=== PATIENT | male | born 1970 | race Caucasian/White ===

== ENCOUNTER 2019-03-24 16:16 | Observation (INO) | payer OTHER, MEDICAID, SELFPAY ==
[2019-03-24] VITALS (9 sets, daily range): BP systolic 95–128; BP diastolic 59–90; PULSE 60–90; RESP 11–18; TEMP 36.4–36.7; O2SAT 96–100
--- NOTE | 2019-03-24 18:31 | ED_ITS ---
HPI - Abdominal Pain General Chief Complaint: Abdominal Pain Stated Complaint: anal pain,insides dont feel good Time Seen by Provider: 03/24/19 18:14 Source: patient Mode of arrival: ambulatory Limitations: no limitations History of Present Illness HPI narrative: Patient is a 1 or a 48-year-old male who presents with multiple complaints including pain with hemorrhoids. He has had ongoing pain for at least 2 years but worse over last 10 days. He has used warm Parra preparation H, he says it is just not getting any better. He has been having some bloody mucousy stools which is not abnormal for him. He has a history of irritable bowel syndrome. He has pain from his upper abdomen to his toes not has also bee n ongoing for 2 years not any worse. He has had very little to eat or drink over last 5 days. In fact he said he has only had a pt of water today and yesterday. He says he does not have any constipation but he does have diarrhea. He has not had any fevers chills Related Data Previous Rx's Medication Instructions Recorded acetaminophen 1,000 mg PO Q6H #30 cap 03/24/19 amoxicillin-pot clavulanate 1 tab PO Q12H #10 tab 03/24/19 oxycodone See Rx Instructions .ROUTE 03/24/19 .COMPLEX PRN #14 tab Allergies Allergy/AdvReac Type Severity Reaction Status Date / Time No Known Drug Allergies Allergy Verified 03/24/19 20:15 Review of Systems Review of Systems Narrative: GENERAL: Denies chills, fatigue, malaise, fever, sweats, travel HEENT: Denies sinus pain, ear pain, sore throat, difficulty swallowing, neck pain RESPIRATORY: Denies dyspnea, cough, wheezing, hemoptysis, sputum. CARDIOVASCULAR: Denies chest pain, palpitations, orthopnea, edema GASTROINTESTINAL: See HPI : Denies dysuria, frequency, incontinence, hematuria, urinary retention, flank pain. MUSCULOSKELETAL: Denies weakness, joint pain, or bony pain SKIN: No rash, no erythema, no pruritus NEUROLOGIC: Denies weakness, dizziness, headache, numbness, change in speech, confusion PSYCHIATRIC: No concerning psychosocial issues. 12 point review of systems is negative except for those stated above and HPI [facility] Medical History Irritable bowel syndrome (Acute) Exam Initial Vital Signs Initial Vital Signs: Vital Signs Temperature 98.1 F 03/24/19 16:26 Pulse Rate 90 03/24/19 16:26 Respiratory Rate 18 03/24/19 16:26 Blood Pressure 121/86 03/24/19 16:26 Pulse Oximetry 100 03/24/19 16:26 GENERAL: Well-appearing, well-nourished and in no acute distress. HEENT: Head atraumatic,EOMI, pupils reactive, face symmetric CARDIOVASCULAR: Regular rate and rhythm without murmurs, rubs or gallops. RESPIRATORY: Breath sounds equal bilaterally, no wheezes rales or rhonchi. ABDOMEN: Soft, nontender. Normoactive bowel sounds all 4 quadrants. No guarding or rebound. RECTAL: External hemorrhoids tender on exam noted not thrombosed no gross blood is Hemoccult-negative no stool EXTREMITIES: Normal range of motion, no clubbing or edema. Neurovascularly intact NEUROLOGICAL: Alert and oriented x4.Normal gait and speech. SKIN: Warm, dry, no laceration, no petechiae, no rashes or lesions. Course Orders Ordered: ED Orders 03/24/19 18:32 CT abdomen pelvis w con Stat 03/24/19 18:55 Complete Blood Count AUTO DIFF Stat Comprehensive Metabolic Panel Stat Lipase Stat Discontinued Medications Acetaminophen (Tylenol) 325 mg PO NOW PRN PRN Reason: Pain, Mild (1-3) Bupivacaine HCl/Epinephrine Bitart (Marcaine 0.25% W/ Epi (Pf)) 5 ml SUBCUT NOW ONE Stop: 03/24/19 20:26 Last Admin: 03/24/19 20:43 Dose: Not Given Documented by: IGNACIA Bupivacaine HCl/Epinephrine Bitart (Sensorcaine 0.25% W/ Epi (Pf)) 30 ml INJ INTRA-OP ONE Stop: 03/24/19 20:42 Last Admin: 03/24/19 23:19 Dose: 30 ml Documented by: KIMBER Fentanyl (Sublimaze) 50 mcg IV Q5MIN PRN PRN Reason: Pain, Moderate (4-6) Hydromorphone HCl (Dilaudid) 1 mg IV NOW ONE Stop: 03/24/19 20:21 Last Admin: 03/24/19 20:23 Dose: 1 mg Documented by: EDA Hydromorphone HCl (Dilaudid) 0.5 mg IV Q5MIN PRN PRN Reason: Pain, Moderate (4-6) Sodium Chloride (Normal Saline 0.9%) 1,000 mls @ 1,000 mls/hr IV CONT BECKI Last Infusion: 03/24/19 20:21 Dose: 0 mls/hr Documented by: Admin: 03/24/19 19:00 Dose: 1,000 mls/hr Documented by: EDA Ceftriaxone Sodium/Dextrose (Rocephin) 1 gm in 50 mls @ 100 mls/hr IV NOW ONE Stop: 03/24/19 20:49 Last Infusion: 03/24/19 21:05 Dose: 0 mls/hr Documented by: Admin: 03/24/19 20:23 Dose: 100 mls/hr Documented by: EDA Metronidazole (Flagyl) 500 mg in 100 mls @ 100 mls/hr IV NOW ONE Stop: 03/24/19 22:51 Last Infusion: 03/24/19 22:57 Dose: 0 mls/hr Documented by: Admin: 03/24/19 22:51 Dose: 100 mls/hr Documented by: CHANI Ceftriaxone Sodium/Dextrose (Rocephin) 1 gm in 50 mls @ 100 mls/hr IV NOW ONE Stop: 03/24/19 22:22 Last Infusion: 03/24/19 22:50 Dose: 0 mls/hr Documented by: Admin: 03/24/19 22:40 Dose: 100 mls/hr Documented by: CHANI Lactated Ringer's (Lactated Ringers) 1,000 mls @ 42 mls/hr IV NOW ONE Stop: 03/25/19 22:00 Last Infusion: 03/25/19 00:15 Dose: 42 mls/hr Documented by: Admin: 03/24/19 22:13 Dose: 42 mls/hr Documented by: STEPHANIE Lactated Ringer's (Lactated Ringers) 1,000 mls @ 42 mls/hr IV CONT [facility] Ketorolac Tromethamine (Toradol) 30 mg IV NOW ONE Stop: 03/24/19 20:17 Last Admin: 03/24/19 20:20 Dose: 30 mg Documented by: EDA Lidocaine HCl (Urojet) 5 ml TOP NOW ONE Stop: 03/24/19 20:17 Last Admin: 03/24/19 20:20 Dose: 5 ml Documented by: EDA Metoclopramide HCl (Reglan) 10 mg IV NOW PRN PRN Reason: Nausea And Vomiting Ondansetron HCl (Zofran) 4 mg IV NOW PRN PRN Reason: Nausea And Vomiting Oxycodone/Acetaminophen (Percocet 5/325) 1 tab PO Q30MIN PRN PRN Reason: Mild or moderate pain Consultations Consultation #1: Dr. Domínguez, surgery updated on patient's symptoms CT results. Appears to be. periAnal abscess. Will come to ED to see and evaluate request rectal tray another supply at bedside. Time: 20:27 Vital Signs Vital signs: Vital Signs - 8 hr 03/24/19 18:18 03/24/19 20:32 Pulse Rate 74 68 Respiratory Rate 18 16 Blood Pressure [Right Arm] 119/86 125/71 Pulse Oximetry 100 98 MDM - Abdominal Pain Lab Data Attestation: I reviewed the patient's lab results. Result diagrams: 03/24/19 18:55 03/24/19 18:55 Labs: Lab Results 03/24/19 03/24/19 Range/Units 18:55 18:55 WBC 7.2 (4.5-11.0) X10^3/uL RBC 5.00 (4.5-5.9) X10^6/uL Hgb 14.3 (13.5-17.5) g/dL Hct 42.0 (41-53) % MCV 84.1 (80-100) fL MCH 28.6 (26-34) PG MCHC 34.0 (30-36) % RDW 13.7 (11.6-14.8) % Plt Count 187 (150-400) X10^3/uL Neut % (Auto) 75.4 H (50-75) % Lymph % (Auto) 13.3 L (25-40) % [place] % (Auto) 9.7 (3-14) % Eos % (Auto) 0.9 L (2-4) % Baso % (Auto) 0.7 (0-2) % Neut # (Auto) 5400 (4637-0487) /uL Lymph # (Auto) 1000 L (8107-4724) /uL [place] # (Auto) 700 (0-900) /uL Eos # (Auto) 100 (0-450) /uL Baso # (Auto) 100 (0-100) /uL Sodium 139 (137-145) mmol/L Potassium 3.2 L (3.4-5.1) mmol/L Chloride 98 (98-107) mmol/L Carbon Dioxide 28 (22-32) mmol/L BUN 14 (9-20) mg/dL Creatinine 1.00 (0.66-1.25) mg/dL Estimated GFR > 60.0 (>60) mL/min BUN/Creatinine Ratio 14.0 (6-22) Glucose 106 H (70-100) mg/dL Calcium 8.7 (8.4-10.2) mg/dL Total Bilirubin 0.7 (0.2-1.3) mg/dL AST 37 (17-59) IU/L ALT 45 (21-72) IU/L Alkaline Phosphatase 100 (38-126) U/L Total Protein 7.3 (6.3-8.2) g/dL Albumin 3.8 (3.5-5.0) g/dL Globulin 3.5 (1.7-4.1) g/dL Albumin/Globulin Ratio 1.1 (1.0-2.8) Lipase 73 (23-300) U/L MDM Narrative Medical decision making narrative: Patient is given a dose Dilaudid and antibiotics. Surgery in the ED to see and evaluate he has reviewed CT actually perirectal abscess. Patient will be going to the OR. Discharge Plan Departure Patient Disposition: Admitted as Observation Clinical Impression: Abscess of rectum Discharge Date/Time: 03/24/19 22:00 Admit Date/Time: 03/24/19 21:34 Admit Provider: Agapito Akbar
--- NOTE | 2019-03-24 18:32 | DI.CT.S_ITS ---
PROCEDURE: CT ABDOMEN PELVIS W CON INDICATIONS: ab pain all over TECHNIQUE: After the administration of intravenous contrast, 5 mm thick sections acquired from the diaphragm to the symphysis. 5 mm coronal and sagittal reformats were acquired. For radiation dose reduction, the following was used: automated exposure control, adjustment of mA and/or kV according to patient size. COMPARISON: [facility], , ABDOMEN ACUTE SERIES, 03/25/2016, 19:18. FINDINGS: Image quality: Excellent. ABDOMEN: Lung bases: Lung bases are clear. Heart size is normal. Solid organs: Liver is normal in size and enhancement. Gallbladder wall is not thickened. Biliary system is non dilated. Pancreas enhances normally. Spleen is normal in size and enhancement. No adrenal nodules. Kidneys demonstrate normal size and enhancement, without hydronephrosis. A 2 mm nonobstructing stone is incidentally noted within the right kidney, as on series 2 image 42. Peritoneum and bowel: There is focal distal colonic wall thickening seen. Surrounding inflammatory changes are seen. There is a left perianal abscess seen that measures up to 4.2 cm AP. This measures 1.7 cm transversely and 2.1 cm AP. Moderate surrounding inflammatory changes are seen. No definite small bowel wall thickening can be seen. There is a small to moderate amount of free fluid seen within the pelvis. No free air is seen. Nodes and vessels: No retroperitoneal or mesenteric adenopathy by size criteria. Aorta and inferior vena cava are normal in size. Miscellaneous: No ventral hernias. PELVIS: Genitourinary: Bladder wall thickness is normal. Miscellaneous: No inguinal hernias or adenopathy. Bones: No suspicious bony lesions. No vertebral body compression fractures. IMPRESSION: Distal colitis. There is a left perianal abscess seen. Given the appearance and age of the patient, concern is raised for ulcerative colitis. However, please correlate with infectious causes. Ischemia is considered to be less likely. A moderate amount of free fluid can be seen within the pelvis. No intraperitoneal abscess can be seen at this time. Please consider short-term followup. Incidental note is made of: 2 mm nonobstructing right-sided kidney stone Dictated by: Getachew Myers M.D. on 03/24/2019 at 19:56 Approved by: Getachew Myers M.D. on 03/24/2019 at 20:04
[2019-03-24] MEDS: SODIUM CHLORIDE 0.9% 1,000 ML 1000 ML IV (19:00)
[2019-03-24 19:12] LABS: Add Manual Diff / Slide Review NO; Basophils Absolute Auto 100 /uL (0-100); Basophils Percent Auto 0.7 % (0-2); Eosinophils Absolute Auto 100 /uL (0-450); Eosinophils Percent Auto 0.9 % (2-4); Hemoglobin 14.3 g/dL (13.5-17.5); Lymphocytes Absolute Auto 1000 /uL (1100-4500); Lymphocytes Percent Auto 13.3 % (25-40); Mean Corpuscular Hemoglobin 28.6 PG (26-34); Mean Corpuscular Volume 84.1 fL (80-100); Monocytes Absolute Auto 700 /uL (0-900); Monocytes Percent Auto 9.7 % (3-14); Neutrophils Absolute Auto 5400 /uL (1500-7000); Neutrophils Percent Auto 75.4 % (50-75); Platelet Count 187 X10^3/uL (150-400); Red Cell Distribution Width 13.7 % (11.6-14.8); White Blood Cell Count 7.2 X10^3/uL (4.5-11.0)
[2019-03-24 19:32] LABS: Alanine Aminotransferase 45 IU/L (21-72); Albumin 3.8 g/dL (3.5-5.0); Albumin Globulin Ratio 1.1 (1.0-2.8); Alkaline Phosphatase 100 U/L (38-126); Aspartate Aminotransferase 37 IU/L (17-59); Bilirubin Total 0.7 mg/dL (0.2-1.3); Blood Urea Nitrogen 14 mg/dL (9-20); Calcium 8.7 mg/dL (8.4-10.2); Carbon Dioxide 28 mmol/L (22-32); Chloride 98 mmol/L (98-107); Estimated Glomerular Filt Rate > 60.0 mL/min (>60); Globulin 3.5 g/dL (1.7-4.1); Glucose 106 mg/dL (70-100); HEMOLYSIS < 15 (0-50); Lipase 73 U/L (23-300); Potassium 3.2 mmol/L (3.4-5.1); Sodium 139 mmol/L (137-145); Total Protein 7.3 g/dL (6.3-8.2)
[2019-03-24] MEDS: KETOROLAC 60 MG/2 ML VIAL 30 MG IV (20:20)
[2019-03-24] MEDS: LIDOCAINE 2% (UROJET) 5 ML GEL TOP (20:20)
[2019-03-24] MEDS: CEFTRIAXONE 1 GM/50 ML FROZ.PIGGY IV ×2 (20:23→22:40)
[2019-03-24] MEDS: HYDROMORPHONE 1 MG INJ IV (20:23)
--- NOTE | 2019-03-24 21:50 | PC.NURSE ---
report to KNIT TUBING DYERSUN Gregory
--- NOTE | 2019-03-24 21:52 | P.HP_ITS ---
History of Present Illness History of Present Illness Date Patient Seen: 03/24/19 Time Patient Seen: 21:52 Chief complaint: anal pain,insides dont feel good Narrative: 48-year-old male with history of ulcerative colitis presented to the emergency department this evening with 1 week of progressive anal pain. Pain is significantly worse with bowel movements. Over the last few days has been becoming significantly worse and today was marked with patient unable to function normally. No difficulty with incontinence of gas stool or liquids In ED WBC 7, CT demonstrated a large complex perirectal abscess. Patient History Medical History Irritable bowel syndrome (Acute) Meds Home Medications and Allergies Allergies Allergy/AdvReac Type Severity Reaction Status Date / Time No Known Drug Allergies Allergy Verified 03/24/19 20:15 Review of Systems Constitutional Constitutional: Denies fever(s) Eyes Eyes: Denies bulging eyes ENT Ears, Nose, Mouth, and Throat: No lip swelling Cardiovascular Cardiovascular: Denies generalize swelling Respiratory Respiratory: Denies stridor Gastrointestinal Gastrointestinal: Denies coffee ground emesis Musculoskeletal Musculoskeletal: Denies loss of height Integumentary/Breasts Skin/Breast: Denies wounds Neurologic Neurologic: Denies abnormal speech and Denies confusion Psychiatric Psychiatric: Denies confusion and Denies tactile hallucinations Endocrine Endocrine: Denies deepening of the voice Hematologic/Lymphatic Hematologic/Lymphatic: Denies lymphadenopathy Allergic/Immunologic Allergic/Immunologic: Denies lip swelling Exam Vital Signs (past 8 hours): - 03/24/19 16:26 03/24/19 18:18 03/24/19 20:32 Temperature 98.1 F Pulse Rate 90 74 68 Respiratory Rate 18 18 16 Blood Pressure 121/86 Blood Pressure [Right Arm] 119/86 125/71 Pulse Oximetry 100 100 98 03/24/19 21:43 Temperature Pulse Rate 60 Respiratory Rate 17 Blood Pressure Blood Pressure [Right Arm] 117/73 Pulse Oximetry 97 Oxygen Delivery Method Room Air Const General: cooperative and healthy appearing Orientation: alert [facility] Head: normal to inspection Nose: nares normal Mouth: oral mucosae normal and lip normal Eyes Eyelids: eyelids normal Conjunctivae: conjunctivae normal Sclera: sclerae normal Neck Neck: supple and other (No thyromegally) Chest Chest: other (LCTAB , regular respiratory effort) Cardio Rhythm: regular rhythm Heart Sounds: S1 normal, S2 normal, no gallops, no murmurs and no rubs GI Other: Abdomen soft minimally tender nondistended. Anus with obvious swelling on left lateral aspect -this is tender to touch appears to be fairly medial within the canal. Unable to obtain good exam due to patient discomfort Skin General: no rashes or lesions noted Neuro General: alert and awake Psych Appearance: grossly normal Affect: normal affect Objective Labs Result Diagrams: 03/24/19 18:55 03/24/19 18:55 Labs: Laboratory Results - last 24 hr 03/24/19 03/24/19 18:55 18:55 WBC 7.2 RBC 5.00 Hgb 14.3 Hct 42.0 MCV 84.1 MCH 28.6 MCHC 34.0 RDW 13.7 Plt Count 187 Neut % (Auto) 75.4 H Lymph % (Auto) 13.3 L [place] % (Auto) 9.7 Eos % (Auto) 0.9 L Baso % (Auto) 0.7 Neut # (Auto) 5400 Lymph # (Auto) 1000 L [place] # (Auto) 700 Eos # (Auto) 100 Baso # (Auto) 100 Sodium 139 Potassium 3.2 L Chloride 98 Carbon Dioxide 28 BUN 14 Creatinine 1.00 Estimated GFR > 60.0 BUN/Creatinine Ratio 14.0 Glucose 106 H Calcium 8.7 Total Bilirubin 0.7 AST 37 ALT 45 Alkaline Phosphatase 100 Total Protein 7.3 Albumin 3.8 Globulin 3.5 Albumin/Globulin Ratio 1.1 Lipase 73 Assessment & Plan Assessment & Plan narrative: 48-year-old man with ulcerative colitis presents with perirectal abscess, significantly tender and complexity of the abscess makes drainage in the ED unwise. By imaging the abscess appears to be intersphincteric, hence I discussed with patient both the possibility of draining seton ends as well as the possibility of primary fistulotomy depending on what is identified. I discussed the small but real risk of incontinence after anal surgery, I discussed the potential for further surgery if the abscess is complex and involves fistula in ANO Plan: To OR this evening for exam under anesthesia, drainage of perirectal abscess, possible placement of seton, possible fistulotomy Has received 1 g of ceftriaxone in ED, should get an additional 1 g for total of 2 g, as well as 500 mg of metronidazole Position prone wojciech-knife Anesthesia-general Risks of surgery including bleeding, infection, need for further surgery, injury to anal sphincter, risk of incontinence all discussed Patient ready to proceed
[2019-03-24] MEDS: LACTATED RINGERS 1,000 ML 42 ML IV (22:13)
[2019-03-24] MEDS: metroNIDAZOLE 500 MG/100 ML PIGGYBACK 100 MG IV (22:51)
--- NOTE | 2019-03-24 23:12 | SUR.OPER ---
Prone on padded OR bed, head in foam head support, gel chest rolls, gel pad under knees, pillow under lower legs, toes free of pressure, arms secured on padded arm boards at <90 degrees abduction. Safety belt at thigh.
[2019-03-24] MEDS: BUPIVACAINE 0.25% W/ EPI 30 ML VIAL INJ (23:19)
--- NOTE | 2019-03-24 23:50 | PM.OP.1 ---
Operative Date/Time/Diagnoses Date of procedure: 03/24/19 Time of procedure: 23:50 Pre-op diagnosis: Perirectal abscess Post-op diagnosis: other (Intrasphincteric posterior/left perirectal abscess) Procedure & Clinicians Procedure: 1) exam under anesthesia 2) incision and drainage of intersphincteric perirectal abscess via internal sphincterotomy Same procedure as scheduled: Yes Indications: 48-year-old man with ulcerative colitis presented to the ED with 7 days of project grass of anal pain, on imaging found to have a large perirectal abscess. Upon close inspected this appeared to be primarily on the left side and appeared to be in the intersphincteric space. Due to patient discomfort he was taken to the operating room for further exploration and drainage, no attempted ED drainage was made Surgeon: Agapito Akbar Click Yes if Unassisted: Yes Anesthesia Type: General Operative Notes Findings: 1) purulent intersphincteric perirectal abscess - moderately large Closure Type: not applicable Specimen(s): none sent Estimated Blood Loss (mL): 10 Procedure in detail: Patient was taken to the operating room he was intubated without incident he was placed in prone wojciech-knife position utilizing Elfego frame. The buttock was taped open. He was prepped and draped in usual sterile fashion. Upon digital rectal exam there is area of fluctuance and fullness along the left posterior aspect of of the rectum. There was no firmness with palpation of the bilateral ischial fossa or posterior deep rectal space. A sayer retractor was inserted into the anus the mucosa was inspected circumferentially. To the left of midline on the posterior aspect of the rectal mucosa just inferior/distal to the dentate line a small tract was identified - by compressing the abscess cavity pus was readily was expressed through this tract. 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 A probe was inserted through this tract into the abscess cavity. Using electrocautery over the probe a small incision was made superiorly/in the direction of the dentate line -a large amount of pus erupted from the area -suction catheter was then placed through the small mucosal incision into the abscess cavity further draining it. At this point I was able to inspect the anatomy more clearly inserting my small finger into the cavity I was able to clearly palpate the external sphincter further lateral and posterior to abscess cavity -this confirmed an intersphincteric abscess. I then elected to better drain the abscess cavity into the rectum via a internal sphincterotomy. The initial vertically oriented incision through the mucosa of the rectum was somewhat enlarged and approximately 1 cm of the fibers of the internal sphincter were incised with Bovie cautery. this more widely drained the cavity. The cavity was then irrigated with normal saline. Hemostasis was confirmed. Using 0.25% bupivacaine with epinephrine a perianal block was performed. Absorbent pad and underwear was placed on the patient Extubated and brought to PACU without incident Complications: none Post-operative Condition: stable Disposition: PACU Plan for aftercare: D/c home
--- NOTE | 2019-03-24 23:57 | SUR.PHASEI ---
to pacu sleeping, jaw thrust necessary - resp deep, regular; skin warm and dry. 2345 aroused spontaneously, airway dc'd; denies pain/nausea 2355 Family to bedside. Sitting up, sips of fluids given. Discussed pain med, patient declines. Dr Aguirre here, talking with patient and family.
[2019-03-25 00:03] VITALS: BP 118/81; PULSE 75; RESP 10; O2SAT 99
[2019-03-25 00:06] VITALS: BP 120/80; PULSE 71; RESP 10; O2SAT 98
--- NOTE | 2019-03-25 00:08 | SUR.PHASEI ---
Surgeon spoke to the patient, answered questions. Pt stable, talking, oriented, resp unlabored.
[2019-03-25 00:11] VITALS: BP 121/79; PULSE 70; RESP 11; TEMP 36.6; O2SAT 97
--- NOTE | 2019-03-25 00:32 | SUR.PHASEII ---
0015 Small amount of pale red drainage on ABD; replace and extra one given for at home. Instructions reviewed with patient, mom, and son. Denies pain, nausea, tolerated sips of coke well. Skin warm and dry, resp unlabored. Stable and ready for discharge.
== END 2019-03-25 00:29 | disposition home or self-care (01) ==
LOC: ED 21:31 → AC 21:35
PROVIDERS: Admitting Provider Surgery; Emergency Provider Emergency Medicine; Family Provider Family Medicine; PCP Family Medicine; Visit Provider Surgery
PROC: (CPT 46040; principal; 2019-03-24 22:10)
DX: K61.4 Intrasphincteric abscess (principal); R10.9 Unspecified abdominal pain; K64.9 Unspecified hemorrhoids
CPT/HCPCS: 46275; 36591; 74177; 80053; 83690; 85025; 96361; 96365; 96375; 99220; 99283; 99285; G0378; J1100; J1170; J1885; J2405; J2704; J2710; J3010; Q9967

== ENCOUNTER 2019-03-29 12:55 | Inpatient (IN) | payer OTHER, MEDICAID, SELFPAY ==
[2019-03-29] VITALS (14 sets, daily range): BP systolic 111–136; BP diastolic 70–89; PULSE 60–88; RESP 10–20; TEMP 36.3–37.2; O2SAT 94–100; BMI 23.1
--- NOTE | 2019-03-29 13:35 | ED.ABDPAIN ---
HPI - Abdominal Pain General Chief Complaint: Abdominal Pain Stated Complaint: states maybe herniated disk Time Seen by Provider: 03/29/19 13:23 Source: patient Mode of arrival: Ambulatory History of Present Illness HPI narrative: 48-year-old male nonsmoker with history of ulcer colitis presents with family in the chief complaint of recurrence of perirectal pain. He has significant discomfort with bowel movements and the development of a painful lump next to his anus. He denies any fever chills nor nausea or vomiting. He last ate at about 930 this morning. He was seen and evaluated under similar circumstances on March 24 and was taken to the OR for incision and drainage of a presumed perirectal abscess. Patient was discharged home on antibiotics. Patient has history ulcerative colitis that is relatively under control per the patient MD complaint: other Onset (ago): day(s) Pain Consistency: constant Severity: moderate Quality: stabbing Radiation: none Migration to: no migration Relieving factors: nothing Associated symptoms: denies other symptoms Related Data Previous Rx's Medication Instructions Recorded acetaminophen 1,000 mg PO Q6H #30 cap 03/24/19 amoxicillin-pot clavulanate 1 tab PO Q12H #10 tab 03/24/19 oxycodone 5 mg tablet 5 mg PO Q4-6H PRN #14 tab 03/25/19 Allergies Allergy/AdvReac Type Severity Reaction Status Date / Time No Known Drug Allergies Allergy Verified 03/24/19 20:15 Review of Systems Constitutional Constitutional: Denies chills, Denies fatigue, Denies fever(s), Denies frequent falls, Denies lethargy and Denies weakness Eyes Eyes: Denies change in vision, Denies eye discharge, Denies irritation and Denies loss of vision ENT Ears, Nose, Mouth, and Throat: Denies change in voice, Denies dizziness, Denies neck pain, Denies sore throat and Denies throat swelling Cardiovascular Cardiovascular: Denies chest pain, Denies irregular heart rhythm, Denies lightheadedness, Denies palpitations, Denies dyspnea, Denies dyspnea on exertion and Denies orthopnea Respiratory Respiratory: Denies cough, Denies dyspnea, Denies dyspnea on exertion and Denies wheezing Gastrointestinal Gastrointestinal: Denies abdominal pain, Denies change in bowel habits, Denies diarrhea, Denies nausea and Denies vomiting Genitourinary Genitourinary: Denies hematuria, Denies flank pain, Denies urinary incontinence and Denies urinary urgency Musculoskeletal Musculoskeletal: Denies back pain, Denies muscle weakness, Denies neck pain, Denies numbness and Denies tingling Integumentary/Breasts Skin/Breast: Denies pruritus, Denies erythema, Denies rash and Denies wounds Neurologic Neurologic: Denies behavioral changes, Denies confusion, Denies dizziness, Denies frequent falls, Denies loss of vision, Denies numbness, Denies tingling and Denies weakness Psychiatric Psychiatric: Denies anxiety, Denies behavioral changes, Denies confusion, Denies depression, Denies homicidal ideation and Denies suicidal ideation Endocrine Endocrine: Denies fatigue, Denies flushing and Denies palpitations Hematologic/Lymphatic Hematologic/Lymphatic: Denies easy bruising Allergic/Immunologic Allergic/Immunologic: Denies urticaria, Denies throat swelling and Denies wheezing [facility] Medical History Irritable bowel syndrome (Acute) Social History Smoking Status: Never smoker alcohol intake: never Exam Narrative Exam Narrative: GEN: AOx3 and in mild distress EYES: Pupils are equal, round, and reactive to light and accommodation. Extraoccular muscles are intact bilaterally. There is no subconjunctival hemorrhage or exudate. CHEST: Lungs are clear to auscultation bilaterally and free of wheezes, rales, or rhonchi. Heart rate is regular rhythm, there are no murmurs, clicks, rubs, or gallops. There is no chest wall tenderness. ABD: Abdomen is soft and nontender. There is no guarding or rebound. Bowel sounds are normal in all 4 quadrants. There is no mass or organomegaly. RECTAL: painful indurated region to Right of anus. Rectal exam results in foul smelling purlent fluid EXT: Full painless ROM of all extremities with no loss of sensation or strength. SKIN: Warm, pink, and dry. No erythema or rash Initial Vital Signs Initial Vital Signs: Vital Signs Temperature 97.9 F 03/29/19 13:22 Pulse Rate 71 03/29/19 13:22 Respiratory Rate 18 03/29/19 13:22 Blood Pressure 136/89 03/29/19 13:22 Pulse Oximetry 98 03/29/19 13:22 Course Orders Ordered: ED Orders 03/29/19 14:00 Basic Metabolic Panel Stat Complete Blood Count AUTO DIFF Stat Fentanyl (Sublimaze) 50 mcg IV Q5MIN PRN PRN Reason: Pain, Moderate (4-6) Hydromorphone HCl (Dilaudid) 0.5 mg IV Q5MIN PRN PRN Reason: Pain, Moderate (4-6) Lactated Ringer's (Lactated Ringers) 1,000 mls @ 125 mls/hr IV CONT BECKI Last Admin: 03/29/19 17:31 Dose: 125 mls/hr Documented by: JOAN Lactated Ringer's (Lactated Ringers) 1,000 mls @ 42 mls/hr IV CONT BECKI Meperidine HCl (Demerol) 25 mg IV Q5MIN PRN PRN Reason: Pain or shivering Metoclopramide HCl (Reglan) 10 mg IV NOW PRN PRN Reason: Nausea And Vomiting Ondansetron HCl (Zofran) 4 mg IV NOW PRN PRN Reason: Nausea And Vomiting Discontinued Medications Hydromorphone HCl (Dilaudid) 0.5 mg IV NOW ONE Stop: 03/29/19 13:42 Last Admin: 03/29/19 14:00 Dose: 0.5 mg Documented by: EDA Sodium Chloride (Normal Saline 0.9%) 1,000 mls @ 1,000 mls/hr IV BOLUS ONE Stop: 03/29/19 14:40 Last Infusion: 03/29/19 15:19 Dose: 0 mls/hr Documented by: Admin: 03/29/19 14:00 Dose: 1,000 mls/hr Documented by: EDA Consultations Consultation #1: call to Gen Surgery, he was C patient the bedside and admit for return to surgery Vital Signs Vital signs: Vital Signs - 8 hr 03/29/19 13:22 03/29/19 14:00 Temperature 97.9 F Pulse Rate 71 61 Respiratory Rate 18 16 Blood Pressure 136/89 Blood Pressure [Right Arm] 122/83 Pulse Oximetry 98 100 MDM - Abdominal Pain Lab Data Result diagrams: 03/29/19 14:00 03/29/19 14:00 Labs: Lab Results 03/29/19 03/29/19 Range/Units 14:00 14:00 WBC 8.0 (4.5-11.0) X10^3/uL RBC 4.72 (4.5-5.9) X10^6/uL Hgb 13.5 (13.5-17.5) g/dL Hct 40.3 L (41-53) % MCV 85.5 (80-100) fL MCH 28.6 (26-34) PG MCHC 33.5 (30-36) % RDW 13.5 (11.6-14.8) % Plt Count 347 (150-400) X10^3/uL Neut % (Auto) 79.0 H (50-75) % Lymph % (Auto) 12.1 L (25-40) % Mcdonald % (Auto) 6.1 (3-14) % Eos % (Auto) 1.9 L (2-4) % Baso % (Auto) 0.9 (0-2) % Neut # (Auto) 6300 (7040-9249) /uL Lymph # (Auto) 1000 L (6922-1328) /uL Mcdonald # (Auto) 500 (0-900) /uL Eos # (Auto) 200 (0-450) /uL Baso # (Auto) 100 (0-100) /uL Sodium 137 (137-145) mmol/L Potassium 3.8 (3.4-5.1) mmol/L Chloride 99 (98-107) mmol/L Carbon Dioxide 26 (22-32) mmol/L BUN 11 (9-20) mg/dL Creatinine 1.00 (0.66-1.25) mg/dL Estimated GFR > 60.0 (>60) mL/min BUN/Creatinine Ratio 11.0 (6-22) Glucose 95 (70-100) mg/dL Calcium 8.8 (8.4-10.2) mg/dL Discharge Plan Departure Patient Disposition: Admitted As Inpatient Clinical Impression: Abscess of rectum Discharge Date/Time: 03/29/19 16:36 Admit Date/Time: 03/29/19 14:41 Admit Provider: Kike Quick
[2019-03-29] MEDS: SODIUM CHLORIDE 0.9% 1,000 ML 1000 ML IV (14:00)
[2019-03-29] MEDS: HYDROMORPHONE 0.5 MG INJ IV (14:00)
[2019-03-29 14:14] LABS: Add Manual Diff / Slide Review NO; Basophils Absolute Auto 100 /uL (0-100); Basophils Percent Auto 0.9 % (0-2); Eosinophils Absolute Auto 200 /uL (0-450); Eosinophils Percent Auto 1.9 % (2-4); Hematocrit 40.3 % (41-53); Hemoglobin 13.5 g/dL (13.5-17.5); Lymphocytes Absolute Auto 1000 /uL (1100-4500); Lymphocytes Percent Auto 12.1 % (25-40); Mean Corpuscular HGB Conc 33.5 % (30-36); Mean Corpuscular Hemoglobin 28.6 PG (26-34); Mean Corpuscular Volume 85.5 fL (80-100); Monocytes Absolute Auto 500 /uL (0-900); Monocytes Percent Auto 6.1 % (3-14); Neutrophils Absolute Auto 6300 /uL (1500-7000); Platelet Count 347 X10^3/uL (150-400); Red Blood Cell Count 4.72 X10^6/uL (4.5-5.9); Red Cell Distribution Width 13.5 % (11.6-14.8)
[2019-03-29 14:26] LABS: Blood Urea Nitrogen 11 mg/dL (9-20); Calcium 8.8 mg/dL (8.4-10.2); Carbon Dioxide 26 mmol/L (22-32); Chloride 99 mmol/L (98-107); Estimated Glomerular Filt Rate > 60.0 mL/min (>60); Glucose 95 mg/dL (70-100); HEMOLYSIS < 15 (0-50); Potassium 3.8 mmol/L (3.4-5.1); Sodium 137 mmol/L (137-145)
--- NOTE | 2019-03-29 16:12 | PC.NURSE ---
report to vadim lopez on inpatient unit
[2019-03-29] MEDS: LACTATED RINGERS 1,000 ML 125 ML IV (17:31)
--- NOTE | 2019-03-29 17:52 | PC.ADMIT ---
[address] [place] [address] Admission Note: The patient,Kei Javed,48 y/o, was given written information regarding hospital policies, unit procedures and contact persons. Patient's smoking status: Never smoker. Vital Signs - 8 hr 03/29/19 13:22 03/29/19 14:00 03/29/19 16:19 Temperature 97.9 F Pulse Rate 71 61 69 Respiratory Rate 18 16 17 Blood Pressure 136/89 Blood Pressure [Right Arm] 122/83 130/82 Pulse Oximetry 98 100 100 03/29/19 16:42 Temperature 98.3 F Pulse Rate 63 Respiratory Rate 18 Blood Pressure 135/85 Blood Pressure [Right Arm] Pulse Oximetry 100 1630: Admitted to room 225 from ED. Awake, alert, and oriented. Ambulating in room, independently, steady gait. Oriented to room, environment, and plan of care. NPO status. IVF initiated. SCDs placed. Mother Flavia at bedside providing supportive care. Call light within reach.
--- NOTE | 2019-03-29 19:52 | PM.HP.1 ---
History of Present Illness History of Present Illness Date Patient Seen: 03/29/19 Time Patient Seen: 11:20 Chief complaint: states maybe herniated disk Narrative: Patient is a gentleman who had an urgent exam under anesthesia and drainage of an intersphincteric abscess by Dr. Akbar on 03/24/2019. He presented the ER with worsening pain and swelling. Is in a slightly different location. Digital exam was performed by the ER doctor report pus draining from the anus. I was asked to see him. The patient states that he has been diagnosed in the past with ulcerative colitis. He has had blood per rectum for 23 years he says. He was supposed to be on medications but could not afford them. He never really completed his treatment or continued his treatment for ulcerative colitis. He states that the diagnosis is made in [place] with biopsies of his colon. Patient History Medical History Irritable bowel syndrome (Acute) Social History Smoking Status: Never smoker alcohol intake: never Family & Social History Social History: Prior Living Arrangements House Safety & Behavioral: Feels Safe in Current Yes Environment Tobacco & Substance use: Smoking Status stop smoking 10 years ago alcohol intake stop drinking as it was making his stool bloody Substance Use Type marijuana Meds Home Medications and Allergies Home Medications Medication Instructions Recorded Confirmed Type acetaminophen 1,000 mg PO Q6H #30 cap 03/24/19 03/29/19 Rx amoxicillin-pot clavulanate 1 tab PO Q12H #10 tab 03/24/19 03/29/19 Rx oxycodone 5 mg tablet 5 mg PO Q4-6H PRN #14 tab 03/25/19 03/29/19 Rx Allergies Allergy/AdvReac Type Severity Reaction Status Date / Time No Known Drug Allergies Allergy Verified 03/24/19 20:15 Review of Systems Review of Systems Narrative: No visual difficulties. Has lost some teeth. No trouble swallowing. No cough or cold at this time. No heart problems or chest pain. He has been tested and is allergic to wheat and milk products both of which cause and diarrhea. No seizures or blackouts. His chronic diarrhea and colitis have disabled him. No history of gallbladder disease. Exam Vital Signs (past 8 hours): - 03/29/19 13:22 03/29/19 14:00 03/29/19 16:19 Temperature 97.9 F Pulse Rate 71 61 69 Respiratory Rate 18 16 17 Blood Pressure 136/89 Blood Pressure [Right Arm] 122/83 130/82 Pulse Oximetry 98 100 100 03/29/19 16:42 Temperature 98.3 F Pulse Rate 63 Respiratory Rate 18 Blood Pressure 135/85 Blood Pressure [Right Arm] Pulse Oximetry 100 Oxygen Delivery Method Room Air Narrative Exam Narrative: Operative no apparent distress. Eyes nonicteric. Oral mucosa is pink moist no open lesions. Missing a few teeth. No nodes in the neck supraclavicular or axillary areas. He has a large heavy bundy. His lungs are clear to auscultation without rales or rhonchi. Heart regular rate and rhythm without murmur gallop. His abdomen is scaphoid soft nontender without mass. Patient is induration perianal area in tenderness. I did not attempt a digital exam is I plan to taken to the operating room. Objective Labs Result Diagrams: 03/29/19 14:00 03/29/19 14:00 Labs: Laboratory Results - last 24 hr 03/29/19 03/29/19 14:00 14:00 WBC 8.0 RBC 4.72 Hgb 13.5 Hct 40.3 L MCV 85.5 MCH 28.6 MCHC 33.5 RDW 13.5 Plt Count 347 Neut % (Auto) 79.0 H Lymph % (Auto) 12.1 L [place] % (Auto) 6.1 Eos % (Auto) 1.9 L Baso % (Auto) 0.9 Neut # (Auto) 6300 Lymph # (Auto) 1000 L [place] # (Auto) 500 Eos # (Auto) 200 Baso # (Auto) 100 Sodium 137 Potassium 3.8 Chloride 99 Carbon Dioxide 26 BUN 11 Creatinine 1.00 Estimated GFR > 60.0 BUN/Creatinine Ratio 11.0 Glucose 95 Calcium 8.8 Assessment & Plan Assessment and plan (1) History of ulcerative colitis: Problem details: Perianal abscess. Could be a new process versus an undrained old 1. Told him I would examine him under anesthesia and treat his abscess. He may need a seton placed. It is impossible to know to lay examine him. All questions were answered. He appears to understand. Current visit: Yes Status: Acute
--- NOTE | 2019-03-29 20:39 | PC.NURSE ---
Michelle shift note: Patient off the floor to surgery with RN via bed. Awake, alert, consent to be signed in surgery. 2039
[2019-03-29] MEDS: HYDROMORPHONE 2 MG INJ 0.5 MG IV ×4 (22:06→22:36)
[2019-03-29] MEDS: metroNIDAZOLE 500 MG/100 ML PIGGYBACK 100 MG IV (22:15)
--- NOTE | 2019-03-29 22:17 | PM.OP.1 ---
Operative Date/Time/Diagnoses Date of procedure: 03/29/19 Time of procedure: 22:00 Pre-op diagnosis: Perirectal abscess. History of ulcerative colitis. Post-op diagnosis: same (Purulent drainage from the colon. Perirectal abscess) Procedure & Clinicians Procedure: Exam under anesthesia, rigid proctoscopy, drainage of perirectal abscess with seton placement. Collection of specimens for culture Same procedure as scheduled: Yes Indications: Perirectal abscess with purulence rectal drainage Surgeon: Kike Quick Click Yes if Unassisted: Yes Anesthesia Type: General Operative Notes Findings: Left anterior induration with small abscess and fistula in ANO. Drained with seton placement. Esther pus draining from the colon down. Specimen submitted for GI pathogens. Closure Type: not applicable Specimen(s): other (Purulence material for testing) Prosthetic devices, grafts, tissues, transplants, or devices: None Estimated Blood Loss (mL): 25 Procedure in detail: The patient is placed Leticia my prone on the operating room table underwent digital examination. The only area of induration was in the left anterior position. Was just to the left of midline. Circumferential exam however with insertion of bivalve anoscope resulted in an explosive drainage of esther pus. There was so much it was impossible to tell initially where it was coming from. Bleeding ensued shortly thereafter. We suctioned out the area and year gated. It appeared that the drainage was actually from above the rectum. I made a small incision in the indurated area of the perianal skin paralleling his sphincter. With blunt dissection I entered a small abscess which easily connected with an internal fistula. Because of the induration I could not tell how deep this tract was so I placed a seton. I then turned my attention to the bleeding. There was a hemorrhoid that appeared to be bleeding that I over sewed a segment of. I used to a chromic to do this. The bleeding was controlled. I then inserted a rigid proctoscope was clear that pus was coming from above. Was not related renal process as best I could tell. The colon was quite soft immediately above the anal verge circumferentially. There were no areas of induration. Specimens were collected and sent for testing for sexually transmitted diseases as well as C diff and other bacterial pathogens.(the patient has no history of note of anal sexual activity but specimens were submitted and nonetheless.) I really did not have a good view of the mucosa through my proctoscope. I chose not to perform biopsies because I think this patient would be better served with a flexible sigmoidoscopy were visualization of the colon wall would be much improved biopsies could be taken at that time. The proctoscope was removed and dressings were applied the patient tolerated the procedure well. Complications: none Post-operative Condition: stable Disposition: PACU
--- NOTE | 2019-03-29 22:18 | SUR.PHASEI ---
States the he's having trouble relaxing, feels like he needs to have a BM; placed on a bedpan. States that pain is improving to 8/10. See flacc
[2019-03-29] MEDS: LORazepam 2 MG/ML INJ 0.25 MG IV (22:40)
--- NOTE | 2019-03-29 22:59 | SUR.PHASEI ---
States that his pain is 3/10. HOB elevated, drinking fluids, no nausea, repositioned for comfort, skin warm and dry, resp unlabored. Dr. Quick has spoken to the patient at least twice. [id number] Attempted to call report to floor, unable to obtain a nurse.
[2019-03-29 23:25] LABS: Campylobacter Not Detected (Not Detect); Clostridium difficile toxin AB Detected (Not Detect); Cryptosporidium Not Detected (Not Detect); Cyclospora cayetanensis Not Detected (Not Detect); Entamoeba histolytica Not Detected (Not Detect); Enteroaggregative E.coli Not Detected (Not Detect); Enteropathogenic E.coli Not Detected (Not Detect); Enterotoxigenic E.coli It/st Not Detected (Not Detect); Giardia lamblia Not Detected (Not Detect); Plesiomonsa shigelloides Not Detected (Not Detect); Salmonella Not Detected (Not Detect); Shiga-like toxin-prod E.coli Not Detected (Not Detect); Shigella/Enteroinvasive E.coli Not Detected (Not Detect); Vibrio Not Detected (Not Detect); Vibrio cholerae Not Detected (Not Detect); Yersinia enterocolitica Not Detected (Not Detect)
[2019-03-29 23:26] LABS: Adenovirus F 40/41 Not Detected (Not Detect); Astrovirus Not Detected (Not Detect); Norovirus GI/GII Not Detected (Not Detect); Rotavirus A Not Detected (Not Detect)
--- NOTE | 2019-03-29 23:39 | SUR.PHASEI ---
2322 to room 225, bed down and locked, call light within reach. report given to RN on arrival. recommended contact precautions. Pt calm, pain 1/, stable, scant drainage on dressing approx [id number]
[2019-03-30] VITALS (11 sets, daily range): BP systolic 106–145; BP diastolic 61–86; PULSE 58–70; RESP 10–20; TEMP 36.4–37.2; O2SAT 97–100
--- NOTE | 2019-03-30 | PATH_ITS ---
[facility] Accession Number: [id number] . 01 Material submitted: . sigmoid colon - SIGMOID COLON . 01 Clinical history: . SUSPECT C. DIFFICILE . 02 Diagnosis: Sigmoid Colon, Biopsy: Active colitis with ulcer and crypt archtiectural distortion; please see comment. Negative for granulomata, dysplasia or malignancy. V 03/31/2019 0945 Local . 02 Comment: The histologic findings raise a differential diagnosis including infection, drug/toxin-induced injury and, in the appropriate clinical setting, idiopathic inflammatory bowel disease. The clinical suspicion for C. difficile colitis is noted; however, features specific for this entity are not seen in these biopsies. That said, C. difficile colitis cannot be entirely excluded on histologic grounds. Please correlate with clinical and laboratory findings. . 02 Electronically signed: . Jorge Ferrell MD, PhD, Pathologist NPI- [id number] . 01 Gross description: . SIGMOID COLON: Received in formalin are multiple fragment(s) of vick, soft tissue measuring 0.1 x 0.1 x 0.1 cm to 0.3 x 0.2 x 0.2 cm which is entirely submitted and submitted entirely in 1 cassette(s) [place] [place]/30/2019 2119 Local . 02 Pathologist provided ICD-10: K62.6 . 02 CPT . 599283 Performed at: 01 [facility] [address] [facility], [place], [place] [id number] MD Mannie Fulton MD Phone: [phone] Performed at: 02 [facility] [address] [place], [place] [id number] MD Rhonda Pizarro MD Phone: [phone]
[2019-03-30] MEDS: CEFTRIAXONE 2 GM/50 ML FROZ.PIGGY IV (00:21)
--- NOTE | 2019-03-30 03:43 | PC.NURSE ---
Safe hand off from PATTERN DEVELOPER, per pacu pt is on clear liquid diet. Pt arrived via stretcher and was able to ambulate to bed. Pt's post op VSS, lung sounds clear bilaterally. Pt has no complaints of pain or nausea. Lab called at 0100 to give results that patient was positive for CDiff. Pt has had loose runny light brown stool tinged w/ blood. Pt is wearing a pad w/ mesh underwear because of flatulence and stool discharge with flatulence. Pt is standby assist. Pt was educated about CDiff and contact precautions. Pt's call light is in within reach, SCD's are applied bilaterally.
[2019-03-30 05:47] LABS: Add Manual Diff / Slide Review NO; Basophils Absolute Auto 0 /uL (0-100); Basophils Percent Auto 0.2 % (0-2); Eosinophils Absolute Auto 0 /uL (0-450); Hematocrit 39.6 % (41-53); Lymphocytes Absolute Auto 500 /uL (1100-4500); Lymphocytes Percent Auto 5.5 % (25-40); Mean Corpuscular HGB Conc 32.9 % (30-36); Mean Corpuscular Hemoglobin 28.3 PG (26-34); Monocytes Absolute Auto 400 /uL (0-900); Monocytes Percent Auto 3.9 % (3-14); Neutrophils Absolute Auto 9000 /uL (1500-7000); Neutrophils Percent Auto 90.4 % (50-75); Platelet Count 389 X10^3/uL (150-400); Red Cell Distribution Width 13.9 % (11.6-14.8)
[2019-03-30] MEDS: DEXTROSE 5%-0.45% NS 1,000 ML 125 ML IV ×2 (08:55)
[2019-03-30] MEDS: MESALAMINE 800 MG TABLET.DR 1600 MG PO ×3 (08:55→20:44)
--- NOTE | 2019-03-30 11:28 | CM.DANOTE ---
DCP: Case received, EMR reviewed and met with patient. Introduced self and role. Was able to meet with patient and obtain baseline information regarding living situation. Mother, Flavia, also at bedside. DCP assessment/template completed with information currently available. Patient is a 48 year old male who admitted yesterday afternoon via family vehicle. PCP: Dr. Constantino. Payer: confirmed: [facility]/Medicaid. Patient came to the hospital via family vehicle secondary to abdominal/back pain. Patient holds diagnosis of venessa-rectal abscess. Patient has history of colitis as well. Met with him briefly in room. Alert and oriented, mother in room. Lives here in [place], is independent, self employed. Patient is in isolation, potential C-diff. P: DCP to continue to follow closely. Patient should be able to go home when stable, will need to follow up with PCP. According to patient, Dr. Constantino has retired, but has been assigned to new provider in office, Dr. Pandya. Will need to be compliant on medications as well. Janine New RN/Floral Manager
[2019-03-30] MEDS: metroNIDAZOLE 500 MG/100 ML PIGGYBACK 100 MG IV ×2 (14:11)
--- NOTE | 2019-03-30 14:15 | PM.OP.ENDO ---
Operative Date/Time/Diagnoses Date of procedure: 03/30/19 Time of procedure: 14:15 Pre-op diagnosis: The C difficile colitis. History of ulcerative colitis. Post-op diagnosis: same Procedure & Clinicians Study performed: Flexible sigmoidoscopy with biopsy Same procedure as scheduled: Yes Indications: Diagnostic Surgeon: Kike Quick Procedure Notes SCOAP/Timeout: Performed Procedure in detail: Patient was placed in left lateral decubitus position and was given IV sedation consisting fentanyl and Versed. Topical anesthetic was applied is anal verge. This was 2% lidocaine jelly. Scope was inserted and advanced to level of 30 cm. I encountered purulence discharge and what appeared to be pseudomembranes all along the way along with marked inflammation of the colon wall with a complete lack of normal mucosa. Irrigating off the purulence discharge revealed a red substrate without normal mucosal appearance. I took a few random biopsies to determine if this was a combination of ulcerative colitis and C diff or simply C diff colitis. It may actually be difficult to tell. I injected 250 cc of diluted Flagyl into the patient's colon and had him rotate in order to disperse it. The scope was withdrawn. As cultures had been already sent no further testing was done on the discharge. Patient appeared to tolerate the procedure well. Scope withdrawal time: Not applicable Sedation minutes: 10 Findings: other findings (Colitis) Specimen(s): other (Biopsies) Complications: none Post-procedure Recommendations: Continue medication(s) (Flagyl) Plan for aftercare: Continue hospitalization Disposition: PACU (Recovering in the colonoscopy suite)
[2019-03-30] MEDS: fentaNYL 250 MCG/5 ML INJ IV (14:22)
[2019-03-30] MEDS: MIDAZOLAM 5 MG/5 ML VIAL IV (14:23)
--- NOTE | 2019-03-30 14:57 | SUR.PHASEI ---
Pt recovered in the Endo room. VS stable. Pt reported 1/10 rectal and abd pain. IV saline locked. Transferred to the floor. Report called to Paz. Left patient in care of Paz.
[2019-03-30] MEDS: VANCOMYCIN 125 MG CAPSULE PO ×3 (15:00→20:44)
[2019-03-30] MEDS: OXYCODONE/ACETAMINOPHEN 5/325 TABLET 2 TAB PO (20:51)
[2019-03-31] MEDS: OXYCODONE/ACETAMINOPHEN 5/325 TABLET 2 TAB PO ×3 (00:03→10:21)
[2019-03-31 03:49] VITALS: BP 124/76; PULSE 68; RESP 18; TEMP 36.6; O2SAT 100
[2019-03-31] MEDS: DEXTROSE 5%-0.45% NS 1,000 ML 125 ML IV ×3 (04:27→23:03)
[2019-03-31] MEDS: MORPHINE 4 MG/ML INJ IV (04:31)
[2019-03-31 08:00] VITALS: BP 121/76; PULSE 64; RESP 16; TEMP 36.4; O2SAT 100
[2019-03-31] MEDS: VANCOMYCIN 125 MG CAPSULE PO ×4 (09:23→20:34)
[2019-03-31] MEDS: MESALAMINE 800 MG TABLET.DR 1600 MG PO ×3 (09:23→20:33)
--- NOTE | 2019-03-31 12:52 | CM.DPC ---
DCP: continued: case received, EMR reviewed. Met with pt and introduced self and role. Pt clarified the information on his face sheet and in the EMR: He lives alone at [address] He no longer has a phone; by choice he says. His mother Flavia does live in [place] but not with him. She is no longer at the [facility] address. He thinks the land line listed is likely not correct. He has been assigned to Dr. Case/[facility] as Dr. Constantino has retired. He has not had an appt with her yet. Dr. Quick took pt to surgery night of 03/29 for drainage of venessa-rectal abscess and placement of seton. Edoscopy done 03/30 confirms c-diff colitis. P: follow as POC unfolds. Pt is functionally independent at baseline but it is unclear what he may need medically.
[2019-03-31] MEDS: OXYCODONE IR 10 MG TABLET PO ×2 (14:58→19:28)
[2019-03-31 15:10] VITALS: BP 132/78; PULSE 73; RESP 16; TEMP 37.6; O2SAT 100
--- NOTE | 2019-03-31 15:47 | DIET.PN ---
Dietary Progress Note Assessment: 48y M referred to nutrition for wt loss associated c ulcerative colitis dx 2y ago but has been dealing c for 23y. Pt has extensive food allergies, limiting clear and full liquid diet offerings to: apple juice. the list of foods that he can usually safely eat includes: veg: green pea, sweet potato, red and white potato no skin, butternut squash, carrot, carrot, string larsen, iceburg lettuce, garlic fruit: apple (no skin), apple sauce, banana, cantaloupe grain: oats (gf), oat flour, white rice protein: chicken, pork, turkey, shrimp, tuna, tofu Pt current flare r/t cooking pork on a cast iron gerardo containing some hamburger grease (allergen). Led to flu like sx, vomiting and diarrhea. Last meal was oat flour mixed c warm water and apple sauce Friday at 9:30am. Pt has poor dentation r/t malnutrition (lack of vit C and zinc), some safe foods cannot be eaten because they get stuck in teeth and infected. Ht: 187.6cm Wt: 81kg UBW: 85kg BMI 23 Nutrition Dx: Poor nutrition quality of life r/t limited food choices aeb poor dentation, severe ulcerative colitis. Inadequate Protein energy intake r/t limited food choices aeb diet order currently clear liquid only allowing apple juice as an option, last meal was 2d ago. Intervention: 1. Recc low residue diet per direction of surgery team using above mentioned ingredients. 2. Recc MVI c minerals, Calcium and Vit D supps, consider added Vit C and Zinc per esther deficiency r/t dentation. EERs: 100g PRO (1.2 g/kg), 2.8L fluids, 2800kcal (35kcal/kg)
--- NOTE | 2019-03-31 16:06 | PC.NURSE ---
Skin: Having more pain today but didn't like the morphine. Oral meds wearing off at 4 hrs, md notified and see new orders. Pt thinks the orals work better for longer. Radha-area/buttock has been more painful today. Discussed what he would be doing for wound care at d/c. pt didn't know the wound is packed. He did think about it and spoke with his mom who is willing to help him with wound care if needed. He understands MD will make final decisions about what his wound care would be, ect. He seemed satisfied, he just wants to be able to go home at discharge when that time arrives. Pt is taking clear liq w/out problems and has been up in room for the most part indep. Pt reports his diarrhea is much less today and he is having more form to his stool. Resting quietly at the moment. Cont w/poc.
[2019-03-31] MEDS: VANCOMYCIN 500 MG, SODIUM CHLORIDE 0.9% 100 ML PR (18:48)
--- NOTE | 2019-03-31 19:06 | PM.PN.1 ---
Subjective Subjective Date Patient Seen: 03/31/19 Time Patient Seen: 19:06 Interval history: Patient is a gentleman with severe C difficile colitis that may also be made worse by untreated ulcerative colitis. He initially received IV and per rectal Flagyl before starting oral vancomycin. He states he is feeling much better than when he came in but is still having a fair amount of abdominal pain and cramping. He said he actually had a bowel movement today that was stool. It was soft and pudding like. He is tolerating clear liquids well and drinking the supplement. Exam Vital Signs (past 8 hours): - 03/31/19 15:10 Temperature 99.7 F H Pulse Rate 73 Respiratory Rate 16 Blood Pressure 132/78 Pulse Oximetry 100 Oxygen Delivery Method Room Air Oxygen Flow Rate 0 Narrative Exam Narrative: No apparent distress. Lungs are clear. Abdomen is scaphoid and soft. No obvious tenderness. Anal exam seton is in place. There is some edema rounded as expected. Objective Labs Result Diagrams: 03/30/19 05:00 03/29/19 14:00 Assessment & Plan Assessment & Plan narrative: Clinically improving slowly. I gave the patient of 500 mg of vancomycin. It was delighted and 100 cc of saline and I added an additional 100. This was given per rectum in 60 cc aliquots and the patient was placed in trend down steep tendril a Apple rotated to distribute it through the colon. He tolerated this well. I asked him to hold it until he had to have a bowel movement. Continuing the Asacol as well. Do not want to use steroids given the severe nature of his colitis and C diff. Thus far he is tolerating treatment fairly well. Will back off a bit on his IV fluid.
[2019-03-31 19:25] VITALS: BP 131/67; PULSE 80; RESP 16; O2SAT 100
[2019-04-01] VITALS (7 sets, daily range): BP systolic 107–142; BP diastolic 68–78; PULSE 72–99; RESP 16–20; TEMP 36.4–37.8; O2SAT 96–100
[2019-04-01] MEDS: OXYCODONE IR 10 MG TABLET PO ×3 (00:28→08:45)
[2019-04-01 06:08] LABS: Add Manual Diff / Slide Review NO; Basophils Absolute Auto 100 /uL (0-100); Basophils Percent Auto 0.5 % (0-2); Eosinophils Absolute Auto 100 /uL (0-450); Eosinophils Percent Auto 0.7 % (2-4); Hematocrit 38.2 % (41-53); Hemoglobin 12.5 g/dL (13.5-17.5); Lymphocytes Absolute Auto 1200 /uL (1100-4500); Lymphocytes Percent Auto 8.9 % (25-40); Mean Corpuscular HGB Conc 32.7 % (30-36); Mean Corpuscular Hemoglobin 28.2 PG (26-34); Mean Corpuscular Volume 86.4 fL (80-100); Monocytes Absolute Auto 1600 /uL (0-900); Monocytes Percent Auto 11.6 % (3-14); Neutrophils Absolute Auto 10600 /uL (1500-7000); Neutrophils Percent Auto 78.3 % (50-75); Platelet Count 350 X10^3/uL (150-400); Red Blood Cell Count 4.42 X10^6/uL (4.5-5.9); Red Cell Distribution Width 13.4 % (11.6-14.8); White Blood Cell Count 13.6 X10^3/uL (4.5-11.0)
[2019-04-01] MEDS: MESALAMINE 800 MG TABLET.DR 1600 MG PO ×3 (08:45→19:54)
[2019-04-01] MEDS: VANCOMYCIN 125 MG CAPSULE PO ×4 (08:45→19:54)
--- NOTE | 2019-04-01 10:13 | PC.NURSE ---
Addendum entered by Kiana Greer R.N. 04/01/19 14:30: Patient agreeable to shower, did not want to do sitz bath, states it hurts too much to sit. Original Note: Patient rating pain to rectum 2/10, requesting oxycodone, 10mg given. Patient up ambulating indep, voided in bathroom, no stools this shift so far.
[2019-04-01] MEDS: DEXTROSE 5%-0.45% NS 1,000 ML 125 ML IV (11:09)
[2019-04-01] MEDS: ACETAMINOPHEN 325 MG TABLET 650 MG PO ×3 (12:49→23:58)
[2019-04-01] MEDS: LIDOCAINE 5% OINT 35 GM 1 APPLIC TOP ×2 (14:43→19:53)
[2019-04-01] MEDS: OXYCODONE IR 5 MG TABLET PO ×3 (15:40→23:58)
--- NOTE | 2019-04-01 15:59 | DIET.PN ---
Dietary Progress Note Assessment: 48y M referred to nutrition for wt loss associated c ulcerative colitis dx 2y ago but has been dealing c for 23y. Pt is tolerating clear liquid diet, has been advanced to full liquid but cannot eat dairy so limited in choices. For dinner: Ensure Clear, jello, chicken broth and vegetable broth. Pt plans to purchase MVI, Vit C (which doesn't irritate mouth when taking) and Zinc supps. Pt will menu plan from approved food list focusing on adequate PRO. Pt has extensive food allergies and triggers leading to poor nutrition quality of life and malnutrition. Moderate Chronic PCM r/t extensive food avoidances secondary to severe ulcerative colitis aeb poor dentation from esther Vit C and zinc deficiency, 7.5% wt loss in 3 mo, mild to moderate fat and muscle depletion, anal abscess positive for c.diff. Pt has poor dentation r/t malnutrition (lack of vit C and zinc), some safe foods cannot be eaten because they get stuck in teeth and infected. Ht: 187.6cm Wt: 81kg UBW: 85kg BMI 23 Intervention: 1. Recc low residue diet per direction of surgery team, hospital kitchen is aware of food restrictions and can accommodate. 2. Recc MVI c minerals, Calcium and Vit D supps, consider added 500mg Vit C and 50mg Zinc per esther deficiency r/t dentation. EERs: 100g PRO (1.2 g/kg), 2.8L fluids, 2800kcal (35kcal/kg)
[2019-04-01] MEDS: GABAPENTIN 300 MG CAPSULE PO (19:54)
[2019-04-01] MEDS: DEXTROSE 5%-0.45% NS 1,000 ML 80 ML IV (23:58)
[2019-04-02] MEDS: OXYCODONE IR 5 MG TABLET PO (04:01)
[2019-04-02 05:25] VITALS: BP 130/72; PULSE 92; RESP 17; TEMP 37.1; O2SAT 100
[2019-04-02] MEDS: ACETAMINOPHEN 325 MG TABLET 650 MG PO ×3 (06:01→20:07)
[2019-04-02 08:00] VITALS: BP 130/79; PULSE 76; RESP 16; TEMP 36.4; O2SAT 100
[2019-04-02 08:40] LABS: Syphilis AB Cascading Reflex NEGATIVE (Negative)
[2019-04-02] MEDS: VANCOMYCIN 125 MG CAPSULE PO ×4 (09:21→20:07)
[2019-04-02] MEDS: MESALAMINE 800 MG TABLET.DR 1600 MG PO ×3 (09:21→20:07)
[2019-04-02] MEDS: GABAPENTIN 300 MG CAPSULE PO ×2 (09:21→20:07)
[2019-04-02 12:09] VITALS: BP 120/75; PULSE 70; RESP 16; TEMP 36.3; O2SAT 100
[2019-04-02] MEDS: DEXTROSE 5%-0.45% NS 1,000 ML 80 ML IV (12:42)
--- NOTE | 2019-04-02 14:29 | CM.DPC ---
Addendum entered by Peace Lopez LPN 04/02/19 14:49: Clarification: no surgical progress note since 03/31. Original Note: DCP; continued: EMR reviewed. No progress note from general surgical team noted since 04/01. Did check in with SUN Gonzalez. She said Dr. Justice, rounding today for surgery, will be in later today. DCP team will continue to follow and look for surgeon guidance on what may be needed for pt after d/c.
--- NOTE | 2019-04-02 15:05 | PM.PN.1 ---
Subjective Subjective Date Patient Seen: 04/02/19 Time Patient Seen: 12:00 Interval history: No acute events overnight. Three small loose stools reported. No blood or melena reported. Pain well controlled with PO pain med. Exam Vital Signs (past 8 hours): - 04/02/19 08:00 04/02/19 12:09 Temperature 97.5 F L 97.3 F L Pulse Rate 76 70 Respiratory Rate 16 16 Blood Pressure 130/79 120/75 Pulse Oximetry 100 100 Oxygen Delivery Method Room Air Oxygen Flow Rate 0 Narrative Exam Narrative: alert, oriented, comfortable pt doing calisthenics in his room pulm: normal respirations CV: normal rate, no LE edema abd: soft, nondistended, minimal TTP Perianal area: seton in place, no active bleeding or drainage; no stool staining; moderately TTP with moderate perianal edema, no areas of induration or fluctuance peripad with minimal bloody drainage on it Objective Labs Result Diagrams: 04/02/19 15:05 03/29/19 14:00 Labs: Laboratory Results - last 24 hr 03/29/19 03/30/19 21:40 05:00 T.pall Ab(FTA-ABS)Reflex Negative C.trachomatis RNA (TMA) N.gonorrhoeae RNA (TMA) Assessment & Plan Assessment & Plan narrative: 48 yo man with history of untreated IBD, recent I and D of perianal abscess, admitted now with acute C diff infection. WBC normal today; no more loose stool during the day today. Moderate pain, not needing pain meds during the day today. Plan: Continue full liquid diet Dispo planning pending pt is able to tolerate a diet, manage his wound care and bowel movements at home, pain is well controlled on PO pain med, and pt can follow up with GI as outpatient Time Spent With Patient Time with patient: 15-24 minutes Quality VTE Deep Vein Thrombosis/Pulmonary Embolism Present on Admission: No
[2019-04-02 15:24] LABS: Add Manual Diff / Slide Review NO; Basophils Absolute Auto 0 /uL (0-100); Basophils Percent Auto 0.3 % (0-2); Eosinophils Absolute Auto 100 /uL (0-450); Eosinophils Percent Auto 1.3 % (2-4); Hematocrit 38.5 % (41-53); Hemoglobin 13.1 g/dL (13.5-17.5); Lymphocytes Absolute Auto 1400 /uL (1100-4500); Lymphocytes Percent Auto 13.2 % (25-40); Mean Corpuscular HGB Conc 34.1 % (30-36); Mean Corpuscular Hemoglobin 29.2 PG (26-34); Mean Corpuscular Volume 85.6 fL (80-100); Monocytes Absolute Auto 800 /uL (0-900); Monocytes Percent Auto 7.8 % (3-14); Neutrophils Absolute Auto 8200 /uL (1500-7000); Neutrophils Percent Auto 77.4 % (50-75); Platelet Count 393 X10^3/uL (150-400); Red Cell Distribution Width 13.2 % (11.6-14.8); White Blood Cell Count 10.6 X10^3/uL (4.5-11.0)
--- NOTE | 2019-04-02 15:40 | PC.NURSE ---
Addendum entered by Lisa Lozano R.N. 04/02/19 15:52: pt having moderate amount of drainage onto peripads, changed approx 3 times this shift. Original Note: Day Shift- Pt indep in room. He plans to have a shower after any BM's. Voiding qs. Perianal wound has packing with small flexible orange tag sticking out of wound. Pt using venessa-pads to absorb any wound drainage and mesh pads. Skin surrounding intact, not irriated. Placed on and educated pt on use of barrier cream to protect skin around wound. Pt does have a skin tear that is slightly macerated and pink to coccyx. Pt states having burning sensation to anal wound. rated 1-2/10. Pain management plan discussed. Pt had prn Tylenol at 1242. Spoke with Dr. Justice in early afternoon briefly on pt update, regarding packing in wound and no orders to change. will see pt later this afternoon.
[2019-04-02 16:00] VITALS: BP 134/80; PULSE 68; RESP 16; TEMP 36.7; O2SAT 94
[2019-04-02 20:00] VITALS: BP 131/80; PULSE 70; RESP 16; TEMP 36.4; O2SAT 99
[2019-04-02] MEDS: ONDANSETRON 4 MG/2 ML INJ IV (20:07)
[2019-04-03 00:55] VITALS: BP 113/72; PULSE 71; RESP 16; TEMP 36.6; O2SAT 99
[2019-04-03] MEDS: ACETAMINOPHEN 325 MG TABLET 650 MG PO ×2 (02:06→08:40)
[2019-04-03 05:13] VITALS: BP 121/68; PULSE 70; RESP 16; TEMP 36.9; O2SAT 99
[2019-04-03] MEDS: GABAPENTIN 300 MG CAPSULE PO ×2 (08:41→21:16)
[2019-04-03] MEDS: VANCOMYCIN 125 MG CAPSULE PO ×4 (08:41→21:16)
[2019-04-03] MEDS: MESALAMINE 800 MG TABLET.DR 1600 MG PO ×3 (08:41→21:17)
--- NOTE | 2019-04-03 10:13 | PC.NURSE ---
Addendum entered by Marla Alexis R.N. 04/03/19 14:45: Saline locked IV per MD order. Site in L FA yesterday. The only IV med patient is on is Zofran, and he has not required it from me. He said he's fine with having it available PO or SL. Plan is to have rena shift RN check with Dr Quick to see if we can remove IV and leave out. Otherwise will need new IV site, and patient is agreeable if MD says he needs it. Original Note: Shift summary: Awake and alert, oriented X3. Indep with mobility and showering, steady on feet and comes out as a low fall risk. Pain/discomfort well-managed with Tylenol at the time being. Reports slight nausea, denied need for anti-emetic. Has had 1 loose BM this morning, and showered afterwards. Patient has a small orange tab protruding out of the anus. Patient reports Dr Quick said there's no packing in there, that orange tag goes to something that is in there to keep the abscess site from closing up. Wearing venessa-pads w/mesh panties and states drainage from site is fairly minimal and usually yellow in color. States he's tolerating full liquids and would ideally like some more substantial food. Able to make needs known and calls appropriately. Light and belongings in reach.
[2019-04-03 11:00] VITALS: BP 118/71; PULSE 74; RESP 16; TEMP 36.7; O2SAT 99
--- NOTE | 2019-04-03 12:55 | PM.PN.1 ---
Subjective Subjective Date Patient Seen: 04/03/19 Time Patient Seen: 09:00 Interval history: The patient is a gentleman under treatment for C difficile colitis. His abdomen he says feels much better than it did. He still has a fair amount of anal pain related to his abscess. He is having some drainage there. Exam Vital Signs (past 8 hours): - 04/03/19 05:13 04/03/19 11:00 Temperature 98.4 F 98.1 F Pulse Rate 70 74 Respiratory Rate 16 16 Blood Pressure 121/68 118/71 Pulse Oximetry 99 99 Oxygen Delivery Method Room Air Oxygen Flow Rate 0 Narrative Exam Narrative: Excellent respiratory effort. Abdomen is scaphoid soft nontender. No guarding. No hernias. Anal area seton is visible. There is no induration in the perianal tissues. No unusual tenderness. The only tenderness is in the area of the seton. Objective Labs Result Diagrams: 04/02/19 15:05 03/29/19 14:00 Labs: Laboratory Results - last 24 hr 04/02/19 15:05 WBC 10.6 RBC 4.50 Hgb 13.1 L Hct 38.5 L MCV 85.6 MCH 29.2 MCHC 34.1 RDW 13.2 Plt Count 393 Neut % (Auto) 77.4 H Lymph % (Auto) 13.2 L [place] % (Auto) 7.8 Eos % (Auto) 1.3 L Baso % (Auto) 0.3 Neut # (Auto) 8200 H Lymph # (Auto) 1400 [place] # (Auto) 800 Eos # (Auto) 100 Baso # (Auto) 0 Assessment & Plan Assessment and plan (1) Abscess of rectum: Problem details: Continue showers warm Sitz baths. Continue pain management but am weaning narcotics. Current visit: Yes Status: Acute (2) History of ulcerative colitis: Problem details: Continue Asacol Current visit: Yes Status: Acute (3) C. difficile colitis: Problem details: Continue p.o. vancomycin. Current visit: Yes Status: Acute Quality VTE Deep Vein Thrombosis/Pulmonary Embolism Present on Admission: No
[2019-04-03] MEDS: ENOXAPARIN 40 MG/0.4 ML SYRINGE SUBCUT (14:15)
[2019-04-03] MEDS: SODIUM CHLORIDE 0.9% FLUSH 10 ML IV (14:16)
[2019-04-03 15:25] VITALS: BP 127/77; PULSE 68; RESP 18; TEMP 36.8; O2SAT 100
[2019-04-04 00:15] VITALS: BP 125/76; PULSE 63; RESP 16; TEMP 36.9; O2SAT 99
[2019-04-04 06:43] VITALS: BP 132/89; PULSE 58; RESP 16; TEMP 36.9; O2SAT 100
[2019-04-04 07:45] VITALS: BP 123/78; PULSE 62; RESP 14; TEMP 36.9; O2SAT 100
[2019-04-04] MEDS: GABAPENTIN 300 MG CAPSULE PO (09:14)
[2019-04-04] MEDS: MESALAMINE 800 MG TABLET.DR 1600 MG PO (09:14)
[2019-04-04] MEDS: VANCOMYCIN 125 MG CAPSULE PO (09:14)
[2019-04-04] MEDS: ACETAMINOPHEN 325 MG TABLET 650 MG PO (09:15)
[2019-04-04] MEDS: ENOXAPARIN 40 MG/0.4 ML SYRINGE SUBCUT (09:15)
[2019-04-04 11:08] VITALS: BP 117/77; PULSE 68; RESP 16; TEMP 36.5; O2SAT 97
--- NOTE | 2019-04-04 12:29 | PC.NURSE ---
Discharge: IV was dc'd yesterday. Reviewed all d/c instructions thoroughly. Patient already has a follow up appt scheduled for Saturday 04/07, and plans to keep that appt and will schedule further follow-ups as directed. Given script for Oxycodone, all other scripts sent to [facility] (and patient aware of the same). Provided and reviewed lots of education info on C.difficile. Instructed to shower after BM's and sitz bath as directed. Verbalized understanding of all d/c instructions and stated no further questions. All personal belongings collected and sent with patient. Walked out to private vehicle accompanied by nursing staff.
--- NOTE | 2019-04-04 23:28 | P.DS_ITS ---
History of Present Illness History of Present Illness Chief complaint: states maybe herniated disk Narrative: Patient is a gentleman who had an urgent exam under anesthesia and drainage of an intersphincteric abscess by Dr. Akbar on 03/24/2019. He presented the ER with worsening pain and swelling. Is in a slightly different location. Digital exam was performed by the ER doctor report pus draining from the anus. I was asked to see him. The patient states that he has been diagnosed in the past with ulcerative colitis. He has had blood per rectum for 23 years he says. He was supposed to be on medications but could not afford them. He never really completed his treatment or continued his treatment for ulcerative colitis. He states that the diagnosis is made in [place] with biopsies of his colon. Discharge Providers Provider Date of admission: 03/29/19 14:41 Discharge Date: 04/04/19 Consults: 03/29/19 16:49 Consult to Dietitian, Adult Routine Comment: Reason For Exam: weight loss 03/29/19 23:39 Consult to Discharge Planning Routine Comment: Discharge provider: Kike Quick MD Summary Hospital Course Discharge Diagnosis: C difficile colitis acute with hemorrhage and mucosal necrosis. Severe. Ulcerative colitis. Chronic. Untreated. Was begun on medication while hospitalized. Perianal abscess with subacute fistula in ANO. Treated with drainage of abscess and seton placement. Hospital Course: Patient was taken the operating room the day admitted. He had a perianal abscess that was drained and a fistula which was treated with a seton placement. He was also found it to have esther pus and blood draining from his colon. The following morning he underwent a flexible sigmoidoscopy with biopsies. This was consistent with a severe colitis and C diff toxin was found in stool. He was treated for both ulcerative colitis and Clostridium difficile colitis. The latter is suspected to be the cause of his purulence discharge. The ulcerative colitis appears to be and untreated chronic disease process causing him to have chronic blood per rectum. It is most likely source of his low-grade anemia. Status at Discharge Cognitive/behavioral status at discharge: oriented Functional status at discharge: independent ambulation Overall status at discharge: patient is back to baseline (Except for the presence of an anal fistula with seton) Exam Vital Signs (past 8 hours): Oxygen Delivery Method Room Air Oxygen Flow Rate 0 Narrative Exam Narrative: Lungs are clear to auscultation. No rales or rhonchi. Heart regular rate and rhythm without murmur gallop. Abdomen is soft nontender without mass. No hernias. There is mild edema it is anus. Seton is in place. No induration. Objective Labs Result Diagrams: 04/02/19 15:05 03/29/19 14:00 Discharge Plan Discharge Plan Patient Disposition: Home Discharge Med Rec/Prescriptions Prescriptions: New oxycodone 5 mg tablet 5 mg PO Q4H PRN (Reason: pain) Qty: 20 RF: 0 vancomycin 125 mg capsule 125 mg PO QID 10 Days Qty: 40 RF: 0 mesalamine 0.375 gram capsule,extended release 24hr 1.5 gram PO QAM Qty: 120 RF: 2 lidocaine 4 % cream 1 applictn TOP QID PRN (Reason: painful procedure) Qty: 30 RF: 1 Continued oxycodone 5 mg tablet 5 mg PO Q4-6H PRN (Reason: pain) Qty: 14 RF: 0 acetaminophen 500 mg capsule 1,000 mg PO Q6H Qty: 30 RF: 0 Discontinued amoxicillin-pot clavulanate 875-125 mg tablet 1 tab PO Q12H Qty: 10 RF: 0 Follow up/Referrals: Kike Quick MD [Physician] - 1 Week (Please call my office and make an appointment to see me in about a week to 10 days. If you need to reach a doctor on-call please call the office and listen to the entire message. You will be connected with the page fellmongering machine operator the end of the message. Unless she thinks her having a life-threatening problem, please call our office and talk with a doctor before going to the emergency room. We often can save you a trip.) Provider Discharge Instructions Diet: Diet as Tolerated Activity: As tolerated. Do not drive if using narcotics for pain. Skin/Wound/Dressing Care Dressing: Keep a pad between her buttock cheeks to collect any drainage. Shower after bowel movements. Sit in a warm tub of plain water 4 to 6 times a day. You have a small rubber band like loop of material holding open your fistula tract that caused her abscess. Do not pull on it as it will be quite tender. Visit Report/Discharge Packet Instructions: Vancomycin, Oxycodone, Clostridium difficile Infection, DI for Clostridium difficile Infection, Mesalamine (By mouth) Discharges patient from system. Discharge Date/Time: 04/04/19 12:56 Quality VTE Deep Vein Thrombosis/Pulmonary Embolism Present on Admission: No
== END 2019-04-04 12:56 | disposition home or self-care (01) | DRG 226 ==
LOC: ED 13:23 → AC 14:42
PROVIDERS: Surgery; Admitting Provider Specialist; Emergency Provider Emergency Medicine; Family Provider Surgery; Visit Provider Specialist
PROC: 0D9P8ZX Drainage of Rectum, Via Natural or Artificial Opening Endoscopic, Diagnostic (ICD-10-PCS; CPT 45990; principal; 2019-03-29 19:00)
PROC: 0D9P8ZX Drainage of Rectum, Via Natural or Artificial Opening Endoscopic, Diagnostic (ICD-10-PCS; CPT 46040; 2019-03-29 19:00)
PROC: 0DJD8ZZ Inspection of Lower Intestinal Tract, Via Natural or Artificial Opening Endoscopic (ICD-10-PCS; CPT 45378; principal; 2019-03-30 11:45)
DX: K61.2 Anorectal abscess (principal); K64.9 Unspecified hemorrhoids; A04.72 Enterocolitis due to Clostridium difficile, not specified as recurrent; K51.90 Ulcerative colitis, unspecified, without complications; E44.0 Moderate protein-calorie malnutrition; Z68.23 Body mass index [BMI] 23.0-23.9, adult; K60.5 Anorectal fistula; D50.0 Iron deficiency anemia secondary to blood loss (chronic); Z87.891 Personal history of nicotine dependence
CPT/HCPCS: 36415; 45380; 46020; 80048; 85025; 86780; 87070; 87075; 87077; 87205; 87491; 87507; 87591; 96374; 99152; 99283; J0330; J0696; J1100; J1170; J1650; J2060; J2250; J2270; J2405; J2704; J3010; J3370

== ENCOUNTER 2019-05-03 13:52 | Observation (INO) | payer OTHER, MEDICAID, SELFPAY ==
[2019-03-29 16:34] VITALS: BMI 23.1
[2019-05-03] VITALS (20 sets, daily range): BP systolic 96–137; BP diastolic 68–85; PULSE 61–78; RESP 10–20; TEMP 36.5–37.7; O2SAT 95–100; BMI 23.1
[2019-05-03 15:17] LABS: Add Manual Diff / Slide Review NO; Basophils Absolute Auto 100 /uL (0-100); Basophils Percent Auto 0.6 % (0-2); Eosinophils Absolute Auto 100 /uL (0-450); Eosinophils Percent Auto 0.9 % (2-4); Hematocrit 38.5 % (41-53); Hemoglobin 13.2 g/dL (13.5-17.5); Lymphocytes Absolute Auto 1400 /uL (1100-4500); Lymphocytes Percent Auto 13.7 % (25-40); Mean Corpuscular HGB Conc 34.3 % (30-36); Mean Corpuscular Hemoglobin 29.1 PG (26-34); Mean Corpuscular Volume 84.8 fL (80-100); Monocytes Absolute Auto 600 /uL (0-900); Monocytes Percent Auto 5.8 % (3-14); Neutrophils Absolute Auto 7800 /uL (1500-7000); Platelet Count 301 X10^3/uL (150-400); Red Blood Cell Count 4.54 X10^6/uL (4.5-5.9); Red Cell Distribution Width 14.6 % (11.6-14.8); White Blood Cell Count 9.9 X10^3/uL (4.5-11.0)
[2019-05-03 15:24] LABS: BUN Creatinine Ratio 15.6 (6-22); Blood Urea Nitrogen 14 mg/dL (9-20); Calcium 9.3 mg/dL (8.4-10.2); Carbon Dioxide 26 mmol/L (22-32); Chloride 101 mmol/L (98-107); Estimated Glomerular Filt Rate > 60.0 mL/min (>60); Glucose 92 mg/dL (70-100); HEMOLYSIS < 15 (0-50); Potassium 4.1 mmol/L (3.4-5.1); Sodium 138 mmol/L (137-145)
[2019-05-03] MEDS: SODIUM CHLORIDE 0.9% 1,000 ML 100 ML IV (16:32)
--- NOTE | 2019-05-03 16:36 | PM.HP.1 ---
History of Present Illness History of Present Illness Date Patient Seen: 05/03/19 Time Patient Seen: 16:36 Chief complaint: Perianal abscess Narrative: The patient is a gentleman who has developed 2 new pain in his perianal tissues with swelling. His B Myrna exquisitely sensitive. He has an indwelling seton right now and was treated recently for C diff colitis. He is having normal bowel movements and has no abdominal pain. All of his pain is in the perianal area. He has been draining some dark brownish material. Patient History Medical History (Updated 05/03/19 @ 16:38 by Kike Quick MD) Abscess of rectum (Acute) C. difficile colitis (Acute) Irritable bowel syndrome (Acute) Family & Social History Social History: household members other Prior Living Arrangements House Safety & Behavioral: Feels Safe in Current Yes Environment Been Physically Hurt or No Threatened By a Person Suicidal Ideation Description None Suicide Plan Description No Plan Tobacco & Substance use: Smoking Status Never smoker alcohol intake never Substance Use Type marijuana Meds Home Medications and Allergies Home Medications Medication Instructions Recorded Confirmed Type acetaminophen 1,000 mg PO Q6H #30 cap 03/24/19 05/03/19 Rx oxycodone 5 mg tablet 5 mg PO Q4-6H PRN #14 tab 03/25/19 05/03/19 Rx oxycodone 5 mg PO Q4H PRN #20 tab 04/04/19 05/03/19 Rx lidocaine 1 applictn TOP 4-6XD PRN 05/03/19 05/03/19 History mesalamine 1.5 gram PO QID 05/03/19 05/03/19 History Allergies Allergy/AdvReac Type Severity Reaction Status Date / Time latex Allergy Verified 05/03/19 13:08 dairy AdvReac Uncoded 05/03/19 13:08 vanilla AdvReac Uncoded 05/03/19 13:08 Review of Systems Review of Systems Narrative: No breathing issues no cough or cold. No heart problems or chest pain. No black or bloody bowel movements. No seizures or blackouts. Last p.o. intake was 10:00 a.m. last evening. Exam Vital Signs (past 8 hours): - 05/03/19 16:00 Temperature 98.8 F Pulse Rate 66 Respiratory Rate 14 Blood Pressure 125/78 Pulse Oximetry 98 Oxygen Flow Rate 0 Narrative Exam Narrative: Operative no apparent distress. Eyes nonicteric. Lungs clear to auscultation no rales or rhonchi. Heart regular rate and rhythm without murmur gallop. Abdomen is scaphoid soft nontender without mass. Perianal swelling with exquisite tenderness and fluctuance left anterior lateral. Cannot see the seton at this time as patient is too tender to examine. Objective Labs Result Diagrams: 05/03/19 15:04 05/03/19 15:04 Labs: Laboratory Results - last 24 hr 05/03/19 05/03/19 15:04 15:04 WBC 9.9 RBC 4.54 Hgb 13.2 L Hct 38.5 L MCV 84.8 MCH 29.1 MCHC 34.3 RDW 14.6 Plt Count 301 Neut % (Auto) 79.0 H Lymph % (Auto) 13.7 L [place] % (Auto) 5.8 Eos % (Auto) 0.9 L Baso % (Auto) 0.6 Neut # (Auto) 7800 H Lymph # (Auto) 1400 [place] # (Auto) 600 Eos # (Auto) 100 Baso # (Auto) 100 Sodium 138 Potassium 4.1 Chloride 101 Carbon Dioxide 26 BUN 14 Creatinine 0.90 Estimated GFR > 60.0 BUN/Creatinine Ratio 15.6 Glucose 92 Calcium 9.3 Assessment & Plan Assessment & Plan narrative: Recurrent perianal abscess. I would expect the seton to have kept this from happening but the may have an additional tract adjacent to the 1 already present. I have discussed the operation with him. We will taken to the operating room and drain this in deal with the consequences. Quality VTE Deep Vein Thrombosis/Pulmonary Embolism Present on Admission: No
--- NOTE | 2019-05-03 16:43 | PM.PREOP ---
Pre-operative Note Interval Note History & Physical reviewed/Exam performed by Physician: Yes Changes to H&P: No
--- NOTE | 2019-05-03 17:35 | PM.OP.1 ---
Operative Date/Time/Diagnoses Date of procedure: 05/03/19 Time of procedure: 19:14 Pre-op diagnosis: Perianal abscess recurrence Post-op diagnosis: same Procedure & Clinicians Procedure: Anal exam under anesthesia with drainage of abscess and placement of 2 additional setons Same procedure as scheduled: Yes Indications: Perianal abscess Surgeon: Kike Quick Click Yes if Unassisted: Yes Anesthesia Type: General Operative Notes Findings: Abscess on perianal buttock extending to the existing seton. Additionally there was another fistulous tract from the intersphincteric groove to the seton. Abscess located in the left anterior quadrant. Closure Type: not applicable Specimen(s): other (Cultures) Prosthetic devices, grafts, tissues, transplants, or devices: Seton of 2. Tycron Estimated Blood Loss (mL): 15 Blood products transfused: none Procedure in detail: Patient was placed supine on the operating table and underwent general LMA anesthesia. He was placed in lithotomy and prepped and draped in the usual fashion. With compression of a obvious fluctuant left anterior lateral perianal abscess pus drained out of the opening of the existing seton at the intersphincteric groove. I cultured this and then incised on the perianal tissues and drain the abscess. There was an additional area on examination that appeared to be a fistulous tract which easily probed into the same site as the initial seton opening at the intersphincteric groove. There appeared to be very little tissue remaining around that initial seton. I placed at 2nd seton in this additional fistulous tract. There was a great deal of edema in the hemorrhoid in the area. There were no other abnormalities seen. I was very hesitant to definitively do additional treatment because of the patient's history of ulcerative colitis and my concern that we may be dealing with a complication of that. Complications: none Post-operative Condition: stable Disposition: PACU Plan for aftercare: Will refer to GI and colorectal surgery
[2019-05-03] MEDS: LACTATED RINGERS 1,000 ML 42 ML IV ×3 (18:00→22:15)
--- NOTE | 2019-05-03 19:01 | SUR.OPER ---
Lithotomy on padded OR bed, head on pillow, arms secured on padded arm boards at <90 degrees abduction. Legs secured in padded yellow fins stirrups.
--- NOTE | 2019-05-03 19:26 | SUR.PHASEI ---
Report given to SUN Lim. Carina to assume care of pt at this time.
--- NOTE | 2019-05-03 19:27 | SUR.OPER ---
SUIGICAL SITE PACKES WITH FLATS, ABD, AND COVERED WITH POST OP UNDERWEAR
[2019-05-03] MEDS: HYDROMORPHONE 2 MG INJ 0.5 MG IV ×3 (19:39→19:49)
--- NOTE | 2019-05-03 20:08 | SUR.PHASEI ---
Assumed care of pt, pt with nasal airway in and nasal cannula 02, airway out and 02 weaned off. Pt treated for pain to venessa rectal area with dilaudid and ow pain tolerable. Report attempted no RN available TIPPLE TENDER stated she would call Magdalena and have her call me back. Pt w/o nausea, drinking juice. Voided in urinal. dressing to rectal area with serosanguinious drainage on gauze.
--- NOTE | 2019-05-03 20:36 | SUR.PHASEI ---
Magdalena called back, report given, pt transported up via bed and left in stable condition.
[2019-05-03] MEDS: GABAPENTIN 300 MG CAPSULE PO (20:39)
[2019-05-03] MEDS: LACTATED RINGERS 1,000 ML 125 ML IV (20:39)
[2019-05-03] MEDS: MESALAMINE 250 MG CAPSULE.ER 1500 MG PO (20:39)
[2019-05-03] MEDS: KETOROLAC 30 MG/ML VIAL IV (20:39)
--- NOTE | 2019-05-03 23:30 | PC.NURSE ---
summary- Pt went to OR @ 1545, returned @ 2029 with 3 seton drains per rectum r/t fistulas, mesh with ABD pad, serosang drainage, rates pain 1-2/10 rest of shift. 98%RA, LS clear, Bt + PP+ was is now gen diet, but has many dietary restrictions and will let staff know of these, Hx UC and knows triggers and eats accordingly. LFA LR @ 125, SBA to BRP.
[2019-05-04] VITALS (7 sets, daily range): BP systolic 118–120; BP diastolic 75–77; PULSE 66–70; RESP 14–18; TEMP 36.9–37.1; O2SAT 97–100
[2019-05-04] MEDS: KETOROLAC 30 MG/ML VIAL IV (05:56)
[2019-05-04] MEDS: LACTATED RINGERS 1,000 ML 125 ML IV (07:23)
[2019-05-04] MEDS: GABAPENTIN 300 MG CAPSULE PO (08:57)
[2019-05-04] MEDS: MESALAMINE 250 MG CAPSULE.ER 1500 MG PO ×2 (08:57→12:02)
[2019-05-04] MEDS: ENOXAPARIN 40 MG/0.4 ML SYRINGE SUBCUT (08:58)
[2019-05-04] MEDS: OXYCODONE IR 5 MG TABLET PO (08:59)
--- NOTE | 2019-05-04 10:20 | CM.DANOTE ---
Addendum entered by Peace Lopez LPN 05/04/19 15:24: Dr. Quick did see pt later in the day. A check in of the notes shows that he did ok pt for d/c today and with followup at the [facility] clinic. Pt's mother Flavia drove him home after all the d/c paperwork was completed. Original Note: Discharge Planning/Care Management DCP: assessment: case received, EMR reviewed and met with pt and his mother Flavia : cell: [phone]. Introduced self and role. Payer: [place]/Medicaid Admission status: OBS: confirmed by [facility] SUN Chand. PCP: assigned to Dr. Kofi Pandya, has not had a first appt yet (prior PCP in that clinic retired). Pt confirms he does have a cell but does not give out the number as I use is privately, it is not for others to use. Readmit: noted: pt was last here 03/29-04/04/19 and with a d/c to home setting and followup with the [facility] clinic. Pt carries dx of ulcerative colitis. Recent treatment for c-diff and placement of seton as part of treatment plan for perianal abscess. He admitted yesterday afternoon to care of [facility] and Dr. Quick took him to surgery later that evening for drainage of abscess and placement of 2 more setons. Pt today says he is just waiting to talk to the surgeon so that he can find out what his plan going forward will be. Flavia also confirms she is eager to here how long her son will be in the hospital and what the next steps are for him. P: DCP team will be following as POC unfolds to assist with any d/c needs that may arise. CM Discharge Assessment Start: 05/04/19 10:19 Freq: Status: Active Protocol: Document 05/04/19 10:19 ITV (Rec: 05/04/19 10:20 ITV [id number]) Discharge Planning Assessment Advance Directives? No Advance Directives on File No History Provided By Patient,Family Member,Medical Record Prior Living Arrangements House Household Members other Independent with ADL's Yes Is patient alert and oriented? Yes Whiteboard Updated in Patient Room with Yes name and ext. # of Nurse College Review Status In Process
--- NOTE | 2019-05-04 12:54 | PM.DS.1 ---
History of Present Illness History of Present Illness Date Patient Seen: 05/04/19 Time Patient Seen: 12:54 Chief complaint: Perianal abscess Narrative: The patient is a gentleman who has developed 2 new pain in his perianal tissues with swelling. His B Myrna exquisitely sensitive. He has an indwelling seton right now and was treated recently for C diff colitis. He is having normal bowel movements and has no abdominal pain. All of his pain is in the perianal area. He has been draining some dark brownish material. Discharge Providers Provider Date of admission: 05/03/19 13:52 Discharge Date: 05/04/19 Consults: 05/03/19 20:16 Consult to Discharge Planning Routine Comment: Discharge provider: Kike Quick MD Summary Hospital Course Discharge Diagnosis: One perianal abscess Two new fistula in ANO Three ulcerative colitis Hospital Course: The patient was taken the operating room and underwent drainage of the new abscess. It actually connected to the tract with the seton was placed. This was highly unusual. It covered which went to same area the that the seton had drained. Additional seton is were placed to his history of ulcerative colitis and my concern that this may be related to uncontrolled inflammatory bowel disease. Status at Discharge Cognitive/behavioral status at discharge: oriented Functional status at discharge: independent ambulation Overall status at discharge: patient is progressing back to baseline Exam Vital Signs (past 8 hours): - 05/04/19 05:59 05/04/19 07:44 05/04/19 08:19 Temperature 98.5 F 98.5 F Pulse Rate 67 70 Respiratory Rate 16 14 Blood Pressure 120/77 120/77 Pulse Oximetry 100 97 100 05/04/19 11:39 05/04/19 12:23 Temperature 98.7 F Pulse Rate 66 Respiratory Rate 18 Blood Pressure 118/75 Pulse Oximetry 97 98 Oxygen Delivery Method Room Air Oxygen Flow Rate 0 Narrative Exam Narrative: Marked improvement in the edema in the perianal tissues. I removed the packing from the abscess cavity. Objective Labs Result Diagrams: 05/03/19 15:04 05/03/19 15:04 Labs: Laboratory Results - last 24 hr 05/03/19 05/03/19 15:04 15:04 WBC 9.9 RBC 4.54 Hgb 13.2 L Hct 38.5 L MCV 84.8 MCH 29.1 MCHC 34.3 RDW 14.6 Plt Count 301 Neut % (Auto) 79.0 H Lymph % (Auto) 13.7 L [place] % (Auto) 5.8 Eos % (Auto) 0.9 L Baso % (Auto) 0.6 Neut # (Auto) 7800 H Lymph # (Auto) 1400 [place] # (Auto) 600 Eos # (Auto) 100 Baso # (Auto) 100 Sodium 138 Potassium 4.1 Chloride 101 Carbon Dioxide 26 BUN 14 Creatinine 0.90 Estimated GFR > 60.0 BUN/Creatinine Ratio 15.6 Glucose 92 Calcium 9.3 Discharge Plan Discharge Plan Patient Disposition: Home Discharge Med Rec/Prescriptions Prescriptions: New oxycodone 5 mg tablet 5 mg PO Q4H PRN (Reason: painful procedure) Qty: 20 RF: 0 Continued oxycodone 5 mg tablet 5 mg PO Q4-6H PRN (Reason: pain) Qty: 14 RF: 0 acetaminophen 500 mg capsule 1,000 mg PO Q6H Qty: 30 RF: 0 oxycodone 5 mg tablet 5 mg PO Q4H PRN (Reason: pain) Qty: 20 RF: 0 lidocaine 4 % cream 1 applictn TOP 4-6XD PRN (Reason: painful procedure) RF: 0 mesalamine 0.375 gram capsule,extended release 24hr 1.5 gram PO QID RF: 0 Follow up/Referrals: Kike Quick MD [Physician] - 05/11/19 1:00 pm (If you need to reach a doctor after hours please call our office and listen to the entire message. At the end you will be connected with the page automatic vulcanizing lead operator. Try to avoid the use of the emergency room except for life-threatening problems. Your postoperative care is included in her operative care.) Provider Discharge Instructions Diet: Diet as Tolerated Other treatments: Warm Sitz bath or shower 4-6 per day and shower after bowel movements to rinse off. Skin/Wound/Dressing Care Report to your healthcare provider any signs of infection, such as:: increased pain Dressing: You may keep gauze or dressing between the cheeks of her buttock to catch any drainage. I do expect due to have some. Discharge Data Attending Provider: David Brandon Admit Date/Time: 05/03/19 13:52 Quality VTE Deep Vein Thrombosis/Pulmonary Embolism Present on Admission: No
--- NOTE | 2019-05-04 15:13 | PC.NURSE ---
Day shift: Taken to private car by this real estate underwriter. Pt in WC and Pt's mother will be driving him home. Has MD [place]. Has all personal belongings. Paperwork signed and all questions answered.
== END 2019-05-04 15:14 | disposition home or self-care (01) ==
PROVIDERS: Specialist; Admitting Provider Surgery; Family Provider Surgery; Visit Provider Surgery
PROC: (CPT 46040; principal; 2019-05-03 20:00)
DX: K61.4 Intrasphincteric abscess (principal); K51.90 Ulcerative colitis, unspecified, without complications
CPT/HCPCS: 46060; 36415; 80048; 85025; 87070; 87075; 87147; 87205; 94762; G0378; G0379; J1100; J1170; J1650; J1885; J2250; J2405; J2704; J3010

== ENCOUNTER → 2019-10-04 13:42 | Outpatient (CLI) | payer OTHER, MEDICAID, SELFPAY ==
[2019-05-03 14:45] VITALS: BMI 23.1
[2019-10-05 00:35] LABS: Hepatitis B Surf AB Quant <3.1 mIU/mL (Immunity>9.9)
[2019-10-06 15:07] LABS: QuantiFERON Mitogen Value 8.89 IU/mL (.); QuantiFERON Nil Value 0.08 IU/mL (.); QuantiFERON TB Gold Plus Negative (Negative); QuantiFERON TB1 Ag Value 0.43 IU/mL (.); QuantiFERON TB2 Ag Value 0.08 IU/mL (.)
[2019-10-07 15:07] LABS: Hepatitis B Surface Antigen NEGATIVE s/c (NEGATIVE)
[2019-10-07 15:22] LABS: Hep C Virus Ab w/Reflex Quant NEGATIVE s/c (NEGATIVE)
== END ==
PROVIDERS: Family Provider Surgery; Referring Provider Internal Medicine Gastroenterology; Visit Provider Internal Medicine Gastroenterology
DX: K50.914 Crohn's disease, unspecified, with abscess (principal)
CPT/HCPCS: 36415; 86480; 86706; 86803; 87340

== ENCOUNTER → 2024-01-02 08:42 | Outpatient (CLI) | payer OTHER, MEDICAID, SELFPAY ==
[2019-05-03 14:45] VITALS: BMI 23.1
[2024-01-02 10:00] LABS: Influenza A - CEPHEID Flu A NEGATIVE (NEGATIVE); Influenza B - CEPHEID Flu B NEGATIVE (NEGATIVE); Respiratory Syncytial Virus Negative (Negative)
[2024-01-02 10:26] LABS: COVID-19 CEPHEID 4-PLEX PCR POSITIVE (Negative)
== END ==
PROVIDERS: Family Provider Surgery; Visit Provider Nurse Practitioner Family
DX: J02.9 Acute pharyngitis, unspecified (principal)
CPT/HCPCS: 87635; 87400 ×2; 87420; 0241U; 87070

== ENCOUNTER 2024-09-17 08:05 | Emergency (ER) | payer SELFPAY ==
[2019-05-03 14:45] VITALS: BMI 23.1
[2024-09-17 08:24] VITALS: BP 123/72; PULSE 88; RESP 16; TEMP 36.6; O2SAT 97; BMI 10.3
--- NOTE | 2024-09-17 08:30 | ED.ABDPAIN ---
HPI - Abdominal Pain General Chief Complaint: GI Bleed Stated Complaint: inflamation/diarrhea Time Seen by Provider: 09/17/24 08:21 History of Present Illness HPI narrative: Patient 54-year-old male remote history of rectal abscess presenting to day with rectal bleeding. He reports it has been ongoing for the last 5 weeks. He reports every time he goes he has bleeding sometimes the size of the palm of his hand. He is got some abdominal cramping. No dizziness or lightheadedness no fever or chills. He had a colonoscopy about 10 years ago. He was not on any anticoagulation or antiplatelet medications. He has minimal abdominal cramping no nausea or vomiting. He states that took Pepto-Bismol yesterday and today which has a slow down his bleeding. He says just not getting any better. Related Data Previous Rx's Medication Instructions Recorded acetaminophen 500 mg capsule 1,000 mg (2 x 500 mg) PO Q6H #30 03/24/19 caps amoxicillin 875 mg-potassium 1 tab PO BID #20 tabs 09/17/24 clavulanate 125 mg tablet prednisone 10 mg tablet 10 mg PO DAILY #30 tabs 09/17/24 Allergies Allergy/AdvReac Type Severity Reaction Status Date / Time latex Allergy Verified 01/02/24 08:49 dairy AdvReac Uncoded 01/02/24 08:49 vanilla AdvReac Uncoded 01/02/24 08:49 Patient History Medical History (Updated 09/17/24 @ 10:14 by Darcy Elias DO) C. difficile colitis Abscess of rectum Irritable bowel syndrome Social History household members: other Smoking Status: Never smoker alcohol intake: never Smoking Status: Never smoker Exam Initial Vital Signs Initial Vital Signs: Vital Signs Temperature 97.8 F 09/17/24 08:24 Pulse Rate 88 09/17/24 08:24 Respiratory Rate 16 09/17/24 08:24 Blood Pressure 123/72 09/17/24 08:24 Pulse Oximetry 97 09/17/24 08:24 Oxygen Delivery Method Room Air 09/17/24 08:24 GENERAL: Alert 54-year-old male and in no acute distress. HEENT: Head atraumatic,EOMI, pupils reactive, face symmetric, moist mucous membranes CARDIOVASCULAR: Regular rate and rhythm without murmurs, rubs or gallops. RESPIRATORY: Breath sounds equal bilaterally, no wheezes rales or rhonchi. ABDOMEN: Soft, nontender. Normoactive bowel sounds all 4 quadrants. No guarding or rebound. RECTAL: No obvious hemorrhoids,1 streak of bright red blood, guaiac-positive EXTREMITIES: Normal range of motion, no clubbing or edema. Neurovascularly intact NEUROLOGICAL: Alert and oriented x4.Normal gait and speech. SKIN: Warm, dry, no laceration, no petechiae, no rashes or lesions. Course Orders Ordered: ED Orders 09/17/24 08:35 CT angio Abd/Pel GI Bleed Stat 09/17/24 08:36 CBC Auto Diff [Complete Blood Count AUTO DIFF] Stat CMP [Comprehensive Metabolic Panel] Stat Lactate (Lactic Acid) Stat PT [Prothrombin Time INR] Stat PTT Partial Thromboplastin Derrick Stat Type and Screen Stat 09/17/24 08:49 GI Panel (Film Array) Stat Discontinued Medications Methylprednisolone (Methylprednisolone 125 Mg/2 Ml Vial) 125 mg IV NOW ONE Stop: 09/17/24 10:08 Last Admin: 09/17/24 10:12 Dose: 125 mg Documented By: CTS Vital Signs Vital signs: Vital Signs - 8 hr 09/17/24 08:39 09/17/24 09:35 09/17/24 10:00 Blood Pressure 111/72 112/73 Pulse Oximetry 95 MDM - Abdominal Pain Lab Data 09/17/24 08:36 09/17/24 08:36 Labs: Lab Results 09/17/24 09/17/24 Range/Units 08:36 08:49 WBC 9.6 (4.5-11.0) X10^3/uL RBC 5.00 (4.5-5.9) X10^6/uL Hgb 14.6 (13.5-17.5) g/dL Hct 43.3 (41-53) % MCV 86.7 (80-100) fL MCH 29.2 (26-34) PG MCHC 33.7 (30-36) % RDW 13.0 (11.6-14.8) % Plt Count 262 (150-400) X10^3/uL Neut % (Auto) 81.4 H (50-75) % Lymph % (Auto) 8.3 L (25-40) % [place] % (Auto) 8.1 (3-14) % Eos % (Auto) 1.9 L (2-4) % Baso % (Auto) 0.3 (0-2) % Neut # (Auto) 7800 H (3226-8845) /uL Lymph # (Auto) 800 L (4372-8673) /uL [place] # (Auto) 800 (0-900) /uL Eos # (Auto) 200 (0-450) /uL Baso # (Auto) 0 (0-100) /uL PT 13.0 H (9.4-12.5) SECONDS INR 1.1 (0.9-1.3) APTT 35 (25.1-36.5) SECONDS Sodium 135 L (137-145) mmol/L Potassium 4.0 (3.4-5.1) mmol/L Chloride 100 (98-107) mmol/L Carbon Dioxide 24 (22-32) mmol/L BUN 12 (9-20) mg/dL Creatinine 1.14 (0.66-1.25) mg/dL Estimated GFR > 60 (>60) mL/min BUN/Creatinine Ratio 10.5 (6-22) Glucose 100 (70-100) mg/dL Lactate 0.8 (0.7-2.1) mmol/L Calcium 8.7 (8.4-10.2) mg/dL Total Bilirubin 0.6 (0.2-1.3) mg/dL AST 20 (17-59) IU/L ALT 14 (<50) IU/L Alkaline Phosphatase 71 (38-126) U/L Total Protein 7.4 (6.3-8.2) g/dL Albumin 4.0 (3.5-5.0) g/dL Globulin 3.4 (1.7-4.1) g/dL Albumin/Globulin Ratio 1.2 (1.0-2.8) Stl C. cayetanensis PCR Not detected (Not Detect) Stool Rotavirus (PCR) Not detected (Not Detect) Stool Adenovirus (PCR) Not detected (Not Detect) Stool Astrovirus (PCR) Not detected (Not Detect) Stool Cryptosporidium PCR Not detected (Not Detect) Stl E.coli Shiga Tox PCR Not detected (Not Detect) St Sh/Enteroin Ecoli PCR Not detected (Not Detect) Stl Enterotoxigenic E PCR Not detected (Not Detect) Stool EPEC (PCR) Not detected (Not Detect) Stl E. histolytica PCR Not detected (Not Detect) Stool Giardia Lamblia PCR Not detected (Not Detect) Stool Sapovirus (PCR) Not detected (Not Detect) Stl P. shigelloides PCR Not detected (Not Detect) St Y.enterocolitica PCR Not detected (Not Detect) Stool Vibrio (PCR) Not detected (Not Detect) Stl Vibrio cholerae PCR Not detected (Not Detect) Stl Enteroaggr Ecoli PCR Not detected (Not Detect) Stl Norovirus GI/GII PCR Not detected (Not Detect) Campylobacter (PCR) Not detected (Not Detect) C. difficile Tox (PCR) Not detected (Not Detect) Salmonella (PCR) Not detected (Not Detect) Blood Type B Positive Antibody Screen Negative Imaging Data CT scan - abdomen/pelvis: Radiologist's Impression: PROCEDURE: CT ANGIO ABD/PEL GI BLEED INDICATIONS: GI Bleed TECHNIQUE: After the administration of intravenous contrast, 2.5 mm thick sections acquired from the diaphragm to the symphysis. 10 mm maximum-intensity projection (MIP) reformats were then acquired. For radiation dose reduction, the following was used: automated exposure control. COMPARISON: None. FINDINGS: Image Quality: Diagnostic. Abdominal aorta: No aortic aneurysm or evidence of acute aortic syndrome. Mesenteric arteries: Patent without hemodynamically significant stenosis. Renal arteries: Patent without hemodynamically significant stenosis. OTHER: Lower Chest: No significant findings. Liver: No solid mass. Gallbladder: No radiopaque gallstones or wall thickening. Biliary ducts: No biliary dilation. Pancreas: No ductal dilation. Spleen: Size is within normal limits. Adrenal Glands: No adrenal nodules. Kidneys and Ureters: No hydronephrosis. No solid mass. No complex renal cystic lesion which requires follow up. Stomach and Bowel: Large terminal ileal stool ball. Reference coronal image 45 of series 9. There is relatively impressive distal colitis involving the descending colon through the rectum. There is wall thickening and edema. There is some inflammatory change in the adjacent fat. No acute hemorrhage. Peritoneum: No abnormal intraperitoneal fluid. No free air. Ventral Wall: No hernia. Abdominal Nodes: No retroperitoneal or mesenteric adenopathy by size criteria. Vessels: Aorta and inferior vena cava are normal in size. PELVIS: Pelvic Organs: Unremarkable. Bladder: Unremarkable. Pelvic Nodes: No enlarged lymph nodes. Miscellaneous: No inguinal hernias are seen. Bones: No aggressive osseous abnormality. Bilateral L5 pars defects with anterolisthesis of L5 on S1 and bilateral severe foraminal narrowing at L5-S1 with bilateral foraminal L5 nerve root impingement. IMPRESSION: 1. Impressive distal colitis involving the descending colon through the rectum, with wall thickening and edema and inflammatory change in the adjacent fat. Consider infectious versus inflammatory versus ischemic etiologies. Ischemia is unlikely based on involvement of the entire length of the rectum. 2. No acute hemorrhage. 3. Bilateral L5 pars defects with anterolisthesis of L5 on S1 and bilateral severe foraminal narrowing at L5-S1 with bilateral foraminal L5 nerve root impingement. Dictated by: Balta Stokes M.D. on 09/17/2024 at 9:18 [facility] Narrative Medical decision making narrative: MDM CC: Rectal bleeding Complicating co-morbidities: Ultimately patient admits to having ulcerative colitis and Crohn's disease not followed by GI or PCP not currently on any kind of medication Data collected from: Patient Medical records reviewed: Records from 2019 for rectal abscess and fistula noted Differential considered: Ulcerative colitis Crohn's disease flare mesenteric ischemia colitis diverticulitis rectal bleeding hemorrhoids Exam documented above, pertinent findings include: Patient is well-appearing abdomen is soft guaiac positive no gross blood or hematochezia on rectal exam Lab Test results independently reviewed as above. Pertinent findings: WBC 9.6 hemoglobin 14.6 hematocrit 43.3 platelets 262 CMP sodium 135 potassium 4.0 chloride 100 carbon dioxide 24 BUN 12 creatinine 1.14 Bilirubin liver enzymes within normal limits GI panel pending Imaging studies independently reviewed: CT abdomen shows impressive distal colitis involving descending colon through rectum and wall thickening edema inflammatory change in adjacent at infectious versus inflammatory Treatments: Solu-Medrol Re-evaluations: Patient is not having any further episodes of GI bleeding in the ED. abdomen is soft nontender vitals are stable Discussion: 54-year-old male presenting to day with rectal bleeding ongoing for the last 5 weeks. He does have history of ulcerative colitis that has turned into Crohn's disease. Records report that he did have a fistula back in 2019. He was not followed by GI or really your primary care provider but he does have a PCP. Blood work has been reviewed here overall reassuring no anemia present. Are stable. CT does confirm significant inflammatory changes the distal colon I suspect patient is having an ulcerative colitis flare. He was given a dose of Solu-Medrol here in the ED, we will also go ahead and start him on some antibiotics, along with some prednisone. He was having very minimal pain here. Discharge Plan Departure Patient Disposition: Home Clinical Impression: Ulcerative colitis Instructions: DI for Ulcerative Colitis Activity Restrictions/Additional Instructions: *You have been diagnosed with ulcerative colitis/Crohn's disease flare *What to do: At this time you think this is your inflammatory bowel disease acting up. We will start you on some steroids and antibiotics. It is imperative that you get into GI you will likely need further medication to help control your disease. He will also likely need a referral from your primary care provider *Continue to take medications as directed Prednisone 40 mg once a day for 3 days 30 mg once a day for 3 days 20 mg once a day for 3 days 10 mg once a day for 3 days Augmentin 875 mg twice a day for 7 days Tylenol 1000 mg every 6 hours if needed for [id number] *Follow up with your primary care provider in 2-3 days or call [phone] *Return to ER if you should have increasing pain dizziness lightheadedness increase in rectal bleeding such as or any new, worsening or concerning symptoms Prescriptions: New prednisone 10 mg tablet 10 mg PO DAILY Qty: 30 0RF Rx Instructions: day 1-3: 40 mg once a day day 4-6: 30 mg once a day day 7-9: 20 mg once a day day 10-12: 10 mg once a day amoxicillin-pot clavulanate 875-125 mg tablet 1 tab PO BID Qty: 20 0RF No Action acetaminophen 500 mg capsule 1,000 mg PO Q6H Qty: 30 0RF Stand Alone Forms: Patient Portal/API/Survey
[2024-09-17 08:31] VITALS: PULSE 79; O2SAT 94
--- NOTE | 2024-09-17 08:35 | DI.CT.S_ITS ---
PROCEDURE: CT ANGIO ABD/PEL GI BLEED INDICATIONS: GI Bleed TECHNIQUE: After the administration of intravenous contrast, 2.5 mm thick sections acquired from the diaphragm to the symphysis. 10 mm maximum-intensity projection (MIP) reformats were then acquired. For radiation dose reduction, the following was used: automated exposure control. COMPARISON: None. FINDINGS: Image Quality: Diagnostic. Abdominal aorta: No aortic aneurysm or evidence of acute aortic syndrome. Mesenteric arteries: Patent without hemodynamically significant stenosis. Renal arteries: Patent without hemodynamically significant stenosis. OTHER: Lower Chest: No significant findings. Liver: No solid mass. Gallbladder: No radiopaque gallstones or wall thickening. Biliary ducts: No biliary dilation. Pancreas: No ductal dilation. Spleen: Size is within normal limits. Adrenal Glands: No adrenal nodules. Kidneys and Ureters: No hydronephrosis. No solid mass. No complex renal cystic lesion which requires follow up. Stomach and Bowel: Large terminal ileal stool ball. Reference coronal image 45 of series 9. There is relatively impressive distal colitis involving the descending colon through the rectum. There is wall thickening and edema. There is some inflammatory change in the adjacent fat. No acute hemorrhage. Peritoneum: No abnormal intraperitoneal fluid. No free air. Ventral Wall: No hernia. Abdominal Nodes: No retroperitoneal or mesenteric adenopathy by size criteria. Vessels: Aorta and inferior vena cava are normal in size. PELVIS: Pelvic Organs: Unremarkable. Bladder: Unremarkable. Pelvic Nodes: No enlarged lymph nodes. Miscellaneous: No inguinal hernias are seen. Bones: No aggressive osseous abnormality. Bilateral L5 pars defects with anterolisthesis of L5 on S1 and bilateral severe foraminal narrowing at L5-S1 with bilateral foraminal L5 nerve root impingement. IMPRESSION: 1. Impressive distal colitis involving the descending colon through the rectum, with wall thickening and edema and inflammatory change in the adjacent fat. Consider infectious versus inflammatory versus ischemic etiologies. Ischemia is unlikely based on involvement of the entire length of the rectum. 2. No acute hemorrhage. 3. Bilateral L5 pars defects with anterolisthesis of L5 on S1 and bilateral severe foraminal narrowing at L5-S1 with bilateral foraminal L5 nerve root impingement. Dictated by: Balta Stokes M.D. on 09/17/2024 at 9:18 Approved by: Balta Stokes M.D. on 09/17/2024 at 9:27
[2024-09-17 08:39] VITALS: O2SAT 95
--- NOTE | 2024-09-17 08:40 | PC.NURSE ---
bedside for MD pedersen for rectal exam. +guiac for blood.
[2024-09-17 08:45] LABS: Add Manual Diff / Slide Review NO; Basophils Absolute Auto 0 /uL (0-100); Basophils Percent Auto 0.3 % (0-2); Eosinophils Absolute Auto 200 /uL (0-450); Eosinophils Percent Auto 1.9 % (2-4); Hematocrit 43.3 % (41-53); Hemoglobin 14.6 g/dL (13.5-17.5); Lymphocytes Absolute Auto 800 /uL (1100-4500); Lymphocytes Percent Auto 8.3 % (25-40); Mean Corpuscular HGB Conc 33.7 % (30-36); Mean Corpuscular Hemoglobin 29.2 PG (26-34); Mean Corpuscular Volume 86.7 fL (80-100); Monocytes Absolute Auto 800 /uL (0-900); Monocytes Percent Auto 8.1 % (3-14); Neutrophils Absolute Auto 7800 /uL (1500-7000); Neutrophils Percent Auto 81.4 % (50-75); Platelet Count 262 X10^3/uL (150-400); White Blood Cell Count 9.6 X10^3/uL (4.5-11.0)
[2024-09-17 08:52] LABS: INR 1.1 (0.9-1.3)
[2024-09-17 08:55] LABS: PTT Partial Thromboplastin Tim 35 SECONDS (25.1-36.5)
[2024-09-17 09:02] LABS: Alanine Aminotransferase 14 IU/L (<50); Albumin Globulin Ratio 1.2 (1.0-2.8); Alkaline Phosphatase 71 U/L (38-126); Aspartate Aminotransferase 20 IU/L (17-59); BUN Creatinine Ratio 10.5 (6-22); Bilirubin Total 0.6 mg/dL (0.2-1.3); Blood Urea Nitrogen 12 mg/dL (9-20); Calcium 8.7 mg/dL (8.4-10.2); Carbon Dioxide 24 mmol/L (22-32); Chloride 100 mmol/L (98-107); Estimated Glomerular Filt Rate > 60 mL/min (>60); Globulin 3.4 g/dL (1.7-4.1); Glucose 100 mg/dL (70-100); HEMOLYSIS < 15 (0-50); Lactate (Lactic Acid) 0.8 mmol/L (0.7-2.1); Sodium 135 mmol/L (137-145); Total Protein 7.4 g/dL (6.3-8.2)
[2024-09-17 09:35] VITALS: BP 111/72
[2024-09-17 10:00] VITALS: BP 112/73
[2024-09-17] MEDS: methylPREDNISolone 125 MG/2 ML VIAL IV (10:12)
[2024-09-17 10:13] LABS: Adenovirus F 40/41 Not Detected (Not Detect); Astrovirus Not Detected (Not Detect); Campylobacter Not Detected (Not Detect); Clostridium difficile toxin AB Not Detected (Not Detect); Cryptosporidium Not Detected (Not Detect); Cyclospora cayetanensis Not Detected (Not Detect); Entamoeba histolytica Not Detected (Not Detect); Enteroaggregative E.coli Not Detected (Not Detect); Enteropathogenic E.coli Not Detected (Not Detect); Enterotoxigenic E.coli It/st Not Detected (Not Detect); Giardia lamblia Not Detected (Not Detect); Norovirus GI/GII Not Detected (Not Detect); Plesiomonsa shigelloides Not Detected (Not Detect); Rotavirus A Not Detected (Not Detect); Salmonella Not Detected (Not Detect); Sapovirus Not Detected (Not Detect); Shiga-like toxin-prod E.coli Not Detected (Not Detect); Shigella/Enteroinvasive E.coli Not Detected (Not Detect); Vibrio Not Detected (Not Detect); Vibrio cholerae Not Detected (Not Detect); Yersinia enterocolitica Not Detected (Not Detect)
== END 2024-09-17 10:20 | disposition home or self-care (01) ==
PROVIDERS: Emergency Provider Emergency Medicine
DX: K51.90 Ulcerative colitis, unspecified, without complications (principal)
CPT/HCPCS: 36415; 74174; 80053; 83605; 85025; 85610; 85730; 86850; 86900; 86901; 87507; 96374; 99284; J2919; Q9967

== ENCOUNTER 2024-09-20 21:16 | Inpatient (IN) | payer SELFPAY ==
[2019-05-03 14:45] VITALS: BMI 23.1
[2024-09-20 21:23] VITALS: BP 125/97; PULSE 94; RESP 22; TEMP 37.1; O2SAT 94; BMI 21.8
[2024-09-20] MEDS: ONDANSETRON 4 MG/2 ML INJ IV (21:36)
[2024-09-20 21:45] LABS: Add Manual Diff / Slide Review NO; Basophils Absolute Auto 0 /uL (0-100); Basophils Percent Auto 0.4 % (0-2); Eosinophils Absolute Auto 0 /uL (0-450); Hematocrit 43.4 % (41-53); Hemoglobin 14.7 g/dL (13.5-17.5); Lymphocytes Absolute Auto 800 /uL (1100-4500); Lymphocytes Percent Auto 7.8 % (25-40); Mean Corpuscular HGB Conc 33.8 % (30-36); Mean Corpuscular Hemoglobin 28.9 PG (26-34); Mean Corpuscular Volume 85.5 fL (80-100); Monocytes Absolute Auto 1100 /uL (0-900); Monocytes Percent Auto 10.7 % (3-14); Neutrophils Absolute Auto 8300 /uL (1500-7000); Neutrophils Percent Auto 81.1 % (50-75); Platelet Count 344 X10^3/uL (150-400); Red Blood Cell Count 5.07 X10^6/uL (4.5-5.9); Red Cell Distribution Width 13.4 % (11.6-14.8); White Blood Cell Count 10.3 X10^3/uL (4.5-11.0)
[2024-09-20 21:54] LABS: Alanine Aminotransferase 23 IU/L (<50); Albumin 3.8 g/dL (3.5-5.0); Albumin Globulin Ratio 1.2 (1.0-2.8); Alkaline Phosphatase 63 U/L (38-126); Aspartate Aminotransferase 23 IU/L (17-59); BUN Creatinine Ratio 10.9 (6-22); Bilirubin Total 0.5 mg/dL (0.2-1.3); Blood Urea Nitrogen 15 mg/dL (9-20); Calcium 8.7 mg/dL (8.4-10.2); Carbon Dioxide 26 mmol/L (22-32); Chloride 99 mmol/L (98-107); Estimated Glomerular Filt Rate > 60 mL/min (>60); Globulin 3.3 g/dL (1.7-4.1); Glucose 121 mg/dL (70-100); HEMOLYSIS < 15 (0-50); Lipase 65 U/L (23-300); Sodium 134 mmol/L (137-145); Total Protein 7.1 g/dL (6.3-8.2)
[2024-09-20 23:31] VITALS: BP 127/72
[2024-09-20 23:32] VITALS: PULSE 89; O2SAT 98
[2024-09-21] VITALS (14 sets, daily range): BP systolic 119–146; BP diastolic 68–85; PULSE 65–86; RESP 17–19; TEMP 36.3–36.6; O2SAT 94–100; BMI 25.4
--- NOTE | 2024-09-21 00:05 | ED_ITS ---
HPI - Abdominal Pain General Chief Complaint: Abdominal Pain Stated Complaint: lower abd pain, nausea Time Seen by Provider: 09/21/24 00:05 Source: patient Mode of arrival: Ambulatory History of Present Illness HPI narrative: Patient is a 54-year-old male history of ulcerative colitis ongoing rectal bleeding increasing pain. He was seen evaluated by myself a few days ago diagnosed with an ulcerative colitis flare. He was CT which showed pretty significant inflammation in his distal colon. He reports he has not really able to eat or drink. He was discharged home on prednisone says it has not really helping. He had a GI panel done a couple days ago she was negative. He feels a little nauseous now as well. No fever or chills. He was generally not doing well Related Data Previous Rx's Medication Instructions Recorded acetaminophen 500 mg capsule 1,000 mg (2 x 500 mg) PO Q6H #30 03/24/19 caps amoxicillin 875 mg-potassium 1 tab PO BID #20 tabs 09/17/24 clavulanate 125 mg tablet prednisone 10 mg tablet 10 mg PO DAILY #30 tabs 09/17/24 Allergies Allergy/AdvReac Type Severity Reaction Status Date / Time latex Allergy Verified 01/02/24 08:49 dairy AdvReac Uncoded 01/02/24 08:49 vanilla AdvReac Uncoded 01/02/24 08:49 Patient History Medical History (Updated 09/21/24 @ 03:51 by Darcy Elias DO) C. difficile colitis Abscess of rectum Irritable bowel syndrome Social History household members: other Smoking Status: Never smoker alcohol intake: never Smoking Status: Never smoker Alcohol type: hard liquor Exam Initial Vital Signs Initial Vital Signs: Vital Signs Temperature 98.8 F 09/20/24 21:23 Pulse Rate 94 H 09/20/24 21:23 Respiratory Rate 22 09/20/24 21:23 Blood Pressure 125/97 H 09/20/24 21:23 Pulse Oximetry 94 09/20/24 21:23 Oxygen Delivery Method Room Air 09/20/24 21:23 GENERAL: Alert well-appearing 54-year-old male and in [no acute] distress. HEENT: Head atraumatic,EOMI, pupils reactive, face symmetric, [moist] mucous membranes CARDIOVASCULAR: Regular rate and rhythm without murmurs, rubs or gallops. RESPIRATORY: Breath sounds equal bilaterally, no wheezes rales or rhonchi. ABDOMEN: Soft, diffusely tender noticed significant distention no guarding or rebound EXTREMITIES: Normal range of motion, no clubbing or edema. Neurovascularly intact NEUROLOGICAL: Alert and oriented x4.Normal gait and speech. Cranial nerves II through XII grossly intact. SKIN: Warm, dry, no laceration, no petechiae, no rashes or lesions. Course Orders Ordered: ED Orders 09/20/24 21:33 EKG-12 Lead Stat 09/20/24 21:35 Complete Blood Count AUTO DIFF Stat Comprehensive Metabolic Panel Stat Lipase Stat 09/21/24 00:16 CT abdomen pelvis w con Stat 09/21/24 02:30 Urine Culture Stat Urine Microscopic Stat Hydromorphone HCl (Hydromorphone 0.5 Mg Inj) 0.5 mg IV Q2H PRN PRN Reason: Pain, Severe (7-10) Lactated Ringer's (Lactated Ringers) 1,000 mls @ 100 mls/hr IV CONT BECKI Naloxone HCl (Naloxone 0.4 Mg/Ml Vial) 0.2 mg IV Q2MIN PRN PRN Reason: Opiate Reversal Ondansetron HCl (Ondansetron 4 Mg/2 Ml Inj) 4 mg IV NOW PRN PRN Reason: Nausea And Vomiting Last Admin: 09/20/24 21:36 Dose: 4 mg Documented By: Ondansetron HCl (Ondansetron 4 Mg Odt) 4 mg PO NOW PRN PRN Reason: Nausea And Vomiting Ondansetron HCl (Ondansetron 4 Mg/2 Ml Inj) 4 mg IV Q4HR PRN PRN Reason: nausea Discontinued Medications Hydromorphone HCl (Hydromorphone 0.5 Mg Inj) 0.5 mg IV NOW ONE Stop: 09/21/24 00:17 Last Admin: 09/21/24 00:36 Dose: 0.5 mg Documented By: Hydromorphone HCl (Hydromorphone 0.5 Mg Inj) 0.5 mg IV NOW ONE Stop: 09/21/24 02:31 Last Admin: 09/21/24 02:55 Dose: 0.5 mg Documented By: Sodium Chloride (Normal Saline 0.9%) 1,000 mls @ 1,000 mls/hr IV BOLUS ONE Stop: 09/21/24 01:15 Last Infusion: 09/21/24 01:21 Dose: Infused Documented By: Admin: 09/21/24 00:30 Dose: 1,000 mls/hr Documented By: Methylprednisolone (Methylprednisolone 125 Mg/2 Ml Vial) 125 mg IV NOW ONE Stop: 09/21/24 00:17 Last Admin: 09/21/24 00:35 Dose: 125 mg Documented By: Pantoprazole Sodium (Pantoprazole 40 Mg Vial) 40 mg IV NOW ONE Stop: 09/21/24 03:55 Vital Signs Vital signs: Vital Signs - 8 hr 09/20/24 21:23 09/20/24 23:31 09/20/24 23:32 Temperature 98.8 F Pulse Rate 94 H 89 Respiratory Rate 22 Blood Pressure 125/97 H 127/72 Pulse Oximetry 94 98 Oxygen Delivery Method Room Air 09/21/24 00:00 09/21/24 00:36 09/21/24 01:00 Temperature Pulse Rate 84 86 79 Respiratory Rate Blood Pressure Pulse Oximetry 95 99 95 Oxygen Delivery Method 09/21/24 01:30 09/21/24 02:00 09/21/24 02:30 Temperature Pulse Rate 80 78 77 Respiratory Rate Blood Pressure Pulse Oximetry 95 96 96 Oxygen Delivery Method 09/21/24 02:54 09/21/24 02:54 09/21/24 03:00 Temperature Pulse Rate 82 69 Respiratory Rate Blood Pressure 146/77 H Pulse Oximetry 100 95 Oxygen Delivery Method MDM - Abdominal Pain Lab Data 09/20/24 21:35 09/20/24 21:35 Labs: Lab Results 09/20/24 09/21/24 Range/Units 21:35 02:30 WBC 10.3 (4.5-11.0) X10^3/uL RBC 5.07 (4.5-5.9) X10^6/uL Hgb 14.7 (13.5-17.5) g/dL Hct 43.4 (41-53) % MCV 85.5 (80-100) fL MCH 28.9 (26-34) PG MCHC 33.8 (30-36) % RDW 13.4 (11.6-14.8) % Plt Count 344 (150-400) X10^3/uL Neut % (Auto) 81.1 H (50-75) % Lymph % (Auto) 7.8 L (25-40) % [place] % (Auto) 10.7 (3-14) % Eos % (Auto) 0.0 L (2-4) % Baso % (Auto) 0.4 (0-2) % Neut # (Auto) 8300 H (6271-1048) /uL Lymph # (Auto) 800 L (9164-8824) /uL [place] # (Auto) 1100 H (0-900) /uL Eos # (Auto) 0 (0-450) /uL Baso # (Auto) 0 (0-100) /uL Sodium 134 L (137-145) mmol/L Potassium 4.0 (3.4-5.1) mmol/L Chloride 99 (98-107) mmol/L Carbon Dioxide 26 (22-32) mmol/L BUN 15 (9-20) mg/dL Creatinine 1.37 H (0.66-1.25) mg/dL Estimated GFR > 60 (>60) mL/min BUN/Creatinine Ratio 10.9 (6-22) Glucose 121 H (70-100) mg/dL Calcium 8.7 (8.4-10.2) mg/dL Total Bilirubin 0.5 (0.2-1.3) mg/dL AST 23 (17-59) IU/L ALT 23 (<50) IU/L Alkaline Phosphatase 63 (38-126) U/L Total Protein 7.1 (6.3-8.2) g/dL Albumin 3.8 (3.5-5.0) g/dL Globulin 3.3 (1.7-4.1) g/dL Albumin/Globulin Ratio 1.2 (1.0-2.8) Lipase 65 (23-300) U/L Urine RBC None seen (0-5/HPF) Urine WBC None seen (0-5/HPF) Ur Squamous Epith Cells None seen (0-5/HPF) Urine Bacteria None seen (None) Ur Culture Indicated? Cult not indicated Vol Urine Centrifuged 10ml (spun) Point of care testing: Urine Dip Bedside Urine Glucose Negative Bedside Urine Bilirubin - Negative Bedside Urine Ketone + 15 Urine Specific [place] 1.010 Bedside Urine Occult Blood - Negative Bedside Urine pH 6.0 Bedside Urine Protein +/- 15 Bedside Urine Urobilinogen - Negative Bedside Urine Nitrite - Negative Bedside Urine Leukocytes - Negative Esterase Imaging Data CT scan - abdomen/pelvis: Radiologist's Impression: PROCEDURE: CT ABDOMEN PELVIS W CON INDICATIONS: severe ab pain with ulcerative colitis and bloody stool TECHNIQUE: After the administration of intravenous contrast, axial sections acquired from the lung bases to the pubic symphysis. Coronal and sagittal reformats were performed. For radiation dose reduction, the following was used: automated exposure control, adjustment of mA and/or kV according to patient size. COMPARISON: [facility], CT, CT ABDOMEN PELVIS W CON, 03/24/2019, 19:42. FINDINGS: Image quality: Diagnostic. Lower Chest: No significant findings. ABDOMEN: Liver: No solid mass. Gallbladder: No radiopaque gallstones or wall thickening. Biliary ducts: No biliary dilation. Pancreas: No ductal dilation. Spleen: Size is within normal limits. Adrenal Glands: No adrenal nodules. Kidneys and Ureters: No hydronephrosis. No solid mass. No complex renal cystic lesion which requires follow up. Stomach and Bowel: Normal colonic caliber, without significant wall thickening. Redemonstration of distal colitis involving the descending colon and rectum with wall thickening and edema. As before, there are adjacent fat stranding. Peritoneum: No abnormal intraperitoneal fluid. No free air. Ventral Wall: No significant ventral hernia. Abdominal Nodes: No retroperitoneal or mesenteric adenopathy by size criteria. Vessels: Aorta and inferior vena cava are normal in size. PELVIS: Pelvic Organs: Unremarkable. Bladder: No bladder wall thickening, accounting for underdistention. Pelvic Nodes: No enlarged lymph nodes. Miscellaneous: No inguinal hernias are seen. Bones: No aggressive osseous abnormality. No acute fracture. Bilateral L5 pars defects with trace anterolisthesis of L5 on S1. IMPRESSION: Compared to prior CT 09/17/2024, no significant change in colitis involving the descending colon through the rectum with wall thickening, submucosal edema and adjacent fat stranding. Approved by: June Barnes M.D.,Ph.D. on 09/21/2024 at 2:00 [facility] Narrative Medical decision making narrative: MDM CC: Abdominal pain bloody stool Complicating co-morbidities: Untreated ulcerative colitis/Crohn's disease Data collected from: Patient Medical records reviewed: Recent ED visits Differential considered: Inflammatory bowel disease versus colitis Exam documented above, pertinent findings include: 54-year-old male does have tender abdomen Lab Test results independently reviewed as above. Pertinent findings: No leukocytosis no anemia Found to have REA creatinine 1.37 previously 1.14 Electrolytes through stable Imaging studies independently reviewed: CT abdomen pelvis does not show any changes from CT a few days ago but there is severe inflammation distal colitis descending colon through the rectum thickening and edema with inflammatory change Consultations: Dr. Cyr accepts Treatments: IV fluids Solu-Medrol Dilaudid Re-evaluations: Patient did get relief with Dilaudid. However he went to the bathroom had a bowel movement and pain shot up again in his in quite severe pain. Given another dose of Dilaudid which does help. Discussion: Patient has untreated ulcerative and Crohn's disease. He has been having bloody stools for over a month. Attempted prednisone and outpatient treatment with close GI follow-up however he is not eating or drinking due to pain. Today he has a mild REA. He was discharged on oral prednisone as well but he does not feel like he has any improvement. This time it seems reasonable to admit for pain control IV steroids and IV fluids Discharge Plan Departure Patient Disposition: Admitted as Observation Clinical Impression: Ulcerative colitis Admit Date/Time: 09/21/24 03:23 Admit Provider: Cole Strong
--- NOTE | 2024-09-21 00:16 | DI.CT.S_ITS ---
PROCEDURE: CT ABDOMEN PELVIS W CON INDICATIONS: severe ab pain with ulcerative colitis and bloody stool TECHNIQUE: After the administration of intravenous contrast, axial sections acquired from the lung bases to the pubic symphysis. Coronal and sagittal reformats were performed. For radiation dose reduction, the following was used: automated exposure control, adjustment of mA and/or kV according to patient size. COMPARISON: [facility], CT, CT ABDOMEN PELVIS W CON, 03/24/2019, 19:42. FINDINGS: Image quality: Diagnostic. Lower Chest: No significant findings. ABDOMEN: Liver: No solid mass. Gallbladder: No radiopaque gallstones or wall thickening. Biliary ducts: No biliary dilation. Pancreas: No ductal dilation. Spleen: Size is within normal limits. Adrenal Glands: No adrenal nodules. Kidneys and Ureters: No hydronephrosis. No solid mass. No complex renal cystic lesion which requires follow up. Stomach and Bowel: Normal colonic caliber, without significant wall thickening. Redemonstration of distal colitis involving the descending colon and rectum with wall thickening and edema. As before, there are adjacent fat stranding. Peritoneum: No abnormal intraperitoneal fluid. No free air. Ventral Wall: No significant ventral hernia. Abdominal Nodes: No retroperitoneal or mesenteric adenopathy by size criteria. Vessels: Aorta and inferior vena cava are normal in size. PELVIS: Pelvic Organs: Unremarkable. Bladder: No bladder wall thickening, accounting for underdistention. Pelvic Nodes: No enlarged lymph nodes. Miscellaneous: No inguinal hernias are seen. Bones: No aggressive osseous abnormality. No acute fracture. Bilateral L5 pars defects with trace anterolisthesis of L5 on S1. IMPRESSION: Compared to prior CT 09/17/2024, no significant change in colitis involving the descending colon through the rectum with wall thickening, submucosal edema and adjacent fat stranding. Approved by: June Barnes M.D.,Ph.D. on 09/21/2024 at 2:00
[2024-09-21] MEDS: SODIUM CHLORIDE 0.9% 1,000 ML 1000 ML IV (00:30)
[2024-09-21] MEDS: methylPREDNISolone 125 MG/2 ML VIAL IV (00:35)
[2024-09-21] MEDS: HYDROMORPHONE 0.5 MG INJ IV ×3 (00:36→04:47)
--- NOTE | 2024-09-21 02:16 | PC.NURSE ---
Patient ststes he is not able to urinate at this time
[2024-09-21 03:04] LABS: Bacteria Urine None Seen; Culture Indicated Urine Cult Not Indicated; RBC Urine None Seen (0-5/HPF); Squamous Epithelial Cell Urine None Seen (0-5/HPF); Urine Volume 10mL (spun); WBC Urine None Seen (0-5/HPF)
[2024-09-21] MEDS: LACTATED RINGERS 1,000 ML 100 ML IV (04:47)
[2024-09-21] MEDS: PANTOPRAZOLE 40 MG VIAL IV (04:47)
[2024-09-21] MEDS: ONDANSETRON 4 MG/2 ML INJ IV ×2 (05:04→21:34)
--- NOTE | 2024-09-21 05:59 | PM.HP.1 ---
History of Present Illness History of Present Illness Date Patient Seen: 09/21/24 Time Patient Seen: 06:00 Chief complaint: lower abd pain, nausea Narrative: 54 y/o with PMH of ulcerative colitis diagnosed 10 years ago, inactive in last few years on no treatment, had a flare last week, seen in the ED and discharged home on prednisone taper. He continued to be nauseated, was unable to eat or drink, had loose BMs with small amount of blood and came back tonight. CT same as previous study, extensive colitis. Placed in observation for IVFs, IV steroid, IV pain management PFSH Medical History (Updated 09/21/24 @ 06:12 by Cole Cyr MD) C. difficile colitis Abscess of rectum Irritable bowel syndrome Social History household members: children Smoking Status: Former smoker alcohol intake: current Meds Home Medications and Allergies Home Medications Medication Instructions Recorded Confirmed Type acetaminophen 500 mg capsule 1,000 mg (2 x 500 mg) PO Q6H #30 03/24/19 01/02/24 Rx caps amoxicillin 875 mg-potassium 1 tab PO BID #20 tabs 09/17/24 Rx clavulanate 125 mg tablet prednisone 10 mg tablet 10 mg PO DAILY #30 tabs 09/17/24 Rx Allergies Allergy/AdvReac Type Severity Reaction Status Date / Time latex Allergy Verified 01/02/24 08:49 dairy AdvReac Uncoded 01/02/24 08:49 vanilla AdvReac Uncoded 01/02/24 08:49 Review of Systems Review of Systems Narrative: General - w/o fever or chills GI - abdominal pain, loose stool with small amount of blood CVS - w/o chest pain RS - w/o shortness of breath UG - w/o dysuria or hematuria Exam Vital Signs (past 8 hours): - 09/20/24 23:31 09/20/24 23:32 09/21/24 00:00 Temperature Pulse Rate 89 84 Respiratory Rate Blood Pressure 127/72 Pulse Oximetry 98 95 Oxygen Flow Rate 09/21/24 00:36 09/21/24 01:00 09/21/24 01:30 Temperature Pulse Rate 86 79 80 Respiratory Rate Blood Pressure Pulse Oximetry 99 95 95 Oxygen Flow Rate 09/21/24 02:00 09/21/24 02:30 09/21/24 02:54 Temperature Pulse Rate 78 77 82 Respiratory Rate Blood Pressure Pulse Oximetry 96 96 100 Oxygen Flow Rate 09/21/24 02:54 09/21/24 03:00 09/21/24 03:30 Temperature Pulse Rate 69 69 Respiratory Rate Blood Pressure 146/77 H Pulse Oximetry 95 94 Oxygen Flow Rate 09/21/24 04:00 Temperature 97.7 F Pulse Rate 71 Respiratory Rate 19 Blood Pressure 124/77 Pulse Oximetry 98 Oxygen Flow Rate 0 Oxygen Delivery Method Room Air Oxygen Flow Rate 0 Narrative Exam Narrative: General - in no distress GI - abdomen not distended, w/o peritoneal signs CVS - RRR RS - normal respiratory effort Neuro - lucid, w/o deficits Skin - not jaundiced Objective Imaging CT scan - abdomen: Radiologist's impression: Compared to prior CT 09/17/2024, no significant change in colitis involving the descending colon through the rectum with wall thickening, submucosal edema and adjacent fat stranding. Labs 09/20/24 21:35 09/20/24 21:35 Labs: Laboratory Results - last 24 hr 09/20/24 09/21/24 21:35 02:30 WBC 10.3 RBC 5.07 Hgb 14.7 Hct 43.4 MCV 85.5 MCH 28.9 MCHC 33.8 RDW 13.4 Plt Count 344 Neut % (Auto) 81.1 H Lymph % (Auto) 7.8 L [place] % (Auto) 10.7 Eos % (Auto) 0.0 L Baso % (Auto) 0.4 Neut # (Auto) 8300 H Lymph # (Auto) 800 L [place] # (Auto) 1100 H Eos # (Auto) 0 Baso # (Auto) 0 Sodium 134 L Potassium 4.0 Chloride 99 Carbon Dioxide 26 BUN 15 Creatinine 1.37 H Estimated GFR > 60 BUN/Creatinine Ratio 10.9 Glucose 121 H Calcium 8.7 Total Bilirubin 0.5 AST 23 ALT 23 Alkaline Phosphatase 63 Total Protein 7.1 Albumin 3.8 Globulin 3.3 Albumin/Globulin Ratio 1.2 Lipase 65 Urine RBC None seen Urine WBC None seen Ur Squamous Epith Cells None seen Urine Bacteria None seen Ur Culture Indicated? Cult not indicated Vol Urine Centrifuged 10ml (spun) Assessment & Plan Assessment and plan (1) Ulcerative colitis: Status: Acute (2) REA (acute kidney injury): Status: Acute Assessment & Plan narrative: Ulcerative colitis - diagnosed 10 years ago - apparently w/o need for treatment all these years - failed few days of outpatient prednisone and presented dehydrated with GFR going into wrong direction - unable to tolerate PO - placed in observation for IVFs, IV steroid, IV antiemetic, IV analgetic - monitored HH with small amount of bleed - strongly advised to follow with gastroenterology - clear liquid trial in a day REA - IVFs DVT prophylaxis - SCDs GI prophylaxis - PPI Time-Based Coding :: [TOTAL MINUTES] spent with patient and on the chart (including review of chart, obtaining history, exam, reviewing outside data, placing orders, documenting exam and treatment plan, and counseling patient) on [DATE]. Quality VTE Deep Vein Thrombosis/Pulmonary Embolism Present on Admission: No
[2024-09-21] MEDS: HYDROMORPHONE 1 MG INJ IV ×6 (06:00→20:47)
[2024-09-21 06:52] LABS: Hematocrit 40.3 % (41-53); Hemoglobin 13.7 g/dL (13.5-17.5); Mean Corpuscular HGB Conc 33.9 % (30-36); Mean Corpuscular Hemoglobin 29.4 PG (26-34); Mean Corpuscular Volume 86.6 fL (80-100); Platelet Count 302 X10^3/uL (150-400); Red Blood Cell Count 4.65 X10^6/uL (4.5-5.9); Red Cell Distribution Width 13.1 % (11.6-14.8); White Blood Cell Count 10.9 X10^3/uL (4.5-11.0)
[2024-09-21 06:59] LABS: Add Manual Diff / Slide Review YES
[2024-09-21 07:02] LABS: BUN Creatinine Ratio 11.1 (6-22); Blood Urea Nitrogen 13 mg/dL (9-20); Calcium 8.2 mg/dL (8.4-10.2); Carbon Dioxide 23 mmol/L (22-32); Chloride 101 mmol/L (98-107); Estimated Glomerular Filt Rate > 60 mL/min (>60); Glucose 149 mg/dL (70-100); HEMOLYSIS < 15 (0-50); Potassium 3.8 mmol/L (3.4-5.1); Sodium 133 mmol/L (137-145)
[2024-09-21 07:10] LABS: Neutrophils Absolute Manual 10137 /uL (3000-5900); Total Cells Counted 100
[2024-09-21 07:11] LABS: Anisocytosis 1+
--- NOTE | 2024-09-21 07:58 | PC.NURSE ---
Admit/NOC Shift Note- Patient arrived to room via stretcher from ER at 0350. Patient alert and oriented and able to make needs known to staff. Admit questions done, physical assessment done, medications reviewed, and skin check completed. Patient oriented to bed and bed controls, room, bathroom, lights, phone, menu, and call miller and phone within reach. Patient steady on his feet with no history of recent falls. Patient independent to bathroom. Safety measures in place. call miller and phone within reach. Will continue to [id number].
[2024-09-21] MEDS: methylPREDNISolone 125 MG/2 ML VIAL 60 MG IV (08:35)
[2024-09-21] MEDS: OXYCODONE IR 5 MG TABLET PO ×2 (10:45→21:31)
--- NOTE | 2024-09-21 13:09 | PM.PN.1 ---
Subjective Subjective Interval history: Chief complaint: lower abd pain, nausea secondary to flare of ulcerative colitis History of present illness: 54 y/o with PMH of ulcerative colitis diagnosed 10 years ago, inactive in last few years on no treatment, had a flare last week, seen in the ED and discharged home on prednisone taper. He continued to be nauseated, was unable to eat or drink, had loose BMs with small amount of blood and came back tonight. CT same as previous study, extensive colitis. Placed in observation for IVFs, IV steroid, IV pain management Hospital course: 09/21: Patient is still having significant abdominal pain but he moves has not had any blood per rectum No fevers overnight no chills reported. Patient is started on clear liquids today Review of systems: No fever chills No difficulty swallowing No chest pain palpitations No shortness a breath or cough No urinary symptoms No paresthesia or paresis Physical exam: No acute distress HEENT dry oropharynx otherwise unremarkable Neck no JVD Heart rate and rhythm regular Lungs clear Abdomen moderately distended but not tense Not tender to palpation Extremities no edema Exam Vital Signs (past 8 hours): - 09/21/24 08:00 09/21/24 12:00 Temperature 97.3 F L 97.9 F Pulse Rate 74 77 Respiratory Rate 18 18 Blood Pressure 144/85 H 122/76 Pulse Oximetry 98 97 Oxygen Flow Rate 0 0 Oxygen Delivery Method Room Air Oxygen Flow Rate 0 Objective Labs 09/21/24 06:25 09/21/24 06:25 Labs: Laboratory Results - last 24 hr 09/20/24 09/21/24 09/21/24 21:35 02:30 06:25 WBC 10.3 10.9 RBC 5.07 4.65 Hgb 14.7 13.7 Hct 43.4 40.3 L MCV 85.5 86.6 MCH 28.9 29.4 MCHC 33.8 33.9 RDW 13.4 13.1 Plt Count 344 302 Neut % (Auto) 81.1 H Not Reportable Lymph % (Auto) 7.8 L Not Reportable [place] % (Auto) 10.7 Not Reportable Eos % (Auto) 0.0 L Not Reportable Baso % (Auto) 0.4 Not Reportable Neut # (Auto) 8300 H Lymph # (Auto) 800 L Not Reportable [place] # (Auto) 1100 H Not Reportable Eos # (Auto) 0 Baso # (Auto) 0 Not Reportable Total Counted 100 Seg Neutrophils % 88.0 H Band Neutrophils % 5.0 Lymphocytes % (Manual) 2.0 L Atypical Lymphs % 3.0 H Monocytes % (Manual) 2.0 Neutrophils # (Manual) 65840 H RBC Morphology Not Reportable Anisocytosis 1+ H Sodium 134 L 133 L Potassium 4.0 3.8 Chloride 99 101 Carbon Dioxide 26 23 BUN 15 13 Creatinine 1.37 H 1.17 Estimated GFR > 60 > 60 BUN/Creatinine Ratio 10.9 11.1 Glucose 121 H 149 H Calcium 8.7 8.2 L Total Bilirubin 0.5 AST 23 ALT 23 Alkaline Phosphatase 63 Total Protein 7.1 Albumin 3.8 Globulin 3.3 Albumin/Globulin Ratio 1.2 Lipase 65 Urine RBC None seen Urine WBC None seen Ur Squamous Epith Cells None seen Urine Bacteria None seen Ur Culture Indicated? Cult not indicated Vol Urine Centrifuged 10ml (spun) PFSH Medical History (Updated 09/21/24 @ 06:12 by Cole Cyr MD) C. difficile colitis Abscess of rectum Irritable bowel syndrome Social History household members: children Smoking Status: Former smoker alcohol intake: current Assessment & Plan Assessment & Plan narrative: Ulcerative colitis - diagnosed 10 years ago - apparently w/o need for treatment all these years - failed few days of outpatient prednisone and presented dehydrated with GFR going into wrong direction - unable to tolerate PO - placed in observation for IVFs, IV steroid, IV antiemetic, IV analgetic - monitored HH with small amount of bleed - strongly advised to follow with gastroenterology - clear liquid trial today REA - IVFs -interval improvement DVT prophylaxis - SCDs GI prophylaxis - PPI Time-Based Coding :: 35 minutes spent with patient and on the chart (including review of chart, obtaining history, exam, reviewing outside data, placing orders, documenting exam and treatment plan, and counseling patient) Time-Based Coding :: [TOTAL MINUTES] spent with patient and on the chart (including review of chart, obtaining history, exam, reviewing outside data, placing orders, documenting exam and treatment plan, and counseling patient) on [DATE]. Quality VTE Deep Vein Thrombosis/Pulmonary Embolism Present on Admission: No
--- NOTE | 2024-09-21 16:27 | CM.DANOTE ---
DCP Assessment Note pt is a 54yo M admitted with REA/ulcerative colitis flair. PCP none, pt claims it's been years but is open to starting with PCP Payer none, pt is self pay. Has waldo packet, was encouraged to fill it out by admitting staff and this CLINICAL PROGRAM MANAGER CLINICAL PROGRAM MANAGER reviewed EMR. pt remains Nauseated/in a lot of abdominal pain. per provider, on IV fluids/pain meds/steroids. attempting to trial clears now. CLINICAL PROGRAM MANAGER met with pt in room. pt lives indep in [place]. drives. claims he makes too much to qualify for medicaid. does not remember name of PCP. open to new one if can be done without insurance. reports he is not very technology earle due to shinto beliefs, makes it hard to contact people/have people contact him for f/u. denies any CM/DCP needs. f/u with TCM closer to dc about potential SOC for PCP. if not, refer [facility] medical care f/u. P: home in a few days once able to tolerate general diet. f/u about SOC with new PCP. likely no other CM needs. 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 No Advance Directives on File No History Provided By Patient,Family Member,Medical Record Prior Living Arrangements House Household Members children Type of transporation used prior to Drives own vehicle admit Independent with ADL's Yes Is patient alert and oriented? Yes Discharge Plan Home Referrals Initiated None needed Review Status In Process Please Provide Date Initial DC 09/21/24 Assessment Was Performed Next Review Type Continued Stay Review
[2024-09-22] MEDS: LACTATED RINGERS 1,000 ML 100 ML IV ×3 (01:04→20:39)
[2024-09-22] MEDS: HYDROMORPHONE 1 MG INJ IV ×3 (03:26→10:06)
[2024-09-22 04:00] VITALS: BP 121/77; PULSE 72; RESP 18; TEMP 36.3; O2SAT 95
[2024-09-22] MEDS: OXYCODONE IR 10 MG TABLET PO ×3 (04:10→23:34)
[2024-09-22] MEDS: methylPREDNISolone 125 MG/2 ML VIAL 60 MG IV (08:27)
[2024-09-22 12:00] VITALS: BP 126/77; PULSE 77; RESP 15; TEMP 36.2; O2SAT 98
[2024-09-22] MEDS: OXYCODONE IR 5 MG TABLET PO ×3 (12:01→18:00)
--- NOTE | 2024-09-22 19:19 | P.PN_ITS ---
Subjective Subjective Date Patient Seen: 09/22/24 Time Patient Seen: 11:30 Interval history: Chief complaint: lower abd pain, nausea secondary to flare of ulcerative colitis History of present illness: 54 y/o with PMH of ulcerative colitis diagnosed 10 years ago, inactive in last few years on no treatment, had a flare last week, seen in the ED and discharged home on prednisone taper. He continued to be nauseated, was unable to eat or drink, had loose BMs with small amount of blood and came back tonight. CT same as previous study, extensive colitis. Placed in observation for IVFs, IV steroid, IV pain management Hospital course: 09/21: Patient is still having significant abdominal pain but he moves has not had any blood per rectum No fevers overnight no chills reported. Patient is started on clear liquids today 09/22: Less abdominal pain is tolerating liquid diet we will try advancing diet today no blood per rectum having liquid stool still Review of systems: No fever chills No difficulty swallowing No chest pain palpitations No shortness a breath or cough No urinary symptoms No paresthesia or paresis Physical exam: No acute distress HEENT dry oropharynx otherwise unremarkable Neck no JVD Heart rate and rhythm regular Lungs clear Abdomen moderately distended but not tense Not tender to palpation Extremities no edema Exam Vital Signs (past 8 hours): - 09/22/24 12:00 Temperature 97.1 F L Pulse Rate 77 Respiratory Rate 15 Blood Pressure 126/77 Pulse Oximetry 98 Oxygen Flow Rate 0 Oxygen Delivery Method Room Air Oxygen Flow Rate 0 Objective Labs 09/21/24 06:25 09/21/24 06:25 [facility] Medical History (Updated 09/21/24 @ 06:12 by Cole Cyr MD) C. difficile colitis Abscess of rectum Irritable bowel syndrome Social History household members: children Smoking Status: Former smoker alcohol intake: current Assessment & Plan Assessment & Plan narrative: Ulcerative colitis - diagnosed 10 years ago - apparently w/o need for treatment all these years - failed few days of outpatient prednisone and presented dehydrated with GFR going into wrong direction - unable to tolerate PO - placed in observation for IVFs, IV steroid, IV antiemetic, IV analgetic - monitored HH with small amount of bleed - strongly advised to follow with gastroenterology -advance diet as tolerated today REA - IVFs -interval improvement DVT prophylaxis - SCDs GI prophylaxis - PPI Time-Based Coding :: 35 minutes spent with patient and on the chart (including review of chart, obtaining history, exam, reviewing outside data, placing orders, documenting exam and treatment plan, and counseling patient) Time-Based Coding :: [TOTAL MINUTES] spent with patient and on the chart (including review of chart, obtaining history, exam, reviewing outside data, placing orders, documenting exam and treatment plan, and counseling patient) on [DATE]. Quality VTE Deep Vein Thrombosis/Pulmonary Embolism Present on Admission: No
[2024-09-22 20:00] VITALS: BP 123/72; PULSE 70; RESP 17; TEMP 36.8; O2SAT 95
[2024-09-23] MEDS: OXYCODONE IR 10 MG TABLET PO (02:43)
[2024-09-23] MEDS: HYDROMORPHONE 1 MG INJ IV ×2 (03:29→06:02)
[2024-09-23 04:00] VITALS: BP 104/69; PULSE 67; RESP 17; TEMP 36.4; O2SAT 97
[2024-09-23] MEDS: LACTATED RINGERS 1,000 ML 100 ML IV ×2 (06:01→21:37)
[2024-09-23 06:31] LABS: Add Manual Diff / Slide Review NO; Basophils Absolute Auto 0 /uL (0-100); Basophils Percent Auto 0.5 % (0-2); Eosinophils Absolute Auto 0 /uL (0-450); Eosinophils Percent Auto 0.7 % (2-4); Hematocrit 40.5 % (41-53); Hemoglobin 13.6 g/dL (13.5-17.5); Lymphocytes Absolute Auto 900 /uL (1100-4500); Lymphocytes Percent Auto 12.8 % (25-40); Mean Corpuscular HGB Conc 33.5 % (30-36); Mean Corpuscular Volume 86.5 fL (80-100); Monocytes Absolute Auto 900 /uL (0-900); Monocytes Percent Auto 12.7 % (3-14); Neutrophils Absolute Auto 5100 /uL (1500-7000); Neutrophils Percent Auto 73.3 % (50-75); Platelet Count 316 X10^3/uL (150-400); Red Blood Cell Count 4.68 X10^6/uL (4.5-5.9); Red Cell Distribution Width 13.3 % (11.6-14.8)
[2024-09-23 06:35] LABS: Alanine Aminotransferase 20 IU/L (<50); Alkaline Phosphatase 55 U/L (38-126); Aspartate Aminotransferase 20 IU/L (17-59); BUN Creatinine Ratio 6.9 (6-22); Bilirubin Total 0.3 mg/dL (0.2-1.3); Blood Urea Nitrogen 8 mg/dL (9-20); Calcium 7.9 mg/dL (8.4-10.2); Carbon Dioxide 30 mmol/L (22-32); Chloride 97 mmol/L (98-107); Estimated Glomerular Filt Rate > 60 mL/min (>60); Globulin 2.9 g/dL (1.7-4.1); Glucose 107 mg/dL (70-100); HEMOLYSIS < 15 (0-50); Potassium 3.2 mmol/L (3.4-5.1); Sodium 133 mmol/L (137-145); Total Protein 5.9 g/dL (6.3-8.2)
[2024-09-23] MEDS: methylPREDNISolone 125 MG/2 ML VIAL 60 MG IV ×3 (09:34→21:36)
[2024-09-23] MEDS: OXYCODONE IR 5 MG TABLET PO ×3 (09:34→22:59)
[2024-09-23] MEDS: POTASSIUM CHLORIDE 20 MEQ TAB 40 MEQ PO ×2 (10:00→17:59)
[2024-09-23 12:00] VITALS: BP 117/64; PULSE 87; RESP 20; TEMP 36.8; O2SAT 98
--- NOTE | 2024-09-23 13:05 | DI.CT.S_ITS ---
PROCEDURE: CT ABDOMEN PELVIS WO CON INDICATIONS: Ulcerative colitis TECHNIQUE: Axial sections were acquired from the lung bases to the pubic symphysis. Coronal and sagittal reformats were performed. For radiation dose reduction, the following was used: automated exposure control, adjustment of mA and/or kV according to patient size. COMPARISON: [facility], CT, CT ABDOMEN PELVIS W CON, 09/21/2024, 0:23. FINDINGS: Image quality: Diagnostic. Lower Chest: No significant findings. URINARY: Right Kidney: No stones or hydronephrosis. Right Ureter: No hydroureter. Left Kidney: No stones or hydronephrosis. Left Ureter: No hydroureter. Bladder: Normal wall thickness. No stones. ABDOMEN: Liver: No contour-deforming solid mass. Gallbladder: No radiopaque gallstones or wall thickening. Biliary ducts: No biliary dilation. Pancreas: No ductal dilation. Spleen: Size is within normal limits. Adrenal Glands: No adrenal nodules. Stomach and Bowel: Again seen colonic wall thickening and surrounding inflammation involving the descending colon through the rectum. This is similar appearance to prior. The remainder of the colon appears normal. Normal appendix. No small bowel obstruction. Peritoneum: No abnormal intraperitoneal fluid. No free air. Ventral Wall: No hernia. Abdominal Nodes: No enlarged retroperitoneal or mesenteric lymph nodes. Vessels: Aorta and inferior vena cava are normal in size. Mild atherosclerotic calcifications. PELVIS: Pelvic Organs: Unremarkable. Pelvic Nodes: Unremarkable. Miscellaneous: No inguinal hernias are seen. Bones: Grade 1 anterolisthesis of L5 on S1 with bilateral pars interarticularis defects. Degenerative changes, most pronounced at L5-S1. IMPRESSION: Similar appearance of colitis involving the descending colon through the cecum with associated pericolonic inflammation. Dictated by: Mode Alexander M.D. on 09/23/2024 at 16:36 Approved by: Mode Alexander M.D. on 09/23/2024 at 16:41
--- NOTE | 2024-09-23 13:06 | PM.PN.1 ---
Subjective Subjective Date Patient Seen: 09/23/24 Time Patient Seen: 13:06 Interval history: Chief complaint: lower abd pain, nausea secondary to flare of ulcerative colitis History of present illness: 54 y/o with PMH of ulcerative colitis diagnosed 10 years ago, inactive in last few years on no treatment, had a flare last week, seen in the ED and discharged home on prednisone taper. He continued to be nauseated, was unable to eat or drink, had loose BMs with small amount of blood and came back tonight. CT same as previous study, extensive colitis. Placed in observation for IVFs, IV steroid, IV pain management Hospital course: 09/21: Patient is still having significant abdominal pain but he moves has not had any blood per rectum No fevers overnight no chills reported. Patient is started on clear liquids today 09/22: Less abdominal pain is tolerating liquid diet we will try advancing diet today no blood per rectum having liquid stool still 09/23: Patient having increasing abdominal pain with 8 episodes of diarrhea this morning after attempting to eat a cookie and some ham Will increase frequency of Solu-Medrol from 60 daily to 60 q.8 hours Increase Dilaudid to 2 mg as needed for pain for pain control Repeat CT without contrast of the abdomen and pelvis Review of systems: No fever chills No difficulty swallowing No chest pain palpitations No shortness a breath or cough No urinary symptoms No paresthesia or paresis Physical exam: No acute distress HEENT dry oropharynx otherwise unremarkable Neck no JVD Heart rate and rhythm regular Lungs clear Abdomen moderately distended but not tense Not tender to palpation Extremities no edema Assessment and plan: Ulcerative colitis - diagnosed 10 years ago presenting with abscess - apparently w/o need for treatment all these years - failed few days of outpatient prednisone and presented dehydrated with GFR going into wrong direction - unable to tolerate PO we will need to escalate Solu-Medrol to 60 IV q.8 hours -advance diet as tolerated today REA - IVFs -interval improvement DVT prophylaxis - SCDs GI prophylaxis - PPI Time-Based Coding :: 35 minutes spent with patient and on the chart (including review of chart, obtaining history, exam, reviewing outside data, placing orders, documenting exam and treatment plan, and counseling patient) 09/22/2024 Exam Vital Signs (past 8 hours): - 09/23/24 12:00 Temperature 98.3 F Pulse Rate 87 Respiratory Rate 20 Blood Pressure 117/64 Pulse Oximetry 98 Oxygen Flow Rate 0 Oxygen Delivery Method Room Air Oxygen Flow Rate 0 Objective Labs 09/23/24 06:10 09/23/24 06:10 Labs: Laboratory Results - last 24 hr 09/23/24 06:10 WBC 7.0 RBC 4.68 Hgb 13.6 Hct 40.5 L MCV 86.5 MCH 29.0 MCHC 33.5 RDW 13.3 Plt Count 316 Neut % (Auto) 73.3 Lymph % (Auto) 12.8 L [place] % (Auto) 12.7 Eos % (Auto) 0.7 L Baso % (Auto) 0.5 Neut # (Auto) 5100 Lymph # (Auto) 900 L [place] # (Auto) 900 Eos # (Auto) 0 Baso # (Auto) 0 Sodium 133 L Potassium 3.2 L Chloride 97 L Carbon Dioxide 30 BUN 8 L Creatinine 1.16 Estimated GFR > 60 BUN/Creatinine Ratio 6.9 Glucose 107 H Calcium 7.9 L Total Bilirubin 0.3 AST 20 ALT 20 Alkaline Phosphatase 55 Total Protein 5.9 L Albumin 3.0 L Globulin 2.9 Albumin/Globulin Ratio 1.0 [facility] Medical History (Updated 09/21/24 @ 06:12 by Cole Cyr MD) C. difficile colitis Abscess of rectum Irritable bowel syndrome Social History household members: children Smoking Status: Former smoker alcohol intake: current Assessment & Plan Time-Based Coding :: [TOTAL MINUTES] spent with patient and on the chart (including review of chart, obtaining history, exam, reviewing outside data, placing orders, documenting exam and treatment plan, and counseling patient) on [DATE]. Quality VTE Deep Vein Thrombosis/Pulmonary Embolism Present on Admission: No
[2024-09-23] MEDS: POTASSIUM CHLORIDE 20 MEQ/15 ML UDC 40 MEQ PO (14:43)
--- NOTE | 2024-09-23 17:45 | DIET.CONS ---
Addendum entered by Ibeth Murcia 09/24/24 08:33: Pt requested dairy, wheat and beef containing products be entered as allergies in his chart d/t gastrointestinal upset these products cause with his ulcerative colitis. These were added to chart. Original Note: Dietary Consultation Note Admission Date: 09/21/2024 03:23 Assessment: 54 y M admitted for ulcerative colitis. Nutrition consulted for pt not eating much of food provided. Met with pt at bedside and discussed foods he best tolerates when in flare up. These include: pork, potatoes, rice, juice, lemon ice, oatmeal, vegetable broth. Reports decrease in appetite over last 6 wks, but no weight loss. Reports more severe decrease in PO intakes this past week. Ht: 187.96 cm Wt: 90 kg BMI: 25.4 UBW: pt reports UBW of 175 lb (79.54 kg) was 77.111 kg on 09/20/24 (-3% weight loss in 6 wks, non-severe) Last BM: 09/23/24 (09/23/24 13:04) MNA: 12 Chaitanya Score: 19 Diet: 09/22/24 Dinner General (Regular) Diet Diet Modifications: Food Texture: Level 7 - Regular Liquid Consistency: Level 0 - Thin Nutrition Percent Meal Consumed 100% 09/22/24 15:41 Percent Meal Consumed 100% 09/22/24 13:10 Percent Meal Consumed 100% 09/21/24 18:00 Labs: RBC 4.68 X10^6/uL (4.5-5.9) 09/23/24 06:10 Hgb 13.6 g/dL (13.5-17.5) 09/23/24 06:10 Hct 40.5 % (41-53) L 09/23/24 06:10 Creatinine 1.16 mg/dL (0.66-1.25) 09/23/24 06:10 Nutrition Diagnosis: Inadequate oral intake r/t alterations in GI tract function/structure aeb IBD in flare-up with pt reporting <50% of EER in 5-7 days and unsure food available here that he can tolerate Interventions: Discussed his tolerated food options and our menu options, coordinated with unit host Tried Ensure Clear, pt drank but reports not liking it Monitoring/Evaluations: PO intakes Electronically Signed by: Ibeth Murcia 09/23/24 17:45 Clinical Dietitian [address] [id number]
[2024-09-23 19:45] VITALS: BP 119/71; PULSE 64; RESP 16; O2SAT 97
[2024-09-24] MEDS: OXYCODONE IR 10 MG TABLET PO ×2 (02:06→18:00)
[2024-09-24 04:54] LABS: BUN Creatinine Ratio 10.2 (6-22); Blood Urea Nitrogen 9 mg/dL (9-20); Calcium 8.4 mg/dL (8.4-10.2); Carbon Dioxide 28 mmol/L (22-32); Chloride 101 mmol/L (98-107); Estimated Glomerular Filt Rate > 60 mL/min (>60); Glucose 164 mg/dL (70-100); HEMOLYSIS < 15 (0-50); Potassium 4.3 mmol/L (3.4-5.1); Sodium 137 mmol/L (137-145)
[2024-09-24 05:17] VITALS: BP 110/74; PULSE 64; RESP 16; O2SAT 98
[2024-09-24] MEDS: methylPREDNISolone 125 MG/2 ML VIAL 60 MG IV (05:30)
[2024-09-24] MEDS: OXYCODONE IR 5 MG TABLET PO ×3 (05:30→21:02)
[2024-09-24] MEDS: ASCORBIC ACID 500 MG TABLET PO (09:03)
--- NOTE | 2024-09-24 09:18 | PM.PN.1 ---
Subjective Subjective Date Patient Seen: 09/24/24 Time Patient Seen: 09:18 Interval history: Chief complaint: lower abd pain, nausea secondary to flare of ulcerative colitis History of present illness: 54 y/o with PMH of ulcerative colitis diagnosed 10 years ago, inactive in last few years on no treatment, had a flare last week, seen in the ED and discharged home on prednisone taper. He continued to be nauseated, was unable to eat or drink, had loose BMs with small amount of blood and came back tonight. CT same as previous study, extensive colitis. Placed in observation for IVFs, IV steroid, IV pain management Hospital course: 09/21: Patient is still having significant abdominal pain but he moves has not had any blood per rectum No fevers overnight no chills reported. Patient is started on clear liquids today 09/22: Less abdominal pain is tolerating liquid diet we will try advancing diet today no blood per rectum having liquid stool still 09/23: Patient having increasing abdominal pain with 8 episodes of diarrhea this morning after attempting to eat a cookie and some ham Will increase frequency of Solu-Medrol from 60 daily to 60 q.8 hours Increase Dilaudid to 2 mg as needed for pain for pain control Repeat CT without contrast of the abdomen and pelvis 09/24: Still no change in ability to eat still having diarrhea still poor tolerating anything except the most simple starches and clear liquids CT abdomen and pelvis does not show any improvement or worsening no abscesses or free fluid We will escalate the Solu-Medrol to 125 mg IV q.6 hours We will add mesalamine 800 mg t.i.d. p.o. There is no cyclosporin or infliximab available at this facility. If there is still no improvement may need to consider escalating to another facility with the gastroenterology service Review of systems: No fever chills No difficulty swallowing No chest pain palpitations No shortness a breath or cough No urinary symptoms No paresthesia or paresis Physical exam: No acute distress HEENT dry oropharynx otherwise unremarkable Neck no JVD Heart rate and rhythm regular Lungs clear Abdomen moderately distended but not tense Not tender to palpation Extremities no edema Assessment and plan: Ulcerative colitis - diagnosed 10 years ago presenting with abscess - apparently w/o need for treatment all these years - failed few days of outpatient prednisone and presented dehydrated with GFR going into wrong direction - We will escalate the Solu-Medrol to 125 mg IV q.6 hours - We will add mesalamine 800 mg t.i.d. p.o. - There is no cyclosporin or infliximab available at this facility. - If there is still no improvement may need to consider escalating to another facility with the gastroenterology service REA - IVFs -interval improvement DVT prophylaxis - SCDs GI prophylaxis - PPI Time-Based Coding :: 35 minutes spent with patient and on the chart (including review of chart, obtaining history, exam, reviewing outside data, placing orders, documenting exam and treatment plan, and counseling patient) 09/24/2024 Exam Vital Signs (past 8 hours): - 09/24/24 05:17 Pulse Rate 64 Respiratory Rate 16 Blood Pressure 110/74 Pulse Oximetry 98 Oxygen Delivery Method Room Air Oxygen Flow Rate 0 Objective Labs 09/23/24 06:10 09/24/24 04:21 Labs: Laboratory Results - last 24 hr 09/24/24 04:21 Sodium 137 Potassium 4.3 Chloride 101 Carbon Dioxide 28 BUN 9 Creatinine 0.88 Estimated GFR > 60 BUN/Creatinine Ratio 10.2 Glucose 164 H Calcium 8.4 PFSH Medical History (Updated 09/21/24 @ 06:12 by Cole Cyr MD) C. difficile colitis Abscess of rectum Irritable bowel syndrome Social History household members: children Smoking Status: Former smoker alcohol intake: current Assessment & Plan Time-Based Coding :: [TOTAL MINUTES] spent with patient and on the chart (including review of chart, obtaining history, exam, reviewing outside data, placing orders, documenting exam and treatment plan, and counseling patient) on [DATE]. Quality VTE Deep Vein Thrombosis/Pulmonary Embolism Present on Admission: No
[2024-09-24] MEDS: MESALAMINE 400 MG CAP.DRTAB. 800 MG PO ×3 (09:44→20:59)
[2024-09-24] MEDS: LACTATED RINGERS 1,000 ML 100 ML IV (09:44)
[2024-09-24] MEDS: methylPREDNISolone 125 MG/2 ML VIAL IV ×2 (11:57→18:00)
[2024-09-24 13:00] VITALS: BP 117/77; PULSE 67; RESP 14; TEMP 36.3; O2SAT 95
--- NOTE | 2024-09-24 16:18 | DIET.PN1 ---
Dietary Progress Note Assessment: F/u with pt at bedside. Reports eating chicken and potatoes for lunch- no seasoning, just plain. Placed orders for dinner and breakfast based on best tolerated foods discussed. Reports no BM since this morning. Interested in outpatient appt. Provided information for referral. Ht: 187.96 cm Wt: 90 kg BMI: 25.4 Last BM: 09/23/24 (09/23/24 13:04) MNA: 12 Chaitanya Score: 22 Diet: 09/22/24 Dinner General (Regular) Diet Diet Modifications: Food Texture: Level 7 - Regular Liquid Consistency: Level 0 - Thin Nutrition Percent Meal Consumed 100% 09/24/24 09:36 Percent Meal Consumed 50% 09/23/24 18:00 Labs: RBC 4.68 X10^6/uL (4.5-5.9) 09/23/24 06:10 Hgb 13.6 g/dL (13.5-17.5) 09/23/24 06:10 Hct 40.5 % (41-53) L 09/23/24 06:10 Creatinine 0.88 mg/dL (0.66-1.25) 09/24/24 04:21 Electronically Signed by: Ibeth Murcia 09/24/24 16:18 Clinical Dietitian [address] [address]
[2024-09-24] MEDS: ACETAMINOPHEN 325 MG TABLET 650 MG PO (18:00)
[2024-09-24 19:57] VITALS: BP 143/93; PULSE 84; RESP 19; TEMP 36.6; O2SAT 100
[2024-09-25] MEDS: methylPREDNISolone 125 MG/2 ML VIAL IV ×5 (00:42→23:52)
[2024-09-25] MEDS: ACETAMINOPHEN 325 MG TABLET 650 MG PO ×3 (00:44→23:51)
[2024-09-25] MEDS: OXYCODONE IR 10 MG TABLET PO ×2 (02:38→22:09)
[2024-09-25 03:00] VITALS: BP 136/89; PULSE 77; RESP 18; TEMP 37; O2SAT 98
[2024-09-25] MEDS: OXYCODONE IR 5 MG TABLET PO ×4 (06:38→18:39)
[2024-09-25] MEDS: MESALAMINE 400 MG CAP.DRTAB. 800 MG PO ×3 (08:02→20:12)
[2024-09-25] MEDS: ASCORBIC ACID 500 MG TABLET PO (08:03)
--- NOTE | 2024-09-25 08:14 | CM.DPC ---
[facility] care form was faxed to [facility] Patient Accounts this morning at [phone]. a copy was also sent to scanning folder to be adder to patient's chart and a copy was given to the patient.
--- NOTE | 2024-09-25 11:16 | PM.PN.IH.1 ---
Subjective Subjective Date Patient Seen: 09/25/24 Time Patient Seen: 08:20 Interval history: Chief complaint: lower abd pain, nausea secondary to flare of ulcerative colitis History of present illness: 54 y/o with PMH of ulcerative colitis diagnosed 10 years ago, inactive in last few years on no treatment, had a flare last week, seen in the ED and discharged home on prednisone taper. He continued to be nauseated, was unable to eat or drink, had loose BMs with small amount of blood and came back tonight. CT same as previous study, extensive colitis. Placed in observation for IVFs, IV steroid, IV pain management Hospital course: 09/21: Patient is still having significant abdominal pain but he moves has not had any blood per rectum No fevers overnight no chills reported. Patient is started on clear liquids today 09/22: Less abdominal pain is tolerating liquid diet we will try advancing diet today no blood per rectum having liquid stool still 09/23: Patient having increasing abdominal pain with 8 episodes of diarrhea this morning after attempting to eat a cookie and some ham Will increase frequency of Solu-Medrol from 60 daily to 60 q.8 hours Increase Dilaudid to 2 mg as needed for pain for pain control Repeat CT without contrast of the abdomen and pelvis 09/24: Still no change in ability to eat still having diarrhea still poor tolerating anything except the most simple starches and clear liquids CT abdomen and pelvis does not show any improvement or worsening no abscesses or free fluid We will escalate the Solu-Medrol to 125 mg IV q.6 hours We will add mesalamine 800 mg t.i.d. p.o. There is no cyclosporin or infliximab available at this facility. If there is still no improvement may need to consider escalating to another facility with the gastroenterology service 09/25: He reports he is improving but ongoing diarrhea and is advancing to a bland soft diet Exam Vital Signs (past 8 hours): Oxygen Delivery Method Room Air Oxygen Flow Rate 0 Narrative Exam Narrative: No acute distress HEENT dry oropharynx otherwise unremarkable Neck no JVD Heart rate and rhythm regular Lungs clear Abdomen moderately distended but not tense Not tender to palpation Extremities no edema Objective Labs 09/23/24 06:10 09/24/24 04:21 [facility] Medical History (Updated 09/21/24 @ 06:12 by Cole Cyr MD) Abscess of rectum C. difficile colitis Irritable bowel syndrome Social History household members: children Smoking Status: Former smoker alcohol intake: current Assessment & Plan Assessment & Plan narrative: Ulcerative colitis - diagnosed 10 years ago presenting with abscess - apparently w/o need for treatment all these years - failed few days of outpatient prednisone and presented dehydrated with GFR going into wrong direction - continue Solu-Medrol to 125 mg IV q.6 hours - continue mesalamine 800 mg t.i.d. p.o. - There is no cyclosporin or infliximab available at this facility. - improving, continue to monitor. If there is still no significant improvement may need to consider escalating to another facility with the gastroenterology service REA - IVFs -interval improvement DVT prophylaxis - SCDs GI prophylaxis - PPI Quality VTE Deep Vein Thrombosis/Pulmonary Embolism Present on Admission: No [facility] Room Specialist Document charge(s): No Charge Codes Subsequent inpatient/observation care: [id number]
[2024-09-25 11:18] VITALS: BP 124/79; PULSE 74; RESP 14; TEMP 36.4; O2SAT 95
[2024-09-25] MEDS: HYDROMORPHONE 1 MG INJ 2 MG IV (19:50)
[2024-09-25 20:00] VITALS: BP 125/87; PULSE 65; RESP 24; TEMP 36.9; O2SAT 96
[2024-09-26 04:00] VITALS: BP 129/78; PULSE 67; RESP 20; O2SAT 100
[2024-09-26] MEDS: OXYCODONE IR 10 MG TABLET PO ×2 (04:32→08:19)
[2024-09-26] MEDS: HYDROMORPHONE 1 MG INJ 2 MG IV ×3 (06:43→21:36)
[2024-09-26] MEDS: methylPREDNISolone 125 MG/2 ML VIAL IV ×4 (06:44→23:51)
--- NOTE | 2024-09-26 06:52 | PC.NURSE ---
pt c/o pain 8\10 when he uses the bathroom, when this happens pain is only relief by 2 mg of diaudid. Pt taking oxydone in between iv medications, pt requesting for dilaudid to be increase to every 2 hours. will update MD.
[2024-09-26 08:00] VITALS: BP 129/85; PULSE 76; RESP 18; O2SAT 97
[2024-09-26] MEDS: MESALAMINE 400 MG CAP.DRTAB. 800 MG PO ×3 (08:09→20:25)
[2024-09-26] MEDS: ASCORBIC ACID 500 MG TABLET PO (08:09)
[2024-09-26 09:32] VITALS: O2SAT 97
--- NOTE | 2024-09-26 09:43 | PM.PN.IH.1 ---
Subjective Subjective Date Patient Seen: 09/26/24 Time Patient Seen: 09:35 Interval history: Chief complaint: lower abd pain, nausea secondary to flare of ulcerative colitis History of present illness: 54 y/o with PMH of ulcerative colitis diagnosed 10 years ago, inactive in last few years on no treatment, had a flare last week, seen in the ED and discharged home on prednisone taper. He continued to be nauseated, was unable to eat or drink, had loose BMs with small amount of blood and came back tonight. CT same as previous study, extensive colitis. Placed in observation for IVFs, IV steroid, IV pain management Hospital course: 09/21: Patient is still having significant abdominal pain but he moves has not had any blood per rectum No fevers overnight no chills reported. Patient is started on clear liquids today 09/22: Less abdominal pain is tolerating liquid diet we will try advancing diet today no blood per rectum having liquid stool still 09/23: Patient having increasing abdominal pain with 8 episodes of diarrhea this morning after attempting to eat a cookie and some ham Will increase frequency of Solu-Medrol from 60 daily to 60 q.8 hours Increase Dilaudid to 2 mg as needed for pain for pain control Repeat CT without contrast of the abdomen and pelvis 09/24: Still no change in ability to eat still having diarrhea still poor tolerating anything except the most simple starches and clear liquids CT abdomen and pelvis does not show any improvement or worsening no abscesses or free fluid We will escalate the Solu-Medrol to 125 mg IV q.6 hours We will add mesalamine 800 mg t.i.d. p.o. There is no cyclosporin or infliximab available at this facility. If there is still no improvement may need to consider escalating to another facility with the gastroenterology service 09/25: He reports he is improving but ongoing diarrhea and is advancing to a bland soft diet. 09/26: He reports improvement with a painful liquid to soft BM streaked with blood every 2 hours, asking for hydromorphone every 2 hours in addition to scheduled oxycodone. He is not on opioids chronically. He states this flare came from eating mislabeled beef, which he has avoided on a UC diet (no beef, high protein including liver, no gluten). Exam Vital Signs (past 8 hours): - 09/26/24 04:00 09/26/24 07:00 09/26/24 08:00 Pulse Rate 67 76 Respiratory Rate 20 18 Blood Pressure 129/78 129/85 Pulse Oximetry 100 97 Oxygen Delivery Method Room Air Oxygen Flow Rate 0 2 Fraction of Inspired Oxygen 09/26/24 09:32 Pulse Rate Respiratory Rate Blood Pressure Pulse Oximetry 97 Oxygen Delivery Method Nasal Cannula Oxygen Flow Rate 2 Fraction of Inspired Oxygen 28 Fraction of Inspired Oxygen 28 SaO2/FiO2 Ratio 346 Oxygen Delivery Method Nasal Cannula Oxygen Flow Rate 2 Narrative Exam Narrative: No acute distress HEENT dry oropharynx otherwise unremarkable Neck no JVD Heart rate and rhythm regular Lungs clear Abdomen moderately distended but not tense Not tender to palpation Extremities no edema Objective Labs 09/23/24 06:10 09/24/24 04:21 [facility] Medical History (Updated 09/21/24 @ 06:12 by Cole Cyr MD) Abscess of rectum C. difficile colitis Irritable bowel syndrome Social History household members: children Smoking Status: Former smoker alcohol intake: current Assessment & Plan Assessment & Plan narrative: Ulcerative colitis - diagnosed 10 years ago presenting with abscess - apparently w/o need for treatment all these years, flaring after recent beef exposure - failed few days of outpatient prednisone and presented dehydrated with GFR going into wrong direction - continue Solu-Medrol to 125 mg IV q.6 hours - continue mesalamine 800 mg t.i.d. p.o. - There is no cyclosporin or infliximab available at this facility. - improving, continue to monitor. If there is still no significant improvement may need to consider escalating to another facility with the gastroenterology service - increase hydromorphone to q2hrs for BMs, continue oxycodone, plan to stop all at discharge REA - resolved DVT prophylaxis - SCDs GI prophylaxis - PPI Quality VTE Deep Vein Thrombosis/Pulmonary Embolism Present on Admission: No IH PROFEE Lead Dental Assistant Document charge(s): No Charge Codes Subsequent inpatient/observation care: [id number]
[2024-09-26 16:00] VITALS: BP 136/85; PULSE 54; RESP 15; TEMP 36.7; O2SAT 97
[2024-09-26 20:00] VITALS: BP 126/88; PULSE 68; RESP 20; TEMP 36.5; O2SAT 95
[2024-09-27 04:00] VITALS: BP 118/81; PULSE 61; RESP 16; TEMP 36.2; O2SAT 98
[2024-09-27] MEDS: methylPREDNISolone 125 MG/2 ML VIAL IV ×2 (05:08→12:04)
[2024-09-27] MEDS: OXYCODONE IR 5 MG TABLET PO ×2 (05:37→12:04)
[2024-09-27] MEDS: ASCORBIC ACID 500 MG TABLET PO (08:43)
[2024-09-27] MEDS: MESALAMINE 400 MG CAP.DRTAB. 800 MG PO (08:43)
[2024-09-27] MEDS: ACETAMINOPHEN 325 MG TABLET 650 MG PO (08:44)
--- NOTE | 2024-09-27 10:50 | PM.DS.1 ---
History of Present Illness History of Present Illness Chief complaint: lower abd pain, nausea Narrative: From H&P: 54 y/o with PMH of ulcerative colitis diagnosed 10 years ago, inactive in last few years on no treatment, had a flare last week, seen in the ED and discharged home on prednisone taper. He continued to be nauseated, was unable to eat or drink, had loose BMs with small amount of blood and came back tonight. CT same as previous study, extensive colitis. Placed in observation for IVFs, IV steroid, IV pain management. Discharge Providers Provider Date of admission: 09/21/24 03:23 Discharge Date: 09/27/24 Consults: 09/23/24 10:19 Consult to Dietitian, Adult Routine Comment: Reason For Exam: Pt is not eating much of the food he is provided Discharge provider: Rodo Cornell MD Summary Hospital Course Discharge Diagnosis: 1. Ulcerative colitis with acute flare, present on admission and improved. - diagnosed 10 years ago presenting with abscess - apparently w/o need for treatment all these years, flaring after recent beef exposure 2. REA, present on admission and resolved. - resolved Hospital Course: Hospital course: 09/21: Patient is still having significant abdominal pain but he moves has not had any blood per rectum No fevers overnight no chills reported. Patient is started on clear liquids today 09/22: Less abdominal pain is tolerating liquid diet we will try advancing diet today no blood per rectum having liquid stool still 09/23: Patient having increasing abdominal pain with 8 episodes of diarrhea this morning after attempting to eat a cookie and some ham Will increase frequency of Solu-Medrol from 60 daily to 60 q.8 hours Increase Dilaudid to 2 mg as needed for pain for pain control Repeat CT without contrast of the abdomen and pelvis 09/24: Still no change in ability to eat still having diarrhea still poor tolerating anything except the most simple starches and clear liquids CT abdomen and pelvis does not show any improvement or worsening no abscesses or free fluid We will escalate the Solu-Medrol to 125 mg IV q.6 hours We will add mesalamine 800 mg t.i.d. p.o. There is no cyclosporin or infliximab available at this facility. If there is still no improvement may need to consider escalating to another facility with the gastroenterology service 09/25: He reports he is improving but ongoing diarrhea and is advancing to a bland soft diet. 09/26: He reports improvement with a painful liquid to soft BM streaked with blood every 2 hours, asking for hydromorphone every 2 hours in addition to scheduled oxycodone. He is not on opioids chronically. He states this flare came from eating mislabeled beef, which he has avoided on a UC diet (no beef, high protein including liver, no gluten). 09/27: He was symptoms have completely resolved. He would like to go home. He was willing to get another referral back to [facility]. He was not been taking any of the recommended medications for his ulcerative colitis for about 8 years. Status at Discharge Cognitive/behavioral status at discharge: oriented Functional status at discharge: independent ambulation Overall status at discharge: patient is back to baseline Time Spent with Patient Time spent: Greater than 30 minutes Exam Vital Signs (past 8 hours): - 09/27/24 04:00 Temperature 97.1 F L Pulse Rate 61 Respiratory Rate 16 Blood Pressure 118/81 Pulse Oximetry 98 Oxygen Flow Rate 0 Fraction of Inspired Oxygen 28 SaO2/FiO2 Ratio 346 Oxygen Delivery Method Nasal Cannula Oxygen Flow Rate 0 Narrative Exam Narrative: NAD, alert and oriented. Fluent speech. Lungs are clear, normal rate and effort. Heart is regular, no murmur gallop or rub. Abdomen is soft, non distended. Extremities are free of edema. Objective Labs 09/23/24 06:10 09/24/24 04:21 [facility] Medical History C. difficile colitis Abscess of rectum Irritable bowel syndrome Social History household members: children Smoking Status: Former smoker alcohol intake: current Discharge Assessment & Plan Assessment and Plan Assessment: 1. Ulcerative colitis with acute flare, present on admission and improved. - diagnosed 10 years ago presenting with abscess - apparently w/o need for treatment all these years, flaring after recent beef exposure 2. REA, present on admission and resolved. - resolved Discharge MIPS: The patient has no history of heart transplant or LVAD. The patient has no known history of depressed LV EF of less than 40%. Plan of Treatment: Discharge with prednisone 40 mg daily and mesalamine t.i.d.. He was asked to see the PCP within a week and have a referral sent back to [facility]. His PCP can begin a very slow taper of prednisone at the time of follow up within the next week which will likely happen over several weeks. Discharge Plan Discharge Plan Patient Disposition: Home Provider Discharge Comment: Symptoms resolved, stable for discharge home. Discharge orders & Medications Prescriptions: New oxycodone 5 mg Tablet 5 mg PO Q3H PRN (Reason: Pain, Moderate (4-6)) Qty: 15 0RF mesalamine [Delzicol] 400 mg Capsule (With Del Rel Tablets) 800 mg PO TID Qty: 120 2RF prednisone 20 mg tablet 40 mg PO DAILY Qty: 60 0RF Rx Instructions: See PCP within a week to start slow prednisone taper. ondansetron HCl 4 mg tablet 4 mg PO Q8H PRN (Reason: nausea and vomiting) 5 Days Qty: 20 0RF Discontinued acetaminophen 500 mg capsule 1,000 mg PO Q6H Qty: 30 0RF prednisone 10 mg tablet 10 mg PO DAILY Qty: 30 0RF Rx Instructions: day 1-3: 40 mg once a day day 4-6: 30 mg once a day day 7-9: 20 mg once a day day 10-12: 10 mg once a day amoxicillin-pot clavulanate 875-125 mg tablet 1 tab PO BID Qty: 20 0RF Discharge Health Status Multidrug resistant organism: No MDRO Diet/Activity/Treatments Diet: Diet as Tolerated Skin/Wound/Dressing Care Report to your healthcare provider any signs of infection, such as:: chills, fever and increased pain Visit Report/Discharge Packet Instructions: DI for Ulcerative Colitis Stand Alone Forms: Patient Portal/API Quality VTE Deep Vein Thrombosis/Pulmonary Embolism Present on Admission: No MIPS - DC The patient has a history of heart transplant or Left Ventricular Assist Device (LVAD). If yes, STOP here.: No The patient has current or prior documentation of left ventricular ejection fraction (LVEF) less than or equal to 40%, or moderate or severely depressed left ventricular systolic function.: No
--- NOTE | 2024-09-27 13:40 | CM.DPNOTE ---
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 Per RN, no obvious CM needs. Pt left prior to being seen by this COVERED BUCKLE ASSEMBLER P: home today, no CM needs. WIll continue to follow as needed СВЕТЛАНА Mcfarland
== END 2024-09-27 13:00 | disposition home or self-care (01) | DRG 386 ==
LOC: ED 09-21 00:05 → AC 09-21 03:51
PROVIDERS: Internal Medicine; Admitting Provider Internal Medicine; Emergency Provider Emergency Medicine; Referring Provider Internal Medicine; Visit Provider Internal Medicine
DX: K51.914 Ulcerative colitis, unspecified with abscess (principal); N17.9 Acute kidney failure, unspecified; K51.911 Ulcerative colitis, unspecified with rectal bleeding; E86.0 Dehydration; Z87.891 Personal history of nicotine dependence
CPT/HCPCS: 36415; 74176; 74177; 80048; 80053; 81003; 81015; 83690; 85007; 85025; 87086; 96361; 96374; 96375; 96376; 99284; J1171; J2405; J2470; J2919; Q9967

== ENCOUNTER 2024-10-06 18:46 | Emergency (ER) | payer SELFPAY ==
[2024-09-21 03:39] VITALS: BMI 25.4
[2024-10-06] VITALS (12 sets, daily range): BP systolic 108–127; BP diastolic 69–82; PULSE 70–103; RESP 10–32; TEMP 36.3; O2SAT 94–98; BMI 23.7
--- NOTE | 2024-10-06 19:19 | EKG_ITS ---
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
[2024-10-06 19:41] LABS: Add Manual Diff / Slide Review NO; Basophils Absolute Auto 0 /uL (0-100); Basophils Percent Auto 0.3 % (0-2); Eosinophils Absolute Auto 0 /uL (0-450); Eosinophils Percent Auto 0.6 % (2-4); Hemoglobin 12.2 g/dL (13.5-17.5); Lymphocytes Absolute Auto 600 /uL (1100-4500); Lymphocytes Percent Auto 8.3 % (25-40); Mean Corpuscular HGB Conc 33.8 % (30-36); Mean Corpuscular Hemoglobin 28.9 PG (26-34); Mean Corpuscular Volume 85.5 fL (80-100); Monocytes Absolute Auto 600 /uL (0-900); Monocytes Percent Auto 8.7 % (3-14); Neutrophils Absolute Auto 5900 /uL (1500-7000); Neutrophils Percent Auto 82.1 % (50-75); Platelet Count 292 X10^3/uL (150-400); Red Blood Cell Count 4.21 X10^6/uL (4.5-5.9); Red Cell Distribution Width 13.6 % (11.6-14.8); White Blood Cell Count 7.2 X10^3/uL (4.5-11.0)
[2024-10-06 19:48] LABS: INR 1.1 (0.9-1.3)
[2024-10-06 19:50] LABS: PTT Partial Thromboplastin Tim 28 SECONDS (25.1-36.5)
[2024-10-06 19:51] LABS: Alanine Aminotransferase 78 IU/L (<50); Albumin 2.8 g/dL (3.5-5.0); Alkaline Phosphatase 67 U/L (38-126); Aspartate Aminotransferase 26 IU/L (17-59); BUN Creatinine Ratio 13.6 (6-22); Bilirubin Total 0.4 mg/dL (0.2-1.3); Blood Urea Nitrogen 12 mg/dL (9-20); Calcium 7.9 mg/dL (8.4-10.2); Carbon Dioxide 24 mmol/L (22-32); Chloride 101 mmol/L (98-107); Estimated Glomerular Filt Rate > 60 mL/min (>60); Globulin 2.7 g/dL (1.7-4.1); Glucose 147 mg/dL (70-100); HEMOLYSIS < 15 (0-50); Potassium 3.4 mmol/L (3.4-5.1); Sodium 133 mmol/L (137-145); Total Protein 5.5 g/dL (6.3-8.2)
[2024-10-06 21:37] LABS: Bacteria Urine None Seen; Culture Indicated Urine Cult Not Indicated; RBC Urine None Seen (0-5/HPF); Squamous Epithelial Cell Urine None Seen (0-5/HPF); Urine Volume 10mL (spun); WBC Urine 0-1/HPF (0-5/HPF)
--- NOTE | 2024-10-06 22:00 | ED_ITS ---
HPI - GI Bleed General Chief complaint: GI Bleed Stated complaint: states has ulcerative colitis Time Seen by Provider: 10/06/24 22:00 Source: patient Mode of arrival: Ambulatory History of Present Illness HPI Narrative: 54-year-old male with past medical history of ulcerative colitis comes into the ED from home for evaluation of bright red blood per rectum. States it has been ongoing since last week and states he was seen here for it, he states that he has not been able to take his normal medications for this, however he denies any new symptoms at this time. Not on any blood thinners no trauma no falls. States that he has had improved bleeding but still having persistent bleeding therefore wanted to be evaluated and treated. He states that he is now currently on mesalamine prescribed by another doctor, but has not been taking any steroids or antibiotics. Patient denies any actual abdominal pain, no other symptoms at this time Related Data Previous Rx's Medication Instructions Recorded oxycodone 5 mg tablet 5 mg PO Q3H PRN Pain, Moderate 09/27/24 (4-6) #15 tabs prednisone 20 mg tablet 40 mg (2 x 20 mg) PO DAILY #60 tabs 09/27/24 mesalamine 1.2 gram tablet,delayed 2.4 g (2 x 1.2 gram) PO DAILY 8 09/29/24 release weeks #30 tabs prednisone 20 mg tablet 40 mg (2 x 20 mg) PO DAILY 1 week 10/07/24 #14 tabs Allergies Allergy/AdvReac Type Severity Reaction Status Date / Time latex Allergy Verified 01/02/24 08:49 Beef Containing Products AdvReac Unknown Verified 09/23/24 14:16 wheat AdvReac Unknown Gastrointestinal Verified 09/24/24 08:32 Upset dairy AdvReac Uncoded 01/02/24 08:49 vanilla AdvReac Uncoded 01/02/24 08:49 Review of Systems Review of Systems Narrative: General: Denies fever, chills, weight loss HEENT: Denies headache, eye drainage, eye irritation, head trauma, sore throat, voice change Cardiovascular: Denies any chest pain, palpitations, tachycardia Respiratory: Denies any shortness of breath, cough, wheeze, stridor GI/: Positive, Bright red blood per rectum Denies any abdominal pain, nausea, vomiting, diarrhea, melanotic stools, urinary frequency, urinary retention, dysuria, hematuria MSK: Denies any joint pain, muscle pains, swelling Skin: Denies any rashes, lesions, discoloration Neuro: Denies any headache, lightheadedness, dizziness, fainting, weakness Psych: Denies SI/HI Patient History Medical History (Updated 10/07/24 @ 00:08 by eDlbert Friedman DO) C. difficile colitis Abscess of rectum Irritable bowel syndrome Social History household members: children Smoking Status: Never smoker alcohol intake: current Smoking Status: Never smoker Alcohol type: hard liquor Exam Narrative Exam Narrative: General: Cooperative, well-developed, not in acute distress HEENT: Normocephalic, atraumatic, PERRLA, normal sclera, eyelids normal Neck: Active full range of motion, atraumatic Chest: Normal to inspection, negative crepitus, no overlying erythema ecchymosis Respiratory: Normal respiratory effort, not in acute respiratory distress, clear to auscultation bilaterally negative cough, wheeze, tachypnea, rhonchi, rales Cardiology: Regular rate rhythm negative gallop, murmur, rubs GI/: No tenderness to palpation, soft, non rigid, normal to inspection, exam: Hemoccult negative no internal hemorrhoids palpated, no anal fissures noted grossly normal MSK: Full active range of motion in all 4 extremities, atraumatic, no tenderness to palpation of any bony prominences Skin: No rashes or lesions noted Neuro: Alert awake oriented x3, moves all 4 extremities spontaneously, cranial nerves intact, able to answer all questions appropriately follows commands appropriately Psych: Cooperative, negative suicidal or homicidal ideations Initial Vital Signs Initial Vital Signs: Vital Signs Temperature 97.4 F L 10/06/24 18:54 Pulse Rate 103 H 10/06/24 18:54 Respiratory Rate 18 10/06/24 18:54 Blood Pressure 108/69 10/06/24 18:54 Pulse Oximetry 98 10/06/24 18:54 Oxygen Delivery Method Room Air 10/06/24 18:54 Course Orders Ordered: ED Orders 10/06/24 19:00 EKG-12 Lead Stat 10/06/24 19:30 Complete Blood Count AUTO DIFF Stat Comprehensive Metabolic Panel Stat PTT Partial Thromboplastin Derrick Stat Prothrombin Time INR Stat Type and Screen Stat 10/06/24 20:53 GI Panel (Film Array) Stat Urine Microscopic Stat Ondansetron HCl (Ondansetron 4 Mg/2 Ml Inj) 4 mg IV NOW PRN PRN Reason: Nausea And Vomiting Ondansetron HCl (Ondansetron 4 Mg Odt) 4 mg SL NOW PRN PRN Reason: Nausea And Vomiting Discontinued Medications Methylprednisolone (Methylprednisolone 125 Mg/2 Ml Vial) 125 mg IV NOW ONE Stop: 10/06/24 22:25 Last Admin: 10/06/24 22:31 Dose: 125 mg Documented By: AARON Vital Signs Vital signs: Vital Signs - 8 hr 10/06/24 18:54 10/06/24 19:45 10/06/24 20:00 Temperature 97.4 F L Pulse Rate 103 H 78 Respiratory Rate 18 27 H Blood Pressure 108/69 112/73 Pulse Oximetry 98 96 Oxygen Delivery Method Room Air 10/06/24 20:00 10/06/24 20:30 10/06/24 20:31 Temperature Pulse Rate 74 78 Respiratory Rate 10 L 26 H Blood Pressure 114/73 Pulse Oximetry 98 97 Oxygen Delivery Method 10/06/24 20:31 10/06/24 20:53 10/06/24 20:53 Temperature Pulse Rate 88 76 Respiratory Rate 32 H Blood Pressure 127/82 Pulse Oximetry 98 97 Oxygen Delivery Method 10/06/24 21:00 10/06/24 21:00 10/06/24 21:30 Temperature Pulse Rate 72 76 Respiratory Rate 26 H Blood Pressure 116/77 Pulse Oximetry 96 95 Oxygen Delivery Method 10/06/24 22:00 10/06/24 22:30 10/06/24 23:00 Temperature Pulse Rate 83 76 72 Respiratory Rate Blood Pressure Pulse Oximetry 95 96 95 Oxygen Delivery Method 10/06/24 23:30 Temperature Pulse Rate 70 Respiratory Rate 18 Blood Pressure Pulse Oximetry 94 Oxygen Delivery Method MDM - GI Bleed Differential Diagnosis Differential diagnosis: Likely hemorrhoids, hematochezia, melena, anal fissure and other (Crohn's flare-up, ulcerative colitis) Lab Data 10/06/24 19:30 10/06/24 19:30 Labs: Lab Results 10/06/24 10/06/24 Range/Units 19:30 20:53 WBC 7.2 (4.5-11.0) X10^3/uL RBC 4.21 L (4.5-5.9) X10^6/uL Hgb 12.2 L (13.5-17.5) g/dL Hct 36.0 L (41-53) % MCV 85.5 (80-100) fL MCH 28.9 (26-34) PG MCHC 33.8 (30-36) % RDW 13.6 (11.6-14.8) % Plt Count 292 (150-400) X10^3/uL Neut % (Auto) 82.1 H (50-75) % Lymph % (Auto) 8.3 L (25-40) % Mills % (Auto) 8.7 (3-14) % Eos % (Auto) 0.6 L (2-4) % Baso % (Auto) 0.3 (0-2) % Neut # (Auto) 5900 (9231-5622) /uL Lymph # (Auto) 600 L (3006-9318) /uL Mills # (Auto) 600 (0-900) /uL Eos # (Auto) 0 (0-450) /uL Baso # (Auto) 0 (0-100) /uL PT 13.0 H (9.4-12.5) SECONDS INR 1.1 (0.9-1.3) APTT 28 (25.1-36.5) SECONDS Sodium 133 L (137-145) mmol/L Potassium 3.4 (3.4-5.1) mmol/L Chloride 101 (98-107) mmol/L Carbon Dioxide 24 (22-32) mmol/L BUN 12 (9-20) mg/dL Creatinine 0.88 (0.66-1.25) mg/dL Estimated GFR > 60 (>60) mL/min BUN/Creatinine Ratio 13.6 (6-22) Glucose 147 H (70-100) mg/dL Calcium 7.9 L (8.4-10.2) mg/dL Total Bilirubin 0.4 (0.2-1.3) mg/dL AST 26 (17-59) IU/L ALT 78 H (<50) IU/L Alkaline Phosphatase 67 (38-126) U/L Total Protein 5.5 L (6.3-8.2) g/dL Albumin 2.8 L (3.5-5.0) g/dL Globulin 2.7 (1.7-4.1) g/dL Albumin/Globulin Ratio 1.0 (1.0-2.8) Urine RBC None seen (0-5/HPF) Urine WBC 0-1/hpf (0-5/HPF) Ur Squamous Epith Cells None seen (0-5/HPF) Urine Bacteria None seen (None) Ur Culture Indicated? Cult not indicated Vol Urine Centrifuged 10ml (spun) Stl C. cayetanensis PCR Not detected (Not Detect) Stool Rotavirus (PCR) Not detected (Not Detect) Stool Adenovirus (PCR) Not detected (Not Detect) Stool Astrovirus (PCR) Not detected (Not Detect) Stool Cryptosporidium PCR Not detected (Not Detect) Stl E.coli Shiga Tox PCR Not detected (Not Detect) St Sh/Enteroin Ecoli PCR Not detected (Not Detect) Stl Enterotoxigenic E PCR Not detected (Not Detect) Stool EPEC (PCR) Not detected (Not Detect) Stl E. histolytica PCR Not detected (Not Detect) Stool Giardia Lamblia PCR Not detected (Not Detect) Stool Sapovirus (PCR) Not detected (Not Detect) Stl P. shigelloides PCR Not detected (Not Detect) St Y.enterocolitica PCR Not detected (Not Detect) Stool Vibrio (PCR) Not detected (Not Detect) Stl Vibrio cholerae PCR Not detected (Not Detect) Stl Enteroaggr Ecoli PCR Not detected (Not Detect) Stl Norovirus GI/GII PCR Not detected (Not Detect) Campylobacter (PCR) Not detected (Not Detect) C. difficile Tox (PCR) Not detected (Not Detect) Salmonella (PCR) Not detected (Not Detect) Blood Type B Positive Antibody Screen Negative Point of Care Testing Stool Occult Blood Positive Urine Dip Bedside Urine Glucose Negative Bedside Urine Bilirubin - Negative Bedside Urine Ketone - Negative Urine Specific [place] 1.015 Bedside Urine Occult Blood - Negative Bedside Urine pH 6.5 Bedside Urine Protein +/- 15 Bedside Urine Urobilinogen - Negative Bedside Urine Nitrite - Negative Bedside Urine Leukocytes - Negative Esterase ECG Data Interpretation: EKG interpreted ED physician sinus 77 beats per minute QTC [address] changes no STEMI MDM Narrative Medical decision making narrative: 54-year-old male history of ulcerative colitis presents for persistent lower GI bleed, states he was seen here previously for similar states that he has been unable to take the medication he was discharged with, antibiotics and steroids but has not been taking this. He states another doctor did prescribe him mesalamine and he has been taking this. Patient states that he is having exactly the same symptoms which is cramping abdominal pain whenever he moves his bowels but denies any true actual abdominal pain whenever he is not. He does not take any blood thinners, does not have a perforating machine operator at this time, he states he has been fine for the past 10 years therefore has not followed up with a perforating machine operator currently. Patient's lab work unremarkable, hemoglobin 12.2, Chem panel unremarkable, urinalysis not consistent with acute urinary tract infection, patient did have GI panel performed here. Patient had 125 Solu-Medrol, patient states he has not appointment with a perforating machine operator next week. Patient's stool sample negative, patient will be sent home with prednisone and instructed follow up with his primary care doctor and his perforating machine operator for his scheduled appointment Review of records show that patient was seen here on 09/17/2024 for similar symptoms, patient did have CT angio abdomen and pelvis that did show distal colitis involving the colon throughout the rectum however no signs of ischemia no acute hemorrhage he was discharged home after dose of steroids and discharged home with prednisone and antibiotics Discharge Plan Departure Patient Disposition: Home Clinical Impression: BRBPR (bright red blood per rectum) Activity Restrictions/Additional Instructions: Please follow up with your perforating machine operator for your scheduled appointment Please read the discharge instructions sheet carefully and bring all papers to all doctor follow-up visits, as it may contain information that your doctor may want to see. Disease processes change and evolve, if your symptoms worsen or if you develop any new symptoms that are concerning to you please return for evaluation. Your evaluation today does not show any evidence of any life- threatening/serious illnesses requiring admission to the hospital or surgery. Please follow-up with your doctor for re-evaluation in approximately 1 day. Seek immediate medical attention for any worrisome symptoms. *If you do not have a primary care provider please contact the [facility] Resource line at [phone]. They will ask some questions about your medical history and help get you set up with a doctor in the community. Prescriptions: New prednisone 20 mg tablet 40 mg PO DAILY 7 Days Qty: 14 0RF No Action oxycodone 5 mg Tablet 5 mg PO Q3H PRN (Reason: Pain, Moderate (4-6)) Qty: 15 0RF prednisone 20 mg tablet 40 mg PO DAILY Qty: 60 0RF Rx Instructions: See PCP within a week to start slow prednisone taper. mesalamine 1.2 gram tablet,delayed release (DR/EC) 2.4 g PO DAILY 56 Days Qty: 30 3RF Referrals: Ese Joy MD [Primary Care Provider] - Stand Alone Forms: Patient Portal/API/Survey, Work Release Note
[2024-10-06] MEDS: methylPREDNISolone 125 MG/2 ML VIAL IV (22:31)
[2024-10-06 23:44] LABS: Adenovirus F 40/41 Not Detected (Not Detect); Astrovirus Not Detected (Not Detect); Campylobacter Not Detected (Not Detect); Clostridium difficile toxin AB Not Detected (Not Detect); Cryptosporidium Not Detected (Not Detect); Cyclospora cayetanensis Not Detected (Not Detect); Entamoeba histolytica Not Detected (Not Detect); Enteroaggregative E.coli Not Detected (Not Detect); Enteropathogenic E.coli Not Detected (Not Detect); Enterotoxigenic E.coli It/st Not Detected (Not Detect); Giardia lamblia Not Detected (Not Detect); Norovirus GI/GII Not Detected (Not Detect); Plesiomonsa shigelloides Not Detected (Not Detect); Rotavirus A Not Detected (Not Detect); Salmonella Not Detected (Not Detect); Sapovirus Not Detected (Not Detect); Shiga-like toxin-prod E.coli Not Detected (Not Detect); Shigella/Enteroinvasive E.coli Not Detected (Not Detect); Vibrio Not Detected (Not Detect); Vibrio cholerae Not Detected (Not Detect); Yersinia enterocolitica Not Detected (Not Detect)
[2024-10-07] VITALS: PULSE 75; O2SAT 96
[2024-10-07 00:08] VITALS: BP 118/78; PULSE 73; O2SAT 97
== END 2024-10-07 00:21 | disposition home or self-care (01) ==
PROVIDERS: Emergency Provider Student in an Organized Health Care Education/Training Program; PCP Family Medicine
DX: K62.5 Hemorrhage of anus and rectum (principal)
CPT/HCPCS: 36415; 80053; 81003; 81015; 82272; 85025; 85610; 85730; 86850; 86900; 86901; 87507; 93005; 96374; 99284; J2919